=== PATIENT | male | born 1950 | race Two or more races ===

== ENCOUNTER 2024-08-09 18:24 | Inpatient (IN) | payer OTHER, MEDICAID ==
[~2024-08-09] VITALS: Ht 165.1 cm; Wt 72.6 kg
--- NOTE | 2024-08-09 18:31 | ED.PDOC ---
GI ASSESSMENT HPI Comments BALWINDER: HPI: Poor Historian. 73-year-old male brought in by ambulance from home after a witnessed near syncope and collapse from generalized weakness. Patient was on his way to the bathroom and he had an assisted himself to the floor but no loss of consciousness and no seizure-like activity. Patient had episodes of vomiting 3 times following this complaint yellow vomit nonbilious nonbloody. Patient also complained of some nonspecific generalized abdominal pain. At home his vital signs were blood pressure 102/58, heart rate 85, respiratory rate 18. Patient's pulse ox was 92% at 2 L nasal cannula his baseline. Past Medical History: COPD, O2 dependent 2 L nasal cannula, hypothyroidism, hyperlipidemia, hypertension, seizure, diabetes. Patient is on Lasix Plavix and Keppra. Past Surgical History: REVIEW OF SYSTEMS: CONSTITUTIONAL: Denies acute: fever, diaphoresis, chills, HEAD: Denies acute: headache, photophobia Eyes: Denies acute: Double vision, vision loss, eye pain, eye discharge. EARS: Denies acute: tinnitus, hearing loss, ear discharge, ear pain, THROAT: Denies acute: sore throat, swelling, difficulty swallowing , pain with swallowing, change in voice. NECK: Denies acute: neck pain, neck swelling, stiff neck. HEART: Denies acute : chest pain, palpitations, LUNGS: Denies acute: SOB, wheezing, cough, hemoptysis ABDOMEN: Denies acute: diarrhea, melena , hematemesis, hematochezia SKIN: Denies acute: rash, redness, lesions, itchiness. EXTREMITIES: Denies acute: calf pain, numbness, tingling, weakness, denies pain in extremity. Denies acute: Low back pain. Neuro: Denies acute: focal neurological deficit, motor or sensory focal neurological deficit, tremors, seizure like activity, confusion, , change in mental status, loss of bowel or bladder function, cauda equina like symptoms. : Denies acute: dysuria, hematuria, flank pain, increase in urinary frequency. PSYCH: Denies acute: hallucination, suicidal ideation, homicidal ideation. PHYSICAL EXAM: General: ---[id number]-----acute distress, awake and alert. Head: normocephalic, atraumatic. Neck: supple, trachea is midline, no swelling. Throat: Normal phonation. Eyes:, no erythema, no purulent discharge, no proptosis, no icterus. Heart: regular rate, regular rhythm, no significant murmur appreciated. Lungs: no apparent respiratory distress, No wheezing, no rhonchi, no crackles. No stridors Clear to auscultation bilaterally. Abdomen: Nonspecific generalized tender to palpation, non distended, soft, no guarding, no rebound, + bowel sounds. Neuro: Awake, Alert, oriented to name, self, Skin: no petechia, no purpura, no cyanosis, non-pale, not jaundice. Lower extremities: --no - Pitting edema no deformity, no focal swelling, no calf TTP. Makes eye contact. moves all four extremities. Face: no apparent facial droop. ED COURSE: Time Seen by MD: 18:27 Reviewed Notes: Nurses Notes, Allergies Allergies: Coded Allergies: NO KNOWN ALLERGIES (Unverified , 08/09/24) Information Source: Patient Was a procedure done? Was a procedure done?: No GI differential Dx Differential Diagnosis: Other (DDX include but not limited to diverticulitis, colitis, gastroenteritis, acute abdomen, SBO, enteritis, constipation, volvulus, appendicitis, Gallbladder disease, choledocolithiasis, ascending cholangitis, pancreatitis, intraAbdominal mass/neoplasm, hepatitis, UTI, pylonephritis, kidney stone, aneurysm, dissection, Inflammatory bowel disease, gastroparesis, ischemic bowel.) X-Ray, Labs, Meds, VS Vital Signs Date Time Temp Pulse Resp B/P (MAP) Pulse Ox O2 Delivery O2 Flow Rate FiO2 08/10/24 00:51 98.2 96 98 126/68 (87) 96 98.2 08/09/24 22:23 98.1 105 20 127/99 (108) 98 98.1 08/09/24 20:00 101 18 96 Non-Rebreather 15 N/A 08/09/24 19:00 97.1 102 32 114/66 (82) 92 97.1 08/09/24 19:00 103 32 92 Nasal Cannula* 4 36 08/09/24 18:32 98.2 85 18 102/58 (73) 92 98.2 Lab Test 08/09/24 23:20 08/09/24 21:35 08/09/24 19:37 08/09/24 18:43 Range/Units Troponin I High Sensitivity 44 28 19 18 </=54 ng/L Lactic Acid Level 4.9 *H 5.0 *H 0.4-2.0 mmol/L White Blood Count 13.9 H 4.4-10.8 10^3/uL Red Blood Count 4.67 4.5-5.90 10^6/uL Hemoglobin 12.6 L 13.5-17.5 g/dL Hematocrit 38.9 L 41.0-53.0 % Mean Corpuscular Volume 83.2 80.0-100.0 fL Mean Corpuscular Hemoglobin 26.9 L 28.0-32.0 pg Mean Corpuscular Hemoglobin Concent 32.3 32.0-36.0 g/dL Red Cell Distribution Width 19.3 H 11.8-14.3 % Platelet Count 315 140-450 10^3/uL Mean Platelet Volume 8.6 6.9-10.8 fL Neutrophils (%) (Auto) 69.1 37.0-80.0 % Lymphocytes (%) (Auto) 25.3 10.0-50.0 % Monocytes (%) (Auto) 3.6 0.0-12.0 % Eosinophils (%) (Auto) 1.5 0.0-7.0 % Basophils (%) (Auto) 0.5 0.0-2.0 % Neutrophils # (Auto) 9.6 H 1.6-8.6 10 ^3/uL Lymphocytes # (Auto) 3.5 0.4-5.4 10 ^3/uL Monocytes # (Auto) 0.5 0-1.3 10 ^3/uL Eosinophils # (Auto) 0.2 0-0.8 10 ^3/uL Basophils # (Auto) 0.1 0-0.2 10 ^3/uL Nucleated Red Blood Cells 0.1 % Platelet Estimate Adequate Anisocytosis (manual) Slight Sodium Level 141 136-145 mmol/L Potassium Level 3.3 L 3.5-5.1 mmol/L Chloride Level 99 98-107 mmol/L Carbon Dioxide Level 28 20-31 mmol/L Anion Gap 14 5-15 Blood Urea Nitrogen 20 9-23 mg/dL Creatinine 2.33 H 0.700-1.30 mg/dL Glomerular Filtration Rate Calc 28 >90 mL/min BUN/Creatinine Ratio 8.6 L 10.0-20.0 Serum Glucose 177 H 74-106 mg/dL Calcium Level 9.9 8.7-10.4 mg/dL Total Bilirubin 0.2 0.2-1.0 mg/dL Aspartate Amino Transferase (AST) 29 13-40 U/L Alanine Aminotransferase (ALT) 19 7-40 U/L Alkaline Phosphatase 85 46-116 U/L B-Type Natriuretic Peptide 55.27 0-100 pg/mL Total Protein 6.8 5.7-8.2 g/dL Albumin 4.3 3.2-4.8 g/dL Lipase 28 12-53 U/L Test 08/09/24 00:00 Range/Units Urine Color Yellow Yellow Urine Clarity Turbid H Clear Urine pH 5.0 5.0-9.0 Urine Specific [place] 1.019 1.001-1.035 Urine Protein Trace H Negative Urine Ketones Negative Negative Urine Blood Negative Negative /uL Urine Nitrite Negative Negative Urine Bilirubin Negative Negative Urine Urobilinogen Normal Negative mg/dL Urine Leukocyte Esterase Negative Negative /uL Urine RBC 1 0 - 3 /hpf Urine Microscopic WBC 2 0-3 /HPF Urine Squamous Epithelial Cells Few <5 /hpf Urine Bacteria Few H None Seen /hpf Urine Glucose 1+ H Normal mg/dL Current Medications Medications (Trade) Dose Ordered Sig/[place] Route Start Time Stop Time Status Last Admin Sodium Chloride 1,000 ml @ 1,000 mls/hr Q1H ONCE IV 08/09/24 19:30 08/09/24 20:29 DC 08/09/24 19:30 Ondansetron HCl (Zofran) 8 mg ONCE ONCE IV 08/09/24 19:30 08/09/24 19:33 DC 08/09/24 20:18 Piperacillin Sod/ Tazobactam Sod 100 ml @ 100 mls/hr ONCE ONCE IV 08/09/24 20:15 08/09/24 21:14 DC 08/09/24 20:18 Sodium Chloride 1,000 ml @ 1,000 mls/hr Q1H ONCE IV 08/09/24 23:15 08/10/24 00:14 DC 08/09/24 23:19 [place] [id number] Ph: [phone] DIAGNOSTIC IMAGING Diagnostic Imaging Report : [id number] Signed PATIENT: MARY JANE BRITT ACCT: [id number] UNIT: [id number] : 1950 LOC: ER ROOM / BED: / AGE / SEX: 73 / M ADM STATUS: REG ER SERVICE 30 ORDERING PHYSICIAN: WINSTON LOPEZ DO PROCEDURE(s): CXRP - CHEST PORTABLE REASON: weak, dizzy ORDER NUMBER(s): [id number], ACCESSION NUMBER(s): [id number] EXAM: XY CHEST PORTABLE TECHNIQUE: Single frontal chest radiograph CLINICAL HISTORY: weak, dizzy COMPARISON: None Findings/Impression: Frontal chest radiograph demonstrates no acute osseous or superficial soft tissue abnormalities. The trachea is midline. The cardiac silhouette and mediastinum are within normal limits. No pneumothorax, pleural effusions, or consolidations. ATED BY: EUGENIA MAN DO DICTATED DATE/TIME: 08/09/241919 SIGNED BY: EUGENIA MAN DO SIGNED DATE/TIME: 08/09/241919 CC: [place] [id number] Ph: [phone] DIAGNOSTIC IMAGING Diagnostic Imaging Report : [id number] Signed PATIENT: MARY JANE BRITT ACCT: [id number] UNIT: [id number] : 1950 LOC: ER ROOM / BED: / AGE / SEX: 73 / M ADM STATUS: REG ER SERVICE 30 ORDERING PHYSICIAN: WINSTON LOPEZ DO PROCEDURE(s): ABPL - CT AB PEL WO CON-NO ORAL OR IV REASON: abd pain n/v ORDER NUMBER(s): [id number], ACCESSION NUMBER(s): [id number] Exam: CT CT AB PEL WO CON-NO ORAL OR IV History: abd pain n/v Comparison Study: None TECHNIQUE: Multidetector CT of the abdomen and pelvis was performed from lung bases to pubic symphysis. Imaging was performed without IV contrast. Axial, coronal, and sagittal multiplanar reformats were obtained from the axial data set by the technologist. RADIATION DOSE: DLP 687.99 mGy.cm; CTDI vol 13.03 mGy. Findings: There is motion artifact. Lungs: Numerous scattered clustered nodular opacities. Heart: No cardiomegaly or pericardial effusion. Severe coronary atherosclerosis versus stents. Liver: Unremarkable. Gallbladder: Cholelithiasis without evidence of acute cholecystitis. Spleen: Unremarkable Pancreas: Atrophic pancreas. Adrenals: Unremarkable Kidneys: Unremarkable GI tract: Diverticulosis without evidence of acute diverticulitis. : Unremarkable. Vasculature: Moderate aortoiliac atherosclerosis. Lymphadenopathy: Absent Peritoneum: No ascites Musculoskeletal: Mild multilevel degenerative changes of the thoracolumbar spine. Soft tissues: Unremarkable Impression: 1. No acute abdominopelvic abnormalities. 2. Cholelithiasis without evidence of acute cholecystitis. 3. Diverticulosis without evidence acute diverticulitis. ATED BY: EUGENIA MAN DO DICTATED DATE/TIME: 08/09/241956 SIGNED BY: EUGENIA MAN DO SIGNED DATE/TIME: 08/09/241956 CC: Images Reviewed?: Images reviewed and evaluated by me Time of 1ST Reevaluation: 21:14 Reevaluation 1ST: Improved Time of 2ND Reevaluation: 22:40 ( is now at bedside.) Reevaluation 2ND: Improved Time of 3RD Reevaluation: 23:13 (Urinalysis still pending.The case was discussed with the [facility] admitting team (HPI, physical exam, labs and diagnostic tests that were available at the time of disposition, ED course, treatment plan) on the phone. They authorized us to keep the patient our facility Dr. berrios Authorization number is--[id number] doctor communicated to me that the patient's baseline creatinine is 1.7 so the patient is in acute kidney insufficiency. His ejection fraction in December of 2023 is 55-60% I will give more fluids.) Patient Education/Counseling: Other Family Education/Counseling: Diagnosis, Treatment Comments Sepsis protocol was initiated. Patient was given conservative fluid hydration given his history of CHF on Lasix with unknown ejection fraction. Patient presented with the above HPI.---cardiac and abdominal pain---workup was initiated. patient was found with the above mentioned diagnosis. the following medications were ordered: please refer to order lists of meds and tests obtained by myself Dr. Lopez. Patient ED course and VS have been stabilized. Patient has been reassessed in the ED and remained in a stable condition. Pertinent incidental findings were discussed with the patient and/or family. Patient/family voices understanding and is agreeable with plan. Patient has been observed in the ED adequate length of time to insure improvement/stability. Escalation of care considered: Consideration of escalation to observation or admission George was consulted. Patient was ADMITTED to the medicine team for further evaluation and treatment of their presentation. All the reports of any imaging studies that were ordered by myself were reviewed by myself. Departure 1 Departure Time of Disposition: 19:30 Impression: Primary Impression: Near syncope Additional Impressions: Nausea and vomiting Abdominal pain Sepsis Leukocytosis Elevated lactic acid level Acute renal insufficiency Disposition: ADMITTED INPATIENT Admit to: [facility] Condition: Guarded Discharged With: Self Critical Care Note Critical Care Time?: Yes (1 hr-critical care time only) Heart Score Heart Score: Heart Score Response (Comments) Value History Slightly Suspicious 0 EKG Normal 0 Age >65 2 Risk Factors >3 or Hx ASHD 2 Troponin Normal limit 0 Total 4 I personally scribed for WINSTON LOPEZ DO ([email or web address]) on 08/09/24 at 21:21. Electronically submitted by Wilberto Kebede ([email or web address]). WINSTON LOPEZ DO Aug 09, 2024 18:31
[2024-08-09 19:00] VITALS: PULSE 103; RESP 32; O2SAT 92
[2024-08-09 19:10] LABS: Basophils # (auto) 0.1 10 ^3/uL (0-0.2); Eosinophils # (auto) 0.2 10 ^3/uL (0-0.8); Hemoglobin 12.6 g/dL (13.5-17.5); Nucleated Red Blood Cells % 0.1 %
[2024-08-09 19:12] LABS: Basophils % (auto) 0.5 % (0.0-2.0); Eosinophils % (auto) 1.5 % (0.0-7.0); Hematocrit 38.9 % (41.0-53.0); Lymphocytes # (auto) 3.5 10 ^3/uL (0.4-5.4); Lymphocytes % (auto) 25.3 % (10.0-50.0); Mean Corpuscular Hemoglobin 26.9 pg (28.0-32.0); Mean Corpuscular Hgb Conc. 32.3 g/dL (32.0-36.0); Mean Corpuscular Volume 83.2 fL (80.0-100.0); Monocytes # (auto) 0.5 10 ^3/uL (0-1.3); Monocytes % (auto) 3.6 % (0.0-12.0); Neutrophils # (auto) 9.6 10 ^3/uL (1.6-8.6); Neutrophils % (auto) 69.1 % (37.0-80.0); Platelet Count (auto) 315 10^3/uL (140-450); Red Blood Cells 4.67 10^6/uL (4.5-5.90); Red Cell Distribution Width 19.3 % (11.8-14.3); White Blood Cell 13.9 10^3/uL (4.4-10.8)
--- NOTE | 2024-08-09 19:23 | DVH ---
EXAM: XY CHEST PORTABLE TECHNIQUE: Single frontal chest radiograph CLINICAL HISTORY: weak, dizzy COMPARISON: None Findings/Impression: Frontal chest radiograph demonstrates no acute osseous or superficial soft tissue abnormalities. The trachea is midline. The cardiac silhouette and mediastinum are within normal limits. No pneumothorax, pleural effusions, or consolidations.
[2024-08-09] MEDS: SODIUM CHLORIDE 0.9% 1,000 ML IV ONE ×2 (19:30→23:19)
[2024-08-09 19:45] LABS: Alanine Aminotransferase 19 U/L (7-40); Albumin 4.3 g/dL (3.2-4.8); Alkaline Phosphatase 85 U/L (46-116); Anion Gap 14 (5-15); Aspartate Aminotransferase 29 U/L (13-40); BUN/Creatinine Ratio 8.6 (10.0-20.0); Blood Urea Nitrogen 20 mg/dL (9-23); Calcium 9.9 mg/dL (8.7-10.4); Carbon Dioxide 28 mmol/L (20-31); Chloride 99 mmol/L (98-107); Lipase 28 U/L (12-53); Sodium 141 mmol/L (136-145); Total Protein 6.8 g/dL (5.7-8.2)
[2024-08-09 19:49] LABS: Bilirubin, Total 0.2 mg/dL (0.2-1.0); Glucose 177 mg/dL (74-106); Potassium 3.3 mmol/L (3.5-5.1)
[2024-08-09 20:00] VITALS: PULSE 101; RESP 18; O2SAT 96
--- NOTE | 2024-08-09 20:00 | DVH ---
Exam: CT CT AB PEL WO CON-NO ORAL OR IV History: abd pain n/v Comparison Study: None TECHNIQUE: Multidetector CT of the abdomen and pelvis was performed from lung bases to pubic symphysi s. Imaging was performed without IV contrast. Axial, coronal, and sagittal multiplanar reformats were obtained from the axial data set by the technologist. RADIATION DOSE: DLP 687.99 mGy.cm; CTDI vol 13.03 mGy. Findings: There is motion artifact. Lungs: Numerous scattered clustered nodular opacities. Heart: No cardiomegaly or pericardial effusion. Severe coronary atherosclerosis versus stents. Liver: Unremarkable. Gallbladder: Cholelithiasis without evidence of acute cholecystitis. Spleen: Unremarkable Pancreas: Atrophic pancreas. Adrenals: Unremarkable Kidneys: Unremarkable GI tract: Diverticulosis without evidence of acute diverticulitis. : Unremarkable. Vasculature: Moderate aortoiliac atherosclerosis. Lymphadenopathy: Absent Peritoneum: No ascites Musculoskeletal: Mild multilevel degenerative changes of the thoracolumbar spine. Soft tissues: Unremarkable Impression: 1. No acute abdominopelvic abnormalities. 2. Cholelithiasis without evidence of acute cholecystitis. 3. Diverticulosis without evidence acute diverticulitis.
[2024-08-09] MEDS: ONDANSETRON HCL 4 MG/2 ML VIAL IV ONE (20:18)
[2024-08-09] MEDS: PIPERACILLIN-TAZOB 3.375GM 100 ML IV ONE (20:18)
[2024-08-09 20:41] LABS: Anisocytosis Slight; Platelet Estimate Adequate
[2024-08-10] VITALS (23 sets, daily range): BP systolic 91–138; BP diastolic 43–68; PULSE 83–105; RESP 16–30; TEMP 98–98.6; O2SAT 88–100
[2024-08-10 00:06] LABS: Urine Bacteria FEW /hpf (None Seen); Urine Blood Negative /uL (Negative); Urine Clarity Turbid (Clear); Urine Color Yellow (Yellow); Urine Protein, UAD TRACE (Negative); Urine Specific Gravity 1.019 (1.001-1.035); Urine Squamous Epithelial Cell FEW /hpf (<5); Urine Urobilinogen Normal (Negative); Urine WBC 2 /HPF (0-3)
[2024-08-10] MEDS ORDERED: MORPHINE SULFATE INJ 2 MG/ml SYRG IV PRN (01:15)
[2024-08-10] MEDS ORDERED: NITROGLYCERIN 0.4 MG SL TAB SL PRN (01:15)
[2024-08-10 01:57] LABS: Basophils # (auto) 0 10 ^3/uL (0-0.2); Basophils % (auto) 0.2 % (0.0-2.0); Eosinophils # (auto) 0 10 ^3/uL (0-0.8); Hematocrit 34.1 % (41.0-53.0); Hemoglobin 11.1 g/dL (13.5-17.5); Lymphocytes # (auto) 0.1 10 ^3/uL (0.4-5.4); Lymphocytes % (auto) 3.5 % (10.0-50.0); Mean Corpuscular Hemoglobin 27.3 pg (28.0-32.0); Mean Corpuscular Hgb Conc. 32.6 g/dL (32.0-36.0); Mean Corpuscular Volume 83.9 fL (80.0-100.0); Monocytes # (auto) 0.4 10 ^3/uL (0-1.3); Monocytes % (auto) 10.4 % (0.0-12.0); Neutrophils # (auto) 3.6 10 ^3/uL (1.6-8.6); Neutrophils % (auto) 85.9 % (37.0-80.0); Nucleated Red Blood Cells % 0.1 %; Platelet Count (auto) 206 10^3/uL (140-450); Red Blood Cells 4.06 10^6/uL (4.5-5.90); Red Cell Distribution Width 19.5 % (11.8-14.3); White Blood Cell 4.2 10^3/uL (4.4-10.8)
[2024-08-10 02:01] LABS: Alanine Aminotransferase 18 U/L (7-40); Albumin 3.8 g/dL (3.2-4.8); Alkaline Phosphatase 65 U/L (46-116); Anion Gap 11 (5-15); Aspartate Aminotransferase 28 U/L (13-40); BUN/Creatinine Ratio 9.4 (10.0-20.0); Blood Urea Nitrogen 22 mg/dL (9-23); Carbon Dioxide 26 mmol/L (20-31); Chloride 101 mmol/L (98-107); Potassium 3.9 mmol/L (3.5-5.1); Sodium 138 mmol/L (136-145); Total Protein 5.9 g/dL (5.7-8.2)
[2024-08-10 02:02] LABS: Bilirubin, Total 0.3 mg/dL (0.2-1.0)
[2024-08-10 02:34] LABS: Calcium 8.5 mg/dL (8.7-10.4); Glucose 291 mg/dL (74-106); Lactic Acid w/Reflex 4.2 mmol/L (0.4-2.0)
[2024-08-10 02:41] LABS: COVID19 ANTIGEN SOFIA FIA NEGATIVE (NEGATIVE); Rapid Influenza A Negative (Negative); Rapid Influenza B Negative (Negative)
[2024-08-10] MEDS: levETIRAcetam 1000 mg/100ml 100 ML IV ONE (02:45)
[2024-08-10] MEDS ORDERED: DEXTROSE (50%) 50ML SYRG IV PRN ×2 (03:00→07:45)
[2024-08-10] MEDS: POTASSIUM CHL 20MEQ/100ML 100 ML IV SCH (03:05)
[2024-08-10] MEDS: SODIUM CHLORIDE 0.9% 1,000 ML IV ONE (03:13)
[2024-08-10] MEDS: INSULIN LANTUS (GLARGINE) 1 /0.01ml (100units/ml) SC ONE (03:22)
[2024-08-10] MEDS: methylPREDNISolone SOD SUCC 40 MG/ML VL IV ONE (04:07)
[2024-08-10] MEDS: ALBUTEROL SULF 2.5 MG/0.5ML(0.5%) NEB SOLN NEB ONE (04:14)
[2024-08-10] MEDS: IPRATROPIUM BROM 0.5 MG/2.5ML INH SOL NEB ONE (04:14)
[2024-08-10] MEDS: PIPERACILLIN-TAZOB 3.375GM 100 ML IV SCH (05:15)
--- NOTE | 2024-08-10 05:28 | DVHHPRES ---
History of Present Illness Resident Creating Document: REBECCA MARES RESIDENT History of Present Illness Patient is a 73-year-old male with a past medical history of type 2 diabetes mellitus, hypertension, COPD, coronary artery disease status post PCI in 2023 according to his son, hyperlipidemia, seizure disorder was brought to the ER from [place] where he was for physical therapy rehabilitation had apparently had an episode of a fall but denied loss of consciousness and no seizure-like activity was witnessed. Patient also had episode of vomiting 3 times which was nonbilious and nonbloody. On talking to the patient while in the ER a good history could not be obtained because patient was sleepy and even with the using the wire rope sling maker his voice was not clear and he was not able to speak in full sentences. Patient's son Rohit Euceda was called to confirmed that the patient was in [place] [facility] and he got a call that he was being transferred to [facility] apparently for abdominal pain and reports that patient was there for physical therapy rehab. He also foods patient having recurrent vomitings but does not know the reason. Past medical history: Insulin dependent type 2 diabetes mellitus, hypertension, COPD, coronary artery disease status post PCI in 2023 according to his son, hyperlipidemia, seizure disorder, Past surgical history could not be obtained Social history: Lives with his , as per the son patient does not smoke drink or do any drugs Home medications: Insulin Humulin, Keppra 1000 mg b.i.d., losartan 100 mg, atorvastatin 80 mg, clopidogrel, ?Amiodarone Review of Systems Review of Systems Patient seen and examined at the bedside On oxygen via nasal cannula at 4 L/min and is not able to talk in full sentences with the use of accessory muscles of breathing Denies chest pain Reports of abdominal pain with a generalized tenderness/discomfort to palpation Is able to follow commands and is alert and oriented x3 Allergies: Coded Allergies: NO KNOWN ALLERGIES (Unverified , 08/09/24) Medications Current Medications Medications Dose Ordered Sig/[place] Route Start Time Stop Time Status Last Admin Dose Admin Nitroglycerin 0.4 mg Q5MINP PRN SL 08/10/24 01:15 Morphine Sulfate 2 mg Q30M PRN IV 08/10/24 01:15 Piperacillin Sod/ Tazobactam Sod 100 ml @ 25 mls/hr Q8HR IV 08/10/24 06:00 Levetiracetam 100 ml @ 400 mls/hr BID IV 08/10/24 10:00 Diagnostic Test (Pha) 1 strip Q6HR 08/10/24 06:00 Insulin Human Regular Q6HR SC 08/10/24 06:00 Dextrose 50 ml UD PRN IV 08/10/24 03:00 Albuterol 2.5 mg Q6HR NEB 08/10/24 06:00 Ipratropium [place] 0.5 mg Q6HR NEB 08/10/24 06:00 Exam Vital Signs Vital Signs Date Time Temp Pulse Resp B/P (MAP) Pulse Ox O2 Delivery O2 Flow Rate FiO2 08/10/24 04:16 90 30 96 08/10/24 04:16 Nasal Cannula 5.0 08/10/24 04:16 40 08/10/24 00:51 98.2 126/68 (87) 98.2 Exam Gen - no pallor, no icterus, no cyanosis, no clubbing, no LAD, no edema . Skin - Patients skin is warm and dry. HEENT - normocephalic, atraumatic, dry mucous membranes. Neck - full ROM, no LAD, JV pulsation in the lower 3rd of the SCM Pulmonary - B/L diminished breath sounds with the associated scattered wheezes, minimal basilar crackles, no stridor. cardiovascular - regular S1,S2 heard, no added sounds, no murmurs heard. perip heral pulses normal radial 2+, pedal 2+. capillary refill normal about 3 secs. GI - soft abdomen with diffuse generalized mild tenderness to palpation. no hepatospleenomegaly. Bowel sounds normoactive Neurological - Patient is A/O X 3 . Bilateral upper extremity strength 4/5, bilateral lower extremity strength 3/5, no facial droop, speech normal, no tremor, no sensory deficiets. Labs/Xrays Labs Test 08/10/24 03:32 08/10/24 03:17 08/10/24 01:50 08/10/24 01:33 Range/Units Lactic Acid Level 4.0 *H 0.4-2.0 mmol/L POC Glucose 299 H 70-106 mg/dl Influenza Type A Antigen Negative Negative Influenza Type B Antigen Negative Negative SARS-CoV-2 Antigen (Rapid) Negative NEGATIVE White Blood Count 4.2 #L 4.4-10.8 10^3/uL Red Blood Count 4.06 L 4.5-5.90 10^6/uL Hemoglobin 11.1 L 13.5-17.5 g/dL Hematocrit 34.1 #L 41.0-53.0 % Mean Corpuscular Volume 83.9 80.0-100.0 fL Mean Corpuscular Hemoglobin 27.3 L 28.0-32.0 pg Mean Corpuscular Hemoglobin Concent 32.6 32.0-36.0 g/dL Red Cell Distribution Width 19.5 H 11.8-14.3 % Platelet Count 206 140-450 10^3/uL Mean Platelet Volume 8.7 6.9-10.8 fL Neutrophils (%) (Auto) 85.9 H 37.0-80.0 % Lymphocytes (%) (Auto) 3.5 L 10.0-50.0 % Monocytes (%) (Auto) 10.4 0.0-12.0 % Eosinophils (%) (Auto) 0.0 0.0-7.0 % Basophils (%) (Auto) 0.2 0.0-2.0 % Neutrophils # (Auto) 3.6 1.6-8.6 10 ^3/uL Lymphocytes # (Auto) 0.1 L 0.4-5.4 10 ^3/uL Monocytes # (Auto) 0.4 0-1.3 10 ^3/uL Eosinophils # (Auto) 0 0-0.8 10 ^3/uL Basophils # (Auto) 0 0-0.2 10 ^3/uL Nucleated Red Blood Cells 0.1 % Sodium Level 138 136-145 mmol/L Potassium Level 3.9 3.5-5.1 mmol/L Chloride Level 101 98-107 mmol/L Carbon Dioxide Level 26 20-31 mmol/L Anion Gap 11 5-15 Blood Urea Nitrogen 22 9-23 mg/dL Creatinine 2.33 H 0.700-1.30 mg/dL Glomerular Filtration Rate Calc 28 >90 mL/min BUN/Creatinine Ratio 9.4 L 10.0-20.0 Serum Glucose 291 #H 74-106 mg/dL Hemoglobin A1c 9.3 H <5.7 % A1C Calcium Level 8.5 L 8.7-10.4 mg/dL Total Bilirubin 0.3 0.2-1.0 mg/dL Aspartate Amino Transferase (AST) 28 13-40 U/L Alanine Aminotransferase (ALT) 18 7-40 U/L Alkaline Phosphatase 65 46-116 U/L Total Protein 5.9 5.7-8.2 g/dL Albumin 3.8 3.2-4.8 g/dL Test 08/10/24 01:32 08/09/24 23:20 08/09/24 18:43 08/09/24 00:00 Range/Units Blood Gas Specimen Type Arterial Blood Gas Sample Site Right brachial Blood Gas Patient Temperature 37.0 Arterial Blood Date Drawn [id number] Arterial Blood pH 7.288 L 7.350-7.450 Arterial Blood Partial Pressure CO2 51.0 H 35.0-48.0 mmHg Arterial Blood Partial Pressure O2 88.8 83.0-108.0 mmHg Arterial Blood HCO3 23.9 21.0-28.0 mmol/L Arterial Blood Oxygen Saturation 95.4 94.0-98.0 % Arterial Blood Base Excess -3.0 L -2.0-3.0 mmol/L Arterial Blood Oxyhemoglobin 94.8 94.0-98.0 % Arterial Blood Carboxyhemoglobin 0.5 0.5-1.5 % Arterial Blood Methemoglobin 0.1 0.0-1.5 % Charles Test N/a Blood Gas Total Hemoglobin 11.40 L 13.5-17.5 g/dL Blood Gas Liter Flow 15.00 Blood Gas Modality Mask - nrb FiO2 % 100.0 Troponin I High Sensitivity 44 </=54 ng/L Platelet Estimate Adequate Anisocytosis (manual) Slight B-Type Natriuretic Peptide 55.27 0-100 pg/mL Lipase 28 12-53 U/L Urine Color Yellow Yellow Urine Clarity Turbid H Clear Urine pH 5.0 5.0-9.0 Urine Specific [place] 1.019 1.001-1.035 Urine Protein Trace H Negative Urine Ketones Negative Negative Urine Blood Negative Negative /uL Urine Nitrite Negative Negative Urine Bilirubin Negative Negative Urine Urobilinogen Normal Negative mg/dL Urine Leukocyte Esterase Negative Negative /uL Urine RBC 1 0 - 3 /hpf Urine Microscopic WBC 2 0-3 /HPF Urine Squamous Epithelial Cells Few <5 /hpf Urine Bacteria Few H None Seen /hpf Urine Glucose 1+ H Normal mg/dL Assessment/Plan Assessment/Plan acute metabolic encephalopathy likely due to sepsis History of seizure disorder - on Keppra 1000 mg b.i.d. Acute on chronic hypoxic respiratory failure COPD exacerbation Possible aspiration pneumonia Possible underlying congestive heart failure - ABG showed respiratory acidosis - chest x-ray showed pulmonary venous congestion, interstitial opacities - lower lungs in the CT abdomen showed bilateral opacities more on the right - point of care ultrasound showed a right lung B lines - DuoNebs q.6 hours - methylprednisolone 40 mg q.8 hours - Zosyn q.8 hours - sputum culture pending - COVID and influenza negative ?congestive heart failure Coronary artery disease s/p PCI - echo pending - EKG pending - BNP normal - chest x-ray and CT abdomen shows lower lungs opacifications suspicion of fluid overload - Plavix and atorvastatin - Lasix currently held because the patient is septic Sepsis likely due to aspiration pneumonia Lactic acidosis - IV fluids total 3 L given - on Zosyn - sputum culture pending - blood culture pending Acute intractable abdominal pain Cholelithiasis - CT abdomen pelvis shows cholelithiasis without evidence of cholecystitis, diverticulosis - right upper quadrant ultrasound pending - on pureed diet GRETCHEN on CKD likely prerenal due to be VMN - urine studies pending - IV fluids given Uncontrolled insulin dependent type 2 diabetes mellitus with hyperglycemia - insulin Lantus 12 units - moderate insulin sliding scale - pureed diet PUD prophylaxis: Protonix DVT prophylaxis: Heparin( poor kidney function) Goals of care discussed with the patient's son Rohit for over 25 minutes. Full code Time spent: 47 minutes Plan discussed with Dr. Springer Plan discussed with: Patient, Son My Orders Orders - REBECCA MARES RESIDENT Procedure Category Date Status Time Admit ADMIT 08/10/24 Transmitted 01:02 Nitroglycerin PHA 08/10/24 In Process Sublingual (Ntrostat 01:15 Morphine Sulfate PHA 08/10/24 In Process Injection 01:15 Oxygen By Nasal RT 08/10/24 Transmitted Cannula 01:02 Stat Ekg For Chest JAMIL 08/10/24 In Process Pain 01:02 Notify Of Changes [facility] 08/10/24 In Process From Base 01:02 Nurse Receptionist For [facility] 08/10/24 In Process 24 Hours 01:02 Emergency Dysrhythmia [facility] 08/10/24 In Process Protocol 01:02 Rhythm Strips Once [facility] 08/10/24 In Process Every Shift 01:02 Abg W/ Co-Ox RT 08/10/24 Logged 01:02 Piperacillin-Tazob PHA 08/10/24 In Process 3.375gm (Zosyn 3.375g 06:00 Mrsa Screen SAMANTHA 08/10/24 Logged 01:02 Respiratory Culture SAMANTHA 08/10/24 Logged W/ Gs 01:02 Levetiracetam 1000 PHA 08/10/24 In Process Mg/100ml (Levetiracet 10:00 Glucose Blood PHA 08/10/24 In Process (Accu-Chek Comfort 06:00 Insulin R (Human) PHA 08/10/24 In Process (Insulin R) 06:00 Dextrose 50% Syringe PHA 08/10/24 In Process 03:00 Npo (Nothing By DIET 08/10/24 Transmitted Mouth) Diet Breakfast Echo 2d Mode Cardiac US 08/10/24 Logged DOP 02:53 Albuterol Medneb PHA 08/10/24 In Process (Ventolin Medneb) 06:00 Ipratropium Medneb PHA 08/10/24 In Process (Atrovent Medneb) 06:00 Insert Peres Catheter JAMIL 08/10/24 In Process 03:52 Strict I & O JAMIL 08/10/24 In Process 03:52 Date of Service: Aug 10, 2024 Billing Provider: JG SPRINGER MD Common Visit Codes: [id number] INP/OBS CARE (HIGH) Secondary Visit Codes: [id number] CARE PLAN 30 MINUTES REBECCA MARES RESIDENT Aug 10, 2024 05:28
[2024-08-10] MEDS ORDERED: InsuLIN REG 1unit/0.01ml Soln (100units/ml) SC SCH (06:00)
[2024-08-10] MEDS: ACCU-CHEK COMFORT CURVE STRIP VI SCH ×2 (06:09→11:30)
[2024-08-10] MEDS: PANTOPRAZOLE 40 MG/10 ML VIAL INJ IV SCH (06:09)
[2024-08-10] MEDS: InsuLIN REG 1unit/0.01ml Soln (100units/ml) SC SCH ×2 (06:14→12:16)
[2024-08-10] MEDS ORDERED: LOSA-535 PO (06:21)
[2024-08-10] MEDS ORDERED: ATOR-47 PO (06:21)
[2024-08-10] MEDS ORDERED: LEVE100012 PO (06:21)
[2024-08-10] MEDS: IPRATROPIUM BROM 0.5 MG/2.5ML INH SOL NEB SCH (06:26)
[2024-08-10] MEDS: ALBUTEROL SULF 2.5 MG/0.5ML(0.5%) NEB SOLN NEB SCH (06:26)
[2024-08-10 07:58] LABS: Protein, Urine 37.3 mg/dL (1-14)
[2024-08-10 07:59] LABS: Creatinine, Urine 87.22 mg/dL (30.0-125.0); Urine Protein/Creatinine Ratio 0.43
--- NOTE | 2024-08-10 08:41 | DVH ---
US BiLat Lower DVT HISTORY: Rule out DVT COMPARISON: None TECHNIQUE: Duplex doppler evaluation of the deep venous system of the lower extremity from the common femoral veins, superficial femoral vein, great saphenous vein, deep femoral vein, popliteal vein, an d calf veins, including color doppler and spectral/pulsed waveform analysis, was performed. FINDINGS: Right: - Common femoral vein: Compressible - Deep femoral vein: Compressible - Femoral vein: Compressible - Popliteal vein: Compressible - Posterior tibial vein: Waveforms present - Other: Nothing Left: - Common femoral vein: Compressible - Deep femoral vein: Compressible - Femoral vein: Compressible - Popliteal vein: Compressible - Posterior tibial vein: No flow. - Other: Nothing IMPRESSION: Small DVT in the left posterior tibial vein. Otherwise no right or left lower extremity deep venous t hrombosis.
[2024-08-10] MEDS: levETIRAcetam 1000 mg/100ml 100 ML IV SCH (08:54)
[2024-08-10] MEDS: CLOPIDOGREL BISULFATE 75 MG TAB PO SCH (08:57)
[2024-08-10] MEDS: HEPARIN SODIUM (PORCINE) 5000 UNITS/ML 1ML VIAL SC SCH (09:07)
[2024-08-10 09:18] LABS: Lactic Acid w/Reflex 7.2 mmol/L (0.4-2.0)
[2024-08-10 10:05] LABS: Anion Gap 13 (5-15); Carbon Dioxide 23 mmol/L (20-31); Chloride 103 mmol/L (98-107); Hematocrit 32.2 % (41.0-53.0); Hemoglobin 10.6 g/dL (13.5-17.5); Mean Corpuscular Hemoglobin 27.3 pg (28.0-32.0); Mean Corpuscular Hgb Conc. 32.9 g/dL (32.0-36.0); Mean Corpuscular Volume 83.1 fL (80.0-100.0); Platelet Count (auto) 189 10^3/uL (140-450); Potassium 3.9 mmol/L (3.5-5.1); Red Blood Cells 3.87 10^6/uL (4.5-5.90); Red Cell Distribution Width 19.1 % (11.8-14.3); Sodium 139 mmol/L (136-145); White Blood Cell 7.6 10^3/uL (4.4-10.8)
[2024-08-10 10:05] LABS: Base Excess -2.1 mmol/L (-2.0-3.0)
[2024-08-10 10:07] LABS: Basophils % (manual) 0 (0.0-2.0); Blast Cells 0; Eosinophils % (manual) 0 (0-7); Metamyelocytes % 0; Myelocytes % 0; Promyelocytes % 0; Reactive Lymphocytes 0
[2024-08-10 10:11] LABS: BUN/Creatinine Ratio 12.3 (10.0-20.0); Blood Urea Nitrogen 24 mg/dL (9-23); Glucose 372 mg/dL (74-106)
--- NOTE | 2024-08-10 10:15 | DVH ---
INDICATION: Right upper quadrant to rule out acute cholecystitis TECHNIQUE: Multiple real-time sonographic images of the abdomen were obtained. COMPARISON: None FINDINGS: The liver is homogenous in echogenicity. The liver measures 14cm. No intrahepatic biliary ductal dilatation is noted. The gallbladder wall measures 0.2 cm and is unremarkable. No gallstones or sludge is seen. No brian cholecystic fluid is noted. The right kidney measures 12cm. No hydronephrosis. The pancreas is not well visualized due to obscuration from bowel gas. The visualized portions of the IVC and aorta are grossly unremarkable. IMPRESSION: Normal exam of the abdomen.
[2024-08-10 10:54] LABS: Band Neutrophils % (manual) 22; Lymphocytes % (manual) 13 (10.0-50.0); Monocytes % (manual) 3 (0-12); Platelet Estimate Adequate
[2024-08-10] MEDS: INSULIN LISPRO (HUMAN) 100 UNITS/ML ML SC SCH (12:20)
[2024-08-10] MEDS: ENOXAPARIN SOD 80 MG/0.8ML SYRINGE SC SCH (12:20)
--- NOTE | 2024-08-10 13:31 | DVHPNRES ---
Progress Note Date Seen: Aug 10, 2024 Resident Creating Document: EMANUEL FIORE RESIDENT Has the PT tested + for MRSA If YES, has PT been informed?: No Medical Necessity Reason Pt with a Central, PICC or Fol: No Subjective Review of Systems Patient is a 73-year-old male with a past medical history of type 2 diabetes mellitus, hypertension, COPD, coronary artery disease status post PCI in 2023 according to his son, hyperlipidemia, seizure disorder was brought to the ER from [place] [facility] where he was for physical therapy rehabilitation had apparently had an episode of a fall but denied loss of consciousness and no seizure-like activity was witnessed. Patient also had episode of vomiting 3 times which was nonbilious and nonbloody. On talking to the patient while in the ER a good history could not be obtained because patient was sleepy and even with the using the court operations clerk his voice was not clear and he was not able to speak in full sentences. Patient's son Rohit Euceda was called to confirmed that the patient was in [place] [facility] and he got a call that he was being transferred to [facility] apparently for abdominal pain and reports that patient was there for physical therapy rehab. He also foods patient having recurrent vomitings but does not know the reason. Past medical history: Insulin dependent type 2 diabetes mellitus, hypertension, COPD, coronary artery disease status post PCI in 2023 according to his son, hyperlipidemia, seizure disorder, Past surgical history could not be obtained Social history: Lives with his , as per the son patient does not smoke drink or do any drugs Home medications: Insulin Humulin, Keppra 1000 mg b.i.d., losartan 100 mg, atorvastatin 80 mg, clopidogrel, ?Amiodarone 08/10/2024: talking to the at bedside, patient had an episode of near syncope, w/o fall or LOC, patient is being altered since 2 days ago, vomiting yellow content, patient smoked for many years and sometimes hide cigarettes from his , a month ago he was in [facility] due to high BP and uncontrolled diabetes and later transferred to [facility] for PT rehab Objective vital signs Vital Sign Date Time Temp Pulse Resp B/P (MAP) Pulse Ox O2 Delivery O2 Flow Rate FiO2 08/10/24 12:57 98.6 83 16 135/59 (84) 96 98.6 08/10/24 10:15 Nasal Cannula* 2 28 Total Intake and Output 6/5/25 6/5/25 6/6/25 15:00 23:00 07:00 Intake Total 2100 ml Balance 2100 ml medications Current Medications Medications Dose Ordered Sig/[place] Route Start Time Stop Time Status Last Admin Dose Admin Nitroglycerin 0.4 mg Q5MINP PRN SL 08/10/24 01:15 Morphine Sulfate 2 mg Q30M PRN IV 08/10/24 01:15 Piperacillin Sod/ Tazobactam Sod 100 ml @ 25 mls/hr Q8HR IV 08/10/24 06:00 08/10/24 05:15 25 MLS/HR Levetiracetam 100 ml @ 400 mls/hr BID IV 08/10/24 10:00 08/10/24 08:54 400 MLS/HR Albuterol 2.5 mg Q6HR NEB 08/10/24 06:00 08/10/24 12:20 2.5 MG Methylprednisolone Sodium Succinate 40 mg Q8HR IV 08/10/24 14:00 Clopidogrel Bisulfate 75 mg DAILY PO 08/10/24 10:00 08/10/24 08:57 75 MG Atorvastatin Calcium 80 mg HS PO 08/10/24 22:00 Pantoprazole Sodium 40 mg DAILY IV 08/10/24 06:00 08/10/24 08:57 40 MG Insulin Glargine 18 units HS ND 08/10/24 22:00 Insulin Human Lispro 6 units [facility] 08/10/24 11:30 08/10/24 12:20 6 UNITS Diagnostic Test (Pha) 1 strip ACHS 08/10/24 11:30 08/10/24 11:30 1 STRIP Insulin Human Regular use insulin lispro ... AC ND 08/10/24 11:30 08/10/24 12:16 4 UNITS Dextrose 50 ml UD PRN IV 08/10/24 07:45 Enoxaparin Sodium 70 mg Q12HR ND 08/10/24 11:30 08/10/24 12:20 70 MG Examination Gen - no pallor, no icterus, no cyanosis, no clubbing, no LAD, no edema . Skin - Patients skin is warm and dry. HEENT - normocephalic, atraumatic, dry mucous membranes. Neck - full ROM, no LAD, JV pulsation in the lower 3rd of the SCM Pulmonary - B/L diminished breath sounds with the associated scattered wheezes, minimal basilar crackles, no stridor. cardiovascular - regular S1,S2 heard, no added sounds, no murmurs heard. peripheral pulses normal radial 2+, pedal 2+. capillary refill normal about 3 secs. GI - soft abdomen with diffuse generalized mild tenderness to palpation. no hepatospleenomegaly. Bowel sounds normoactive Neurological - Patient is A/O X 3 . Bilateral upper extremity strength 4/5, bilateral lower extremity strength 3/5, no facial droop, speech normal, no tremor, no sensory deficiets laboratory and microbiology Laboratory Tests 08/10/24 09:33 Test 08/10/24 09:33 Range/Units Serum Glucose 372 H 74-106 mg/dL Problem List/Assessment/Plan Problem List/Assessment/Plan acute metabolic encephalopathy likely due to sepsis History of seizure disorder - on Keppra 1000 mg b.i.d. Acute on chronic hypoxic respiratory failure COPD exacerbation Sepsis Pneumonia gram+/gram- Possible aspiration pneumonia Possible underlying congestive heart failure - ABG showed respiratory acidosis: that later improved, now in O2 2 lt no need of bipap - chest x-ray showed pulmonary venous congestion, interstitial opacities - lower lungs in the CT abdomen showed bilateral opacities more on the right - point of care ultrasound showed a right lung B lines - DuoNebs q.6 hours - methylprednisolone 40 mg q.8 hours - Zosyn q.8 hours - sputum culture pending - COVID and influenza negative DVT in left posterior tibial vein. PE ruled out VQ scan negative Enoxaparin 70 mg SC BID GFR more than 30 ?congestive heart failure Coronary artery disease s/p PCI - echo pending - EKG pending - BNP normal - chest x-ray and CT abdomen shows lower lungs opacifications suspicion of fluid overload - Plavix and atorvastatin - Lasix currently held because the patient is septic Sepsis likely due to aspiration pneumonia Lactic acidosis - IV fluids total 3 L given - on Zosyn - sputum culture pending - blood culture pending Acute intractable abdominal pain Cholelithiasis - CT abdomen pelvis shows cholelithiasis without evidence of cholecystitis, diverticulosis - right upper quadrant ultrasound pending - on pureed diet GRETCHEN on CKD possible ATN improving - IV fluids given Uncontrolled insulin dependent type 2 diabetes mellitus with hyperglycemia - insulin Lantus 22 units -lispro 8ui TID - moderate insulin sliding scale - pureed diet Goals of care discussed with the patient's son Rohit for over 25 minutes. Full code Time spent: 47 minutes Plan discussed with Dr. Fuller Plan discussed with: Patient, Other (rn) My Orders My Orders Orders - EMANUEL FIORE RESIDENT Procedure Category Date Status Time * Breaker Operator CONS 08/10/24 Transmitted Consult Abg W/ Co-Ox RT 08/10/24 Logged 07:26 Nm Vq Scan NM 08/10/24 Logged 10:52 Enoxaparin Sodium PHA 08/10/24 In Process (Lovenox) 11:30 Creatinine LAB 08/11/24 Verified 05:00 Wound Culture W/ Gs SAMANTHA 08/10/24 Uncollected 12:24 Lactic Acid W/ Reflex LAB 08/10/24 In Process Order 12:25 Date of Service: Aug 10, 2024 Billing Provider: FERNANDO FULLER MD Common Visit Codes: [id number] INP/OBS CARE(HIGH) EMANUEL FIORE RESIDENT Aug 10, 2024 13:31 FERNANDO FULLER MD Aug 14, 2024 14:41
[2024-08-10 13:47] LABS: Lactic Acid w/Reflex 6.4 mmol/L (0.4-2.0)
[2024-08-10] MEDS: methylPREDNISolone SOD SUCC 40 MG/ML VL IV SCH (14:00)
--- NOTE | 2024-08-10 15:34 | DVH ---
EXAM: NM NM VQ SCAN HISTORY: PULMONARY EMBOLISM COMPARISON: None TECHNIQUE: 4.5 mCi of xenon 133 were utilized for the perfusion portion of the study. 5 mCi of Tc99m DTPA were utilized for the ventilation portion of the study. Comparison made to chest radiograph from 08/09/2024. FINDINGS: Ventilation and perfusion images show no large mismatched defects. IMPRESSION: 1. Low probability for pulmonary embolism.
[2024-08-10] MEDS: ACETAMINOPHEN 325 MG TAB PO PRN (18:13)
--- NOTE | 2024-08-10 21:00 | DVHSR ---
APPROVED REPORT EXAM: Two-dimensional and M-mode echocardiogram with Doppler and color Doppler. Blood Pressure: 104/43 mmHg INDICATION Dyspnea RISK FACTORS Height: 5'5", Weight: 158 DIMENSIONS LVDd4.6 (3.8-5.7cm)LA (2D)3.8 (1.9-4.0cm)Aortic Root2.9 (2.0-3.7cm) LVDs3.5 (2.5-4.0cm)LA (MM) (1.9-4.0cm)Aortic Cusp Exc1.7 (1.5-2.0cm) EF (%) 50.0 (55-70%)Rt. Atrium3.0 (1.9-4.0cm)Asc. Aorta cm IVSd1.3 (0.7-1.1cm)RV (D)3.3 (1.8-2.4cm) PWd1.0 (0.7-1.1cm) Mitral Valve MitralMitral Stenosis E/A ratio0.02D MVAcm2 Aortic Valve Aortic ValveAortic Stenosis V11.02m/Ilan Mean GR.4mmHg V21.29m/Ilan Peak GR.7mmHg LVOT Diameter2.0 (1.8-2.4cm)Doppler AVA2.48cm2 Pulmonic Valve V21.17m/s Tricuspid Valve TR Velocity2.75m/s [id number] Conclusion MILD LVH AND MILD LV DIASTOLIC DYSFUNCTION LV EF IS 65% NORMAL VALVES NO EFFUSION NORMAL RV FUNCTION
[2024-08-10] MEDS: INSULIN LANTUS (GLARGINE) 1 /0.01ml (100units/ml) SC SCH (22:00)
[2024-08-10] MEDS: ATORVASTATIN 20 MG TAB PO SCH (22:43)
[2024-08-11] VITALS (18 sets, daily range): BP systolic 109–153; BP diastolic 51–66; PULSE 82–102; RESP 17–20; TEMP 97.8–98.4; O2SAT 90–100
[2024-08-11] MEDS: PANTOPRAZOLE 40 MG/10 ML VIAL INJ IV ONE (03:01)
[2024-08-11] MEDS: INSULIN LISPRO (HUMAN) 100 UNITS/ML ML SC SCH ×2 (05:29→12:45)
[2024-08-11 05:53] LABS: Hemoglobin 10.2 g/dL (13.5-17.5)
[2024-08-11 05:56] LABS: Hematocrit 31.8 % (41.0-53.0); Mean Corpuscular Hemoglobin 26.7 pg (28.0-32.0); Mean Corpuscular Hgb Conc. 32.1 g/dL (32.0-36.0); Mean Corpuscular Volume 83.1 fL (80.0-100.0); Platelet Count (auto) 186 10^3/uL (140-450); Red Blood Cells 3.83 10^6/uL (4.5-5.90); Red Cell Distribution Width 20.1 % (11.8-14.3); White Blood Cell 12.2 10^3/uL (4.4-10.8)
[2024-08-11 06:03] LABS: Basophils % (manual) 0 (0.0-2.0); Blast Cells 0; Eosinophils % (manual) 0 (0-7); Metamyelocytes % 0; Myelocytes % 0; Promyelocytes % 0; Reactive Lymphocytes 0
[2024-08-11 06:10] LABS: Alanine Aminotransferase 17 U/L (7-40); Albumin 3.7 g/dL (3.2-4.8); Alkaline Phosphatase 60 U/L (46-116); Anion Gap 11 (5-15); Aspartate Aminotransferase 27 U/L (13-40); BUN/Creatinine Ratio 19.2 (10.0-20.0); Bilirubin, Total 0.5 mg/dL (0.2-1.0); Calcium 9.4 mg/dL (8.7-10.4); Carbon Dioxide 25 mmol/L (20-31); Chloride 101 mmol/L (98-107); Potassium 4.3 mmol/L (3.5-5.1); Sodium 137 mmol/L (136-145); Total Protein 5.8 g/dL (5.7-8.2)
[2024-08-11 06:14] LABS: Blood Urea Nitrogen 28 mg/dL (9-23)
[2024-08-11 06:17] LABS: Glucose 491 mg/dL (74-106); Lactic Acid w/Reflex 2.8 mmol/L (0.4-2.0)
[2024-08-11 06:24] LABS: Anisocytosis Slight; Band Neutrophils % (manual) 17; Lymphocytes % (manual) 12 (10.0-50.0); Monocytes % (manual) 4 (0-12); Platelet Estimate Adequate
[2024-08-11] MEDS ORDERED: INSULIN LISPRO (HUMAN) 100 UNITS/ML ML SC SCH (07:00)
[2024-08-11] MEDS: SODIUM CHLORIDE 0.9% 500 ML IV ONE (10:45)
[2024-08-11] MEDS: INSULIN LANTUS (GLARGINE) 1 /0.01ml (100units/ml) SC SCH (12:45)
--- NOTE | 2024-08-11 14:54 | DVHPNRES ---
Progress Note Date Seen: Aug 11, 2024 Resident Creating Document: FAMILIA MARSH TOÑA Has the PT tested + for MRSA If YES, has PT been informed?: No Medical Necessity Reason Pt with a Central, PICC or Fol: No Subjective Review of Systems Patient seen and examined at the bedside patient is still complained of generalized body pain and shortness of bed. Objective vital signs Vital Sign Date Time Temp Pulse Resp B/P (MAP) Pulse Ox O2 Delivery O2 Flow Rate FiO2 08/11/24 13:33 101 08/11/24 13:00 98.0 18 140/56 (84) 94 98.0 08/11/24 11:26 Nasal Cannula 1.0 08/11/24 11:26 24 Total Intake and Output 08/10/24 08/10/24 08/11/24 15:00 23:00 07:00 Intake Total 300 ml 1480 ml 2050 ml Output Total 875 ml 3025 ml Balance 300 ml 605 ml -975 ml medications Current Medications Medications Dose Ordered Sig/[place] Route Start Time Stop Time Status Last Admin Dose Admin Nitroglycerin 0.4 mg Q5MINP PRN SL 08/10/24 01:15 Morphine Sulfate 2 mg Q30M PRN IV 08/10/24 01:15 Piperacillin Sod/ Tazobactam Sod 100 ml @ 25 mls/hr Q8HR IV 08/10/24 06:00 08/11/24 05:35 25 MLS/HR Levetiracetam 100 ml @ 400 mls/hr BID IV 08/10/24 10:00 08/11/24 10:28 400 MLS/HR Albuterol 2.5 mg Q6HR NEB 08/10/24 06:00 08/11/24 11:26 2.5 MG Clopidogrel Bisulfate 75 mg DAILY PO 08/10/24 10:00 08/11/24 10:28 75 MG Atorvastatin Calcium 80 mg HS PO 08/10/24 22:00 08/10/24 22:43 80 MG Pantoprazole Sodium 40 mg DAILY IV 08/10/24 06:00 08/11/24 10:28 40 MG Diagnostic Test (Pha) 1 strip ACHS 08/10/24 11:30 08/11/24 11:30 1 STRIP Insulin Human Regular use insulin lispro ... AC SC 08/10/24 11:30 08/11/24 11:30 5 UNITS Dextrose 50 ml UD PRN IV 08/10/24 07:45 Enoxaparin Sodium 70 mg Q12HR SC 08/10/24 11:30 08/11/24 10:28 70 MG Acetaminophen 325 mg Q6HP PRN PO 08/10/24 17:30 08/11/24 05:50 325 MG Insulin Glargine 26 units HS SC 08/11/24 12:45 08/11/24 12:45 26 UNITS Insulin Human Lispro 12 units TID SC 08/11/24 12:45 08/11/24 12:45 12 UNITS Methylprednisolone Sodium Succinate 40 mg DAILY IV 08/12/24 10:00 Examination Gen - no pallor, no icterus, no cyanosis, no clubbing, no LAD, no edema . Skin - Patients skin is warm and dry. HEENT - normocephalic, atraumatic, dry mucous membranes. Neck - full ROM, no LAD, JV pulsation in the lower 3rd of the SCM Pulmonary - B/L diminished breath sounds with the associated scattered wheezes, minimal basilar crackles, no stridor. cardiovascular - regular S1,S2 heard, no added sounds, no murmurs heard. peripheral pulses normal radial 2+, pedal 2+. capillary refill normal about 3 secs. GI - soft abdomen with diffuse generalized mild tenderness to palpation. no hepatospleenomegaly. Bowel sounds normoactive Neurological - Patient is A/O X 3 . Bilateral upper extremity strength 4/5, bilateral lower extremity strength 3/5, no facial droop, speech normal, no tremor, no sensory deficiets laboratory and microbiology Laboratory Tests 08/11/24 05:13 Test 08/11/24 05:13 Range/Units Serum Glucose 491 #*H 74-106 mg/dL Microbiology Date/Time Source Procedure Growth Status 08/10/24 07:27 Nose MRSA Screen - Final Complete 08/09/24 20:38 Blood Blood Culture - Preliminary NO GROWTH AFTER 24 HOURS OF INCUBATION. Resulted Labs and/or images reviewed: Labs reviewed by me, Image(s) reviewed by me Problem List/Assessment/Plan Problem List/Assessment/Plan acute metabolic encephalopathy likely due to sepsis History of seizure disorder - on Keppra 1000 mg b.i.d. Acute on chronic hypoxic respiratory failure COPD exacerbation Sepsis Pneumonia gram+/gram- Possible aspiration pneumonia Possible underlying congestive heart failure - ABG showed respiratory acidosis: that later improved, now in O2 2 lt no need of bipap - chest x-ray showed pulmonary venous congestion, interstitial opacities - lower lungs in the CT abdomen showed bilateral opacities more on the right - point of care ultrasound showed a right lung B lines - DuoNebs q.6 hours - methylprednisolone 40 mg q.8 hours - Zosyn q.8 hours - sputum culture pending - COVID and influenza negative DVT in left posterior tibial vein. PE ruled out VQ scan negative Enoxaparin 70 mg SC BID GFR more than 30 ?congestive heart failure Coronary artery disease s/p PCI - echo pending - EKG pending - BNP normal - chest x-ray and CT abdomen shows lower lungs opacifications suspicion of fluid overload - Plavix and atorvastatin - Lasix currently held because the patient is septic Sepsis likely due to aspiration pneumonia Lactic acidosis - IV fluids total 3 L given - on Zosyn - sputum culture pending - blood culture pending Acute intractable abdominal pain Cholelithiasis - CT abdomen pelvis shows cholelithiasis without evidence of cholecystitis, diverticulosis - right upper quadrant ultrasound pending - on pureed diet GRETCHEN on CKD possible ATN improving - IV fluids given 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 Plan discussed with Dr. 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 Encourage optimal PO intake 2) Initiate vitamin C @ 500 mg bid and zinc sulfate @ 220 mg qd for 7-10 days 3) Refer to outpatient RD/CD[facility] for diabetes education 4) Follow-up with cardiology, pulmonology, and gastroenterology 5) Continue to monitor I&O, labs, and skin integrity Expected Outcomes/Goals: 1) appetite and labs to improve 2) wounds to improve 3) f/u in 3-5 days Date of Service: Aug 11, 2024 Billing Provider: ZOEY DURAND MD Common Visit Codes: [id number] INP/OBS CARE(HIGH) FAMILIA MARSH RESDIENT Aug 11, 2024 14:54 ZOEY DURAND MD Aug 13, 2024 21:44
[2024-08-11] MEDS ORDERED: INSULIN LANTUS (GLARGINE) 1 /0.01ml (100units/ml) SC SCH (22:00)
[2024-08-12] VITALS (18 sets, daily range): BP systolic 108–153; BP diastolic 52–86; PULSE 71–98; RESP 17–24; TEMP 97.3–98.2; O2SAT 91–100
[2024-08-12 06:10] LABS: Basophils # (auto) 0 10 ^3/uL (0-0.2); Basophils % (auto) 0.1 % (0.0-2.0); Eosinophils # (auto) 0 10 ^3/uL (0-0.8); Hemoglobin 9.9 g/dL (13.5-17.5); Lymphocytes # (auto) 0.9 10 ^3/uL (0.4-5.4); Lymphocytes % (auto) 7.4 % (10.0-50.0); Monocytes # (auto) 0.7 10 ^3/uL (0-1.3)
[2024-08-12 06:13] LABS: Alanine Aminotransferase 19 U/L (7-40); Albumin 3.4 g/dL (3.2-4.8); Alkaline Phosphatase 55 U/L (46-116); Anion Gap 8 (5-15); BUN/Creatinine Ratio 20.2 (10.0-20.0); Blood Urea Nitrogen 19 mg/dL (9-23); Calcium 8.8 mg/dL (8.7-10.4); Carbon Dioxide 30 mmol/L (20-31); Chloride 106 mmol/L (98-107); Hematocrit 29.6 % (41.0-53.0); Mean Corpuscular Hgb Conc. 33.2 g/dL (32.0-36.0); Mean Corpuscular Volume 81.2 fL (80.0-100.0); Monocytes % (auto) 5.7 % (0.0-12.0); Neutrophils # (auto) 10.5 10 ^3/uL (1.6-8.6); Neutrophils % (auto) 86.8 % (37.0-80.0); Platelet Count (auto) 194 10^3/uL (140-450); Red Blood Cells 3.65 10^6/uL (4.5-5.90); Red Cell Distribution Width 19.7 % (11.8-14.3); Sodium 144 mmol/L (136-145); White Blood Cell 12.1 10^3/uL (4.4-10.8)
[2024-08-12 06:14] LABS: Bilirubin, Total 0.3 mg/dL (0.2-1.0)
[2024-08-12 06:28] LABS: Potassium 3.1 mmol/L (3.5-5.1)
[2024-08-12 06:29] LABS: Glucose 125 mg/dL (74-106); Total Protein 5.5 g/dL (5.7-8.2)
[2024-08-12 06:44] LABS: Aspartate Aminotransferase 46 U/L (13-40)
[2024-08-12 07:30] LABS: Anisocytosis Moderate; Platelet Estimate Adequate
[2024-08-12] MEDS: levETIRAcetam 500 MG TAB PO SCH (09:00)
[2024-08-12] MEDS: methylPREDNISolone SOD SUCC 40 MG/ML VL IV SCH (09:00)
[2024-08-12] MEDS: POTASSIUM CHLORIDE 40 MEQ, LIDOCAINE 1% (LOCAL ANESTH.) 4 ML in SODIUM CHL 0.9% 250 ML IV ONE (09:03)
--- NOTE | 2024-08-12 11:52 | DVHDSRES ---
Discharge Summary Date of Admission Resident Creating Document: EMANUEL FIORE RESIDENT Aug 10, 2024 at 01:02 Date of Discharge: Aug 12, 2024 Admitting Diagnosis acute respiratory failure COPD exacerbation DVT Labs/Diagnostic Data: Laboratory Results Test 08/12/24 11:32 08/12/24 05:05 08/11/24 07:56 08/11/24 05:13 POC Glucose 255 mg/dl (70-106) White Blood Count 12.1 10^3/uL (4.4-10.8) Red Blood Count 3.65 10^6/uL (4.5-5.90) Hemoglobin 9.9 g/dL (13.5-17.5) Hematocrit 29.6 % (41.0-53.0) Mean Corpuscular Volume 81.2 fL (80.0-100.0) Mean Corpuscular Hemoglobin 27.0 pg (28.0-32.0) Mean Corpuscular Hemoglobin Concent 33.2 g/dL (32.0-36.0) Red Cell Distribution Width 19.7 % (11.8-14.3) Platelet Count 194 10^3/uL (140-450) Mean Platelet Volume 8.7 fL (6.9-10.8) Neutrophils (%) (Auto) 86.8 % (37.0-80.0) Lymphocytes (%) (Auto) 7.4 % (10.0-50.0) Monocytes (%) (Auto) 5.7 % (0.0-12.0) Eosinophils (%) (Auto) 0.0 % (0.0-7.0) Basophils (%) (Auto) 0.1 % (0.0-2.0) Neutrophils # (Auto) 10.5 10 ^3/uL (1.6-8.6) Lymphocytes # (Auto) 0.9 10 ^3/uL (0.4-5.4) Monocytes # (Auto) 0.7 10 ^3/uL (0-1.3) Eosinophils # (Auto) 0 10 ^3/uL (0-0.8) Basophils # (Auto) 0 10 ^3/uL (0-0.2) Nucleated Red Blood Cells 0.0 % Platelet Estimate Adequate Anisocytosis (manual) Moderate Sodium Level 144 mmol/L (136-145) Potassium Level 3.1 mmol/L (3.5-5.1) Chloride Level 106 mmol/L (98-107) Carbon Dioxide Level 30 mmol/L (20-31) Anion Gap 8 (5-15) Blood Urea Nitrogen 19 mg/dL (9-23) Creatinine 0.94 mg/dL (0.700-1.30) Glomerular Filtration Rate Calc 85 mL/min (>90) BUN/Creatinine Ratio 20.2 (10.0-20.0) Serum Glucose 125 mg/dL (74-106) Calcium Level 8.8 mg/dL (8.7-10.4) Total Bilirubin 0.3 mg/dL (0.2-1.0) Aspartate Amino Transferase (AST) 46 U/L (13-40) Alanine Aminotransferase (ALT) 19 U/L (7-40) Alkaline Phosphatase 55 U/L (46-116) Total Protein 5.5 g/dL (5.7-8.2) Albumin 3.4 g/dL (3.2-4.8) Lactic Acid Level 2.9 mmol/L (0.4-2.0) Differential Total Cells Counted 100.0 (100) Neutrophils % (Manual) 67 (37.0-80.0) Band Neutrophils % (Manual) 17 Lymphocytes % (Manual) 12 (10.0-50.0) Monocytes % (Manual) 4 (0-12) Eosinophils % (Manual) 0 (0-7) Basophils % (Manual) 0 (0.0-2.0) Metamyelocytes % (manual) 0 Myelocytes % (Manual) 0 Promyelocytes % (Manual) 0 Blast Cells % (Manual) 0 Reactive Lymphocytes 0 Test 08/10/24 09:36 08/10/24 09:33 08/10/24 06:52 08/10/24 01:50 Blood Gas Specimen Type Arterial Blood Gas Sample Site Right radial Blood Gas Patient Temperature 37.0 Arterial Blood Date Drawn [id number] Arterial Blood pH 7.377 (7.350-7.450) Arterial Blood Partial Pressure CO2 39.8 mmHg (35.0-48.0) Arterial Blood Partial Pressure O2 64.0 mmHg (83.0-108.0) Arterial Blood HCO3 22.9 mmol/L (21.0-28.0) Arterial Blood Oxygen Saturation 91.1 % (94.0-98.0) Arterial Blood Base Excess -2.1 mmol/L (-2.0-3.0) Arterial Blood Oxyhemoglobin 90.1 % (94.0-98.0) Arterial Blood Carboxyhemoglobin 0.9 % (0.5-1.5) Arterial Blood Methemoglobin 0.2 % (0.0-1.5) [place] Test Yes Blood Gas Total Hemoglobin 10.80 g/dL (13.5-17.5) Blood Gas Liter Flow 1.00 Blood Gas Modality Nasal cannula FiO2 % 24.0 D-Dimer, Quantitative 1.86 mg/L FEU (0.0-0.49) Urine Creatinine 87.22 mg/dL (30.0-125.0) Urine Protein/Creatinine Ratio 0.43 Urine Sodium < 10 mmol/L (40-220) Urine Total Protein 37.3 mg/dL (1-14) Influenza Type A Antigen Negative (Negative) Influenza Type B Antigen Negative (Negative) SARS-CoV-2 Antigen (Rapid) Negative (NEGATIVE) Test 08/10/24 01:33 08/09/24 23:20 08/09/24 18:43 08/09/24 00:00 Hemoglobin A1c 9.3 % A1C (<5.7) Troponin I High Sensitivity 44 ng/L (</=54) B-Type Natriuretic Peptide 55.27 pg/mL (0-100) Lipase 28 U/L (12-53) Urine Color Yellow (Yellow) Urine Clarity Turbid (Clear) Urine pH 5.0 (5.0-9.0) Urine Specific [place] 1.019 (1.001-1.035) Urine Protein Trace (Negative) Urine Ketones Negative (Negative) Urine Blood Negative /uL (Negative) Urine Nitrite Negative (Negative) Urine Bilirubin Negative (Negative) Urine Urobilinogen Normal mg/dL (Negative) Urine Leukocyte Esterase Negative /uL (Negative) Urine RBC 1 /hpf (0 - 3) Urine Microscopic WBC 2 /HPF (0-3) Urine Squamous Epithelial Cells Few /hpf (<5) Urine Bacteria Few /hpf (None Seen) Urine Glucose 1+ mg/dL (Normal) Other Laboratory Tests 08/12/24 05:05 Brief Hx & Hospital Course: A 73-year-old male with PMHx of insulin-dependent type 2 diabetes mellitus, hypertension, COPD, coronary artery disease s/p PCI in 2023, hyperlipidemia, seizure disorder, and prior episodes of syncope was transferred from [facility] for altered mental status and possible aspiration pneumonia. Patient was noted to be somnolent, disoriented, with vomiting, yellow content, and poor oral intake. On admission, patient was febrile with acute encephalopathy, tachypnea, and required supplemental oxygen. Workup revealed acute on chronic hypoxic respiratory failure due to COPD exacerbation, aspiration pneumonia, and possible underlying CHF (B-lines on POCUS, bilateral infiltrates on imaging). Patient also had signs of sepsis (elevated lactate), GRETCHEN on CKD, and acute metabolic encephalopathy likely secondary to sepsis. Treatment included IV fluids, antibiotics (Zosyn), steroids (Solu-Medrol), oxygen support, and insulin titration. No seizures were reported during hospitalization, and Keppra was continued. DVT was found in US Patient improved clinically, with resolution of acute hypoxia, down-titration of oxygen from 2L to 1L/min, improvement in mentation, and stabilization of renal function. Anticoagulation for DVT (left posterior tibial vein) was continued with enoxaparin. Medications on Discharge: Keppra 1000 mg BID, Lantus 26 units QHS, Lispro 12 units TID, sliding scale insulin, clopidogrel, atorvastatin, losartan, amiodarone, enoxaparin 70 mg BID SC, home medications resumed. Disposition: Stable for transfer to [facility]. Discharge Needs: Home oxygen at 1L/min via nasal cannula Continue anticoagulation with enoxaparin 70 mg SC BID Follow up with PCP and cardiology Continue aspiration precautions and diabetic diet Operations or Procedures EXAM: NM NM VQ SCAN HISTORY: PULMONARY EMBOLISM COMPARISON: None TECHNIQUE: 4.5 mCi of xenon 133 were utilized for the perfusion portion of the study. 5 mCi of Tc99m DTPA were utilized for the ventilation portion of the study. Comparison made to chest radiograph from 08/09/2024. FINDINGS: Ventilation and perfusion images show no large mismatched defects. IMPRESSION: 1. Low probability for pulmonary embolism. US BiLat Lower DVT HISTORY: Rule out DVT COMPARISON: None TECHNIQUE: Duplex doppler evaluation of the deep venous system of the lower extremity from the common femoral veins, superficial femoral vein, great saphenous vein, deep femoral vein, popliteal vein, and calf veins, including color doppler and spectral/pulsed waveform analysis, was performed. FINDINGS: Right: - Common femoral vein: Compressible - Deep femoral vein: Compressible - Femoral vein: Compressible - Popliteal vein: Compressible - Posterior tibial vein: Waveforms present - Other: Nothing Left: - Common femoral vein: Compressible - Deep femoral vein: Compressible - Femoral vein: Compressible - Popliteal vein: Compressible - Posterior tibial vein: No flow. - Other: Nothing IMPRESSION: Small DVT in the left posterior tibial vein. Otherwise no right or left lower extremity deep venous thrombosis. Exam: CT CT AB PEL WO CON-NO ORAL OR IV History: abd pain n/v Comparison Study: None TECHNIQUE: Multidetector CT of the abdomen and pelvis was performed from lung bases to pubic symphysis. Imaging was performed without IV contrast. Axial, coronal, and sagittal multiplanar reformats were obtained from the axial data set by the technologist. RADIATION DOSE: DLP 687.99 mGy.cm; CTDI vol 13.03 mGy. Findings: There is motion artifact. Lungs: Numerous scattered clustered nodular opacities. Heart: No cardiomegaly or pericardial effusion. Severe coronary atherosclerosis versus stents. Liver: Unremarkable. Gallbladder: Cholelithiasis without evidence of acute cholecystitis. Spleen: Unremarkable Pancreas: Atrophic pancreas. Adrenals: Unremarkable Kidneys: Unremarkable GI tract: Diverticulosis without evidence of acute diverticulitis. : Unremarkable. Vasculature: Moderate aortoiliac atherosclerosis. Lymphadenopathy: Absent Peritoneum: No ascites Musculoskeletal: Mild multilevel degenerative changes of the thoracolumbar spine. Soft tissues: Unremarkable Impression: 1. No acute abdominopelvic abnormalities. 2. Cholelithiasis without evidence of acute cholecystitis. 3. Diverticulosis without evidence acute diverticulitis. Condition at Discharge: Stable Final Diagnosis/Problems List acute metabolic encephalopathy likely due to sepsis History of seizure disorder Acute on chronic hypoxic respiratory failure COPD exacerbation Sepsis Pneumonia gram+/gram- Possible aspiration pneumonia Possible underlying congestive heart failure DVT in left posterior tibial vein. PE ruled out ?congestive heart failure Coronary artery disease s/p PCI Sepsis likely due to aspiration pneumonia Lactic acidosis Acute intractable abdominal pain Cholelithiasis GRETCHEN on CKD possible ATN improving Uncontrolled insulin dependent type 2 diabetes mellitus with hyperglycemia Discharge Disposition: Acute Care Facility Discharge Instruct/Medications Diet: Consistent carbohydrate, Cardiac 2g Na,low cholest Activity: Bed rest Follow Up/Referral: per addison Medications: per addison Discharge Statement: "Patient was advised to return to the ER or call 911 if any headaches, dizziness, shortness of breath, chest pain, abdominal pain, bleeding, fevers, or worsening of medical condition. Patient was counseled about treatment plan, medications, possible side effects, patientverbalized understanding. All questions were answered to the best of my ability. This discharge took greater then 30 minutes in planning, reviewing documentation, counseling the patient, and discussing with other team members." ASSESSMENT ASSESSMENT Assessment acute respiratory failure COPD exacerbation DVT Date of Service: Aug 12, 2024 Billing Provider: ZOEY OAKES MD Common Visit Codes: 81824-CCT/OBS DISCH DAY >30min EMANUEL FIORE RESIDENT Aug 12, 2024 11:52 ZOEY OAKES MD Aug 13, 2024 21:45
[2024-08-13] VITALS (17 sets, daily range): BP systolic 128–148; BP diastolic 60–72; PULSE 72–96; RESP 17–24; TEMP 97.2–98.3; O2SAT 90–100
[2024-08-13 05:54] LABS: Basophils # (auto) 0 10 ^3/uL (0-0.2); Basophils % (auto) 0.1 % (0.0-2.0); Eosinophils # (auto) 0 10 ^3/uL (0-0.8); Eosinophils % (auto) 0.1 % (0.0-7.0); Mean Corpuscular Hgb Conc. 32.8 g/dL (32.0-36.0); Monocytes # (auto) 0.7 10 ^3/uL (0-1.3); Neutrophils # (auto) 10.2 10 ^3/uL (1.6-8.6)
[2024-08-13 05:55] LABS: Hematocrit 28.6 % (41.0-53.0); Hemoglobin 9.4 g/dL (13.5-17.5); Lymphocytes % (auto) 8.6 % (10.0-50.0); Mean Corpuscular Hemoglobin 26.6 pg (28.0-32.0); Mean Corpuscular Volume 81.3 fL (80.0-100.0); Monocytes % (auto) 6.2 % (0.0-12.0); Platelet Count (auto) 175 10^3/uL (140-450); Red Blood Cells 3.52 10^6/uL (4.5-5.90); Red Cell Distribution Width 20.1 % (11.8-14.3)
[2024-08-13 06:06] LABS: Alanine Aminotransferase 29 U/L (7-40); Albumin 3.4 g/dL (3.2-4.8); Alkaline Phosphatase 57 U/L (46-116); Anion Gap 9 (5-15); Aspartate Aminotransferase 38 U/L (13-40); BUN/Creatinine Ratio 16.7 (10.0-20.0); Blood Urea Nitrogen 15 mg/dL (9-23); Calcium 9.2 mg/dL (8.7-10.4); Carbon Dioxide 29 mmol/L (20-31); Potassium 3.5 mmol/L (3.5-5.1)
[2024-08-13 06:13] LABS: Bilirubin, Total 0.3 mg/dL (0.2-1.0); Chloride 108 mmol/L (98-107); Glucose 157 mg/dL (74-106); Sodium 146 mmol/L (136-145); Total Protein 5.4 g/dL (5.7-8.2)
[2024-08-13 07:44] LABS: Base Excess 5.4 mmol/L (-2.0-3.0)
--- NOTE | 2024-08-13 10:24 | ECG ---
[facility] Test Date: 2024-08-10 Test Time: 11:03:33 Pat Name: MARY JANE BRITT Department: Room: 0286T A Gender: M Uniform Maker: ryan : 1950 Requested By: EMANUEL REAGAN Order Number: [id number] Reading MD: Josh Maldonado Measurements Intervals [place] Rate: 90 P: 0 ME: 0 QRS: 72 QRSD: 96 T: 59 QT: 369 QTc: 452 Interpretive Statements Normal sinus rhythm Minimal ST elevation, anterior leads Electronically Signed On 08-15-2024 20:13:13 PDT by Josh Maldonado Please click the below link to view image of tracing.
[2024-08-13] MEDS: ONDANSETRON HCL 4 MG/2 ML VIAL IV PRN (13:48)
--- NOTE | 2024-08-13 16:39 | DVHPNRES ---
Progress Note Date Seen: Aug 13, 2024 Resident Creating Document: EMANUEL FIORE RESIDENT Has the PT tested + for MRSA If YES, has PT been informed?: No Medical Necessity Reason Pt with a Central, PICC or Fol: No Subjective Review of Systems Patient is a 73-year-old male with a past medical history of type 2 diabetes mellitus, hypertension, COPD, coronary artery disease status post PCI in 2023 according to his son, hyperlipidemia, seizure disorder was brought to the ER from [place] [facility] where he was for physical therapy rehabilitation had apparently had an episode of a fall but denied loss of consciousness and no seizure-like activity was witnessed. Patient also had episode of vomiting 3 times which was nonbilious and nonbloody. 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 Patient's son Rohit Euceda was called to confirmed that the patient was in [place] [facility] and he got a call that he was being transferred to [facility] apparently for abdominal pain and reports that patient was there for physical therapy rehab. He also foods patient having recurrent vomitings but does not know the reason. Past medical history: Insulin dependent type 2 diabetes mellitus, hypertension, COPD, coronary artery disease status post PCI in 2023 according to his son, hyperlipidemia, seizure disorder, Past surgical history could not be obtained Social history: Lives with his , as per the son patient does not smoke drink or do any drugs Home medications: Insulin Humulin, Keppra 1000 mg b.i.d., losartan 100 mg, atorvastatin 80 mg, clopidogrel, ?Amiodarone 08/10/2024: talking to the at bedside, patient had an episode of near syncope, w/o fall or LOC, patient is being altered since 2 days ago, vomiting yellow content, patient smoked for many years and sometimes hide cigarettes from his , a month ago he was in [facility] due to high BP and uncontrolled diabetes and later transferred to [facility] for PT rehab. DVT was found in US and PE was ruled out in VQ scan 08/11/2024: insulin and medrol IV were adjusted 08/12/2024: patient was stable for transfer but not for DC, patient needs home O2 08/13/2024: patient will stay in [facility] until DC, ABG showed po2 52, home O2 ordered was sent for auth, apixaban was added, enoxaparin was DC, case explained to the family, patient will return home Objective vital signs Vital Sign Date Time Temp Pulse Resp B/P (MAP) Pulse Ox O2 Delivery O2 Flow Rate FiO2 08/13/24 13:14 97.3 74 19 148/71 (96) 95 97.3 08/13/24 11:23 Nasal Cannula 3.0 08/13/24 11:23 32 Total Intake and Output 08/12/24 08/12/24 08/13/24 15:00 23:00 07:00 Intake Total 145 ml 800 ml Output Total 700 ml 1000 ml Balance -555 ml -200 ml medications Current Medications Medications Dose Ordered Sig/[place] Route Start Time Stop Time Status Last Admin Dose Admin Nitroglycerin 0.4 mg Q5MINP PRN SL 08/10/24 01:15 Morphine Sulfate 2 mg Q30M PRN IV 08/10/24 01:15 Piperacillin Sod/ Tazobactam Sod 100 ml @ 25 mls/hr Q8HR IV 08/10/24 06:00 08/13/24 13:46 25 MLS/HR Albuterol 2.5 mg Q6HR NEB 08/10/24 06:00 08/13/24 11:23 2.5 MG Clopidogrel Bisulfate 75 mg DAILY PO 08/10/24 10:00 08/13/24 09:31 75 MG Atorvastatin Calcium 80 mg HS PO 08/10/24 22:00 08/12/24 21:26 80 MG Pantoprazole Sodium 40 mg DAILY IV 08/10/24 06:00 08/13/24 09:31 40 MG Diagnostic Test (Pha) 1 strip ACHS 08/10/24 11:30 08/13/24 11:30 1 STRIP Insulin Human Regular use insulin lispro ... AC SC 08/10/24 11:30 08/13/24 11:54 1 UNITS Dextrose 50 ml UD PRN IV 08/10/24 07:45 Acetaminophen 325 mg Q6HP PRN PO 08/10/24 17:30 08/13/24 09:30 325 MG Insulin Glargine 26 units HS SC 08/11/24 12:45 08/12/24 22:04 26 UNITS Insulin Human Lispro 12 units TID SC 08/11/24 12:45 08/13/24 13:45 12 UNITS Methylprednisolone Sodium Succinate 40 mg DAILY IV 08/12/24 10:00 08/13/24 09:30 40 MG Levetiracetam 1,500 mg BID PO 08/12/24 10:00 08/13/24 09:31 1,500 MG Ondansetron HCl 4 mg Q8HPRN PRN IV 08/12/24 23:15 08/13/24 13:48 4 MG Ibuprofen 400 mg Q8HP PRN PO 08/13/24 16:30 Apixaban 10 mg BID PO 08/13/24 22:00 08/20/24 21:59 Examination Gen - no pallor, no icterus, no cyanosis, no clubbing, no LAD, no edema . Skin - Patients skin is warm and dry. HEENT - normocephalic, atraumatic, dry mucous membranes. Neck - full ROM, no LAD, JV pulsation in the lower 3rd of the SCM Pulmonary - B/L diminished breath sounds with the associated scattered wheezes, minimal basilar crackles, no stridor. cardiovascular - regular S1,S2 heard, no added sounds, no murmurs heard. peripheral pulses normal radial 2+, pedal 2+. capillary refill normal about 3 secs. GI - soft abdomen with diffuse generalized mild tenderness to palpation. no hepatospleenomegaly. Bowel sounds normoactive Neurological - Patient is A/O X 3 . Bilateral upper extremity strength 4/5, bilateral lower extremity strength 3/5, no facial droop, speech normal, no tremor, no sensory deficiets laboratory and microbiology Laboratory Tests 08/13/24 05:20 Test 08/13/24 05:20 Range/Units Serum Glucose 157 H 74-106 mg/dL Microbiology Date/Time Source Procedure Growth Status 08/10/24 07:27 Nose MRSA Screen - Final Complete 08/09/24 20:38 Blood Blood Culture - Preliminary NO GROWTH AFTER 72 HOURS OF INCUBATION. Resulted Problem List/Assessment/Plan Problem List/Assessment/Plan acute metabolic encephalopathy likely due to sepsis History of seizure disorder - on Keppra 1000 mg b.i.d. Acute on chronic hypoxic respiratory failure COPD exacerbation Sepsis Pneumonia gram+/gram- Possible aspiration pneumonia Possible underlying congestive heart failure - ABG showed respiratory acidosis: that later improved, now in O2 2 lt no need of bipap - chest x-ray showed pulmonary venous congestion, interstitial opacities - lower lungs in the CT abdomen showed bilateral opacities more on the right - point of care ultrasound showed a right lung B lines - Breathing treatment q8h - prednisone PO - Zosyn q.8 hours - sputum culture pending - COVID and influenza negative DVT in left posterior tibial vein. PE ruled out VQ scan negative Apixaban 10 mg PO bid ?congestive heart failure Coronary artery disease s/p PCI - echo MILD LVH AND MILD LV DIASTOLIC DYSFUNCTION LV EF IS 65% - BNP normal - chest x-ray and CT abdomen shows lower lungs opacifications suspicion of fluid overload - Plavix and atorvastatin Sepsis likely due to aspiration pneumonia Lactic acidosis - IV fluids total 3 L given - on Zosyn - blood culture NEG Acute intractable abdominal pain Cholelithiasis - CT abdomen pelvis shows cholelithiasis without evidence of cholecystitis, diverticulosis - right upper quadrant ultrasound pending - on pureed diet GRETCHEN on CKD possible due to VMN improving - IV fluids given Uncontrolled insulin dependent type 2 diabetes mellitus with hyperglycemia - insulin Lantus 26 units -lispro 12ui TID - moderate insulin sliding scale - pureed diet Goals of care discussed with the patient's son Rohit for over 25 minutes. Full code Time spent: 47 minutes Plan discussed with Dr. Fuller Plan discussed with: Patient, Other My Orders My Orders Orders - EMANUEL FIORE RESIDENT Procedure Category Date Status Time Imaging Transfer ORDERS 08/12/24 Transmitted Request 18:11 Abg W/ Co-Ox RT 08/13/24 Logged 07:13 * Jai Alai Player CONS 08/13/24 Transmitted Consult Ibuprofen Tablet PHA 08/13/24 In Process (Motrin Tablet) 16:30 Apixaban (Eliquis) PHA 08/13/24 In Process 22:00 Dietary Evaluation Review Recommendations by RD: Dietary education by RD, Protein Supplementation Comments: 1) Add NCS restriction to diet 2) Initiate Glucerna bid. Encourage optimal PO intake 2) Initiate vitamin C @ 500 mg bid and zinc sulfate @ 220 mg qd for 7-10 days 3) Refer to outpatient RD/CDCES for diabetes education 4) Follow-up with cardiology, pulmonology, and gastroenterology 5) Continue to monitor I&O, labs, and skin integrity Expected Outcomes/Goals: 1) appetite and labs to improve 2) wounds to improve 3) f/u in 3-5 days Date of Service: Aug 13, 2024 Billing Provider: FERNANDO FULLER MD Common Visit Codes: [id number] INP/OBS CARE(HIGH) EMANUEL FIORE RESIDENT Aug 13, 2024 16:39 FERNANDO FULLER MD Aug 14, 2024 15:35
[2024-08-13] MEDS: IBUPROFEN 400 MG TAB PO PRN (16:41)
[2024-08-13] MEDS: IPRATROPIUM BROM 0.5 MG/2.5ML INH SOL NEB SCH (22:27)
[2024-08-13] MEDS: APIXABAN 5 MG TAB PO SCH (22:27)
[2024-08-13] MEDS: ALBUTEROL SULF 2.5 MG/0.5ML(0.5%) NEB SOLN NEB SCH (22:27)
[2024-08-14] VITALS (16 sets, daily range): BP systolic 119–174; BP diastolic 60–81; PULSE 64–87; RESP 16–22; TEMP 96.7–98.6; O2SAT 91–100
[2024-08-14 06:23] LABS: Basophils # (auto) 0 10 ^3/uL (0-0.2); Basophils % (auto) 0.1 % (0.0-2.0); Eosinophils # (auto) 0 10 ^3/uL (0-0.8); Eosinophils % (auto) 0.4 % (0.0-7.0); Hematocrit 29.7 % (41.0-53.0); Hemoglobin 9.8 g/dL (13.5-17.5); Lymphocytes # (auto) 1.2 10 ^3/uL (0.4-5.4); Lymphocytes % (auto) 15.4 % (10.0-50.0); Mean Corpuscular Hemoglobin 27.1 pg (28.0-32.0); Monocytes # (auto) 0.6 10 ^3/uL (0-1.3); Monocytes % (auto) 7.7 % (0.0-12.0); Neutrophils # (auto) 5.8 10 ^3/uL (1.6-8.6); Neutrophils % (auto) 76.4 % (37.0-80.0); Platelet Count (auto) 200 10^3/uL (140-450); Red Blood Cells 3.62 10^6/uL (4.5-5.90); White Blood Cell 7.5 10^3/uL (4.4-10.8)
[2024-08-14] MEDS ORDERED: ASPI-325 PO (08:35)
[2024-08-14] MEDS ORDERED: CLOP75TA70 PO (08:35)
[2024-08-14] MEDS ORDERED: ACET-1882 PO (08:35)
[2024-08-14] MEDS ORDERED: INSU100I4 SC (08:35)
[2024-08-14] MEDS ORDERED: APIX5TAB PO ×2 (08:35)
[2024-08-14] MEDS ORDERED: INSU1INJ19 SC (08:35)
[2024-08-14] MEDS ORDERED: ATOR40TA52 PO (08:35)
[2024-08-14] MEDS ORDERED: ALBUAER3 IN (08:35)
[2024-08-14] MEDS: predniSONE 20 MG TAB PO SCH (09:54)
--- NOTE | 2024-08-14 15:33 | DVHPNRES ---
Progress Note Date Seen: Aug 14, 2024 Resident Creating Document: EMANUEL FIORE RESIDENT Has the PT tested + for MRSA If YES, has PT been informed?: No Medical Necessity Reason Pt with a Central, PICC or Fol: No Subjective Review of Systems Patient is a 73-year-old male with a past medical history of type 2 diabetes mellitus, hypertension, COPD, coronary artery disease status post PCI in 2023 according to his son, hyperlipidemia, seizure disorder was brought to the ER from [place] [facility] where he was for physical therapy rehabilitation had apparently had an episode of a fall but denied loss of consciousness and no seizure-like activity was witnessed. Patient also had episode of vomiting 3 times which was nonbilious and nonbloody. 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 Patient's son Rohit Euceda was called to confirmed that the patient was in [place] [facility] and he got a call that he was being transferred to [facility] apparently for abdominal pain and reports that patient was there for physical therapy rehab. He also foods patient having recurrent vomitings but does not know the reason. Past medical history: Insulin dependent type 2 diabetes mellitus, hypertension, COPD, coronary artery disease status post PCI in 2023 according to his son, hyperlipidemia, seizure disorder, Past surgical history could not be obtained Social history: Lives with his , as per the son patient does not smoke drink or do any drugs Home medications: Insulin Humulin, Keppra 1000 mg b.i.d., losartan 100 mg, atorvastatin 80 mg, clopidogrel, ?Amiodarone 08/10/2024: talking to the at bedside, patient had an episode of near syncope, w/o fall or LOC, patient is being altered since 2 days ago, vomiting yellow content, patient smoked for many years and sometimes hide cigarettes from his , a month ago he was in [facility] due to high BP and uncontrolled diabetes and later transferred to [facility] for PT rehab. DVT was found in US and PE was ruled out in VQ scan 08/11/2024: insulin and medrol IV were adjusted 08/12/2024: patient was stable for transfer but not for DC, patient needs home O2 08/13/2024: patient will stay in [facility] until DC, ABG showed po2 52, home O2 ordered was sent for auth, apixaban was added, enoxaparin was DC, case explained to the family, patient will return home 08/14/2024: pending home o2 for DC Home Objective vital signs Vital Sign Date Time Temp Pulse Resp B/P (MAP) Pulse Ox O2 Delivery O2 Flow Rate FiO2 08/14/24 14:34 81 18 100 08/14/24 14:26 Nasal Cannula* 3 32 08/14/24 12:51 97.4 140/70 (93) 97.4 Total Intake and Output 08/13/24 08/13/24 08/14/24 15:00 23:00 07:00 Intake Total 25 ml 475 ml 0 ml Output Total 500 ml 400 ml Balance 25 ml -25 ml -400 ml medications Current Medications Medications Dose Ordered Sig/[place] Route Start Time Stop Time Status Last Admin Dose Admin Nitroglycerin 0.4 mg Q5MINP PRN SL 08/10/24 01:15 Morphine Sulfate 2 mg Q30M PRN IV 08/10/24 01:15 Piperacillin Sod/ Tazobactam Sod 100 ml @ 25 mls/hr Q8HR IV 08/10/24 06:00 08/14/24 14:03 25 MLS/HR Clopidogrel Bisulfate 75 mg DAILY PO 08/10/24 10:00 08/14/24 09:54 75 MG Atorvastatin Calcium 80 mg HS PO 08/10/24 22:00 08/13/24 22:27 80 MG Pantoprazole Sodium 40 mg DAILY IV 08/10/24 06:00 08/14/24 09:54 40 MG Diagnostic Test (Pha) 1 strip ACHS 08/10/24 11:30 08/14/24 11:30 1 STRIP Insulin Human Regular use insulin lispro ... AC SC 08/10/24 11:30 08/13/24 17:27 3 UNITS Dextrose 50 ml UD PRN IV 08/10/24 07:45 Acetaminophen 325 mg Q6HP PRN PO 08/10/24 17:30 08/13/24 09:30 325 MG Insulin Glargine 26 units HS SC 08/11/24 12:45 08/13/24 22:32 26 UNITS Insulin Human Lispro 12 units TID SC 08/11/24 12:45 08/14/24 14:34 12 UNITS Levetiracetam 1,500 mg BID PO 08/12/24 10:00 08/14/24 09:54 1,500 MG Ondansetron HCl 4 mg Q8HPRN PRN IV 08/12/24 23:15 08/13/24 17:24 4 MG Ibuprofen 400 mg Q8HP PRN PO 08/13/24 16:30 08/13/24 16:41 400 MG Apixaban 10 mg BID PO 08/13/24 22:00 08/20/24 21:59 08/14/24 09:54 10 MG Prednisone 40 mg DAILY PO 08/14/24 10:00 08/14/24 09:54 40 MG Albuterol 2.5 mg Q8HR NEB 08/13/24 22:00 08/14/24 14:26 2.5 MG Ipratropium [place] 0.5 mg Q8HR NEB 08/13/24 22:00 08/14/24 14:26 0.5 MG Examination Gen - no pallor, no icterus, no cyanosis, no clubbing, no LAD, no edema . Skin - Patients skin is warm and dry. HEENT - normocephalic, atraumatic, dry mucous membranes. Neck - full ROM, no LAD, JV pulsation in the lower 3rd of the SCM Pulmonary - B/L diminished breath sounds with the associated scattered wheezes, minimal basilar crackles, no stridor. cardiovascular - regular S1,S2 heard, no added sounds, no murmurs heard. peripheral pulses normal radial 2+, pedal 2+. capillary refill normal about 3 secs. GI - soft abdomen with diffuse generalized mild tenderness to palpation. no hepatospleenomegaly. Bowel sounds normoactive Neurological - Patient is A/O X 3 . Bilateral upper extremity strength 4/5, bilateral lower extremity strength 3/5, no facial droop, speech normal, no tremor, no sensory deficiets laboratory and microbiology Laboratory Tests 08/14/24 05:07 08/13/24 05:20 Test 08/13/24 05:20 Range/Units Serum Glucose 157 H 74-106 mg/dL Microbiology Date/Time Source Procedure Growth Status 08/10/24 07:27 Nose MRSA Screen - Final Complete 08/09/24 20:38 Blood Blood Culture - Preliminary NO GROWTH AFTER 72 HOURS OF INCUBATION. Resulted Problem List/Assessment/Plan Problem List/Assessment/Plan acute metabolic encephalopathy likely due to sepsis History of seizure disorder - on Keppra 1000 mg b.i.d. Acute on chronic hypoxic respiratory failure COPD exacerbation Sepsis Pneumonia gram+/gram- Possible aspiration pneumonia Possible underlying congestive heart failure - ABG showed respiratory acidosis: that later improved, now in O2 2 lt no need of bipap - chest x-ray showed pulmonary venous congestion, interstitial opacities - lower lungs in the CT abdomen showed bilateral opacities more on the right - point of care ultrasound showed a right lung B lines - Breathing treatment q8h - prednisone PO - Zosyn q.8 hours - COVID and influenza negative DVT in left posterior tibial vein. PE ruled out VQ scan negative Apixaban 10 mg PO bid ?congestive heart failure Coronary artery disease s/p PCI - echo MILD LVH AND MILD LV DIASTOLIC DYSFUNCTION LV EF IS 65% - BNP normal - chest x-ray and CT abdomen shows lower lungs opacifications suspicion of fluid overload - Plavix and atorvastatin Sepsis likely due to aspiration pneumonia Lactic acidosis - IV fluids total 3 L given - on Zosyn - blood culture NEG Acute intractable abdominal pain Cholelithiasis - CT abdomen pelvis shows cholelithiasis without evidence of cholecystitis, diverticulosis - right upper quadrant ultrasound pending - on pureed diet GRETCHEN on CKD possible due to VMN improving - IV fluids given Uncontrolled insulin dependent type 2 diabetes mellitus with hyperglycemia - insulin Lantus 26 units -lispro 12ui TID - moderate insulin sliding scale - pureed diet 08/14/2024: pending home o2 for DC Home Goals of care discussed with the patient's son Rohit for over 25 minutes. Full code Time spent: 47 minutes Plan discussed with Dr. Sylvester Plan discussed with: Patient, Other (rn) My Orders My Orders Orders - EMANUEL FIORE RESIDENT Procedure Category Date Status Time Ibuprofen Tablet PHA 08/13/24 In Process (Motrin Tablet) 16:30 Apixaban (Eliquis) PHA 08/13/24 In Process 22:00 Prednisone Tablet PHA 08/14/24 In Process 10:00 Albuterol Medneb PHA 08/13/24 In Process (Ventolin Medneb) 22:00 Ipratropium Medneb PHA 08/13/24 In Process (Atrovent Medneb) 22:00 Discontinue Peres JAMIL 08/13/24 In Process Catheter 16:50 Comprehensive LAB 08/15/24 Verified Metabolic Panel 04:00 Dietary Evaluation Review Recommendations by RD: Dietary education by RD, Protein Supplementation Comments: 1) Add NCS restriction to diet 2) Initiate Glucerna bid. Encourage optimal PO intake 2) Initiate vitamin C @ 500 mg bid and zinc sulfate @ 220 mg qd for 7-10 days 3) Refer to outpatient RD/CD[facility] for diabetes education 4) Follow-up with cardiology, pulmonology, and gastroenterology 5) Continue to monitor I&O, labs, and skin integrity Expected Outcomes/Goals: 1) appetite and labs to improve 2) wounds to improve 3) f/u in 3-5 days Date of Service: Aug 14, 2024 Billing Provider: FERNANDO SYLVESTER MD Common Visit Codes: [id number] INP/OBS CARE(HIGH) EMANUEL FIORE RESIDENT Aug 14, 2024 15:33 FERNANDO SYLVESTER MD Aug 16, 2024 11:50
[2024-08-15] VITALS (8 sets, daily range): BP systolic 125–158; BP diastolic 65–72; PULSE 58–69; RESP 16–18; TEMP 97.7–97.9; O2SAT 94–99
[2024-08-15] MEDS ORDERED: hydrALAZINE HCL 20 MG/ML VL IV PRN (06:45)
[2024-08-15 07:08] LABS: Alanine Aminotransferase 25 U/L (7-40); Albumin 3.2 g/dL (3.2-4.8); Alkaline Phosphatase 49 U/L (46-116); Anion Gap 7 (5-15); Aspartate Aminotransferase 20 U/L (13-40); BUN/Creatinine Ratio 12.2 (10.0-20.0); Blood Urea Nitrogen 9 mg/dL (9-23); Calcium 9.1 mg/dL (8.7-10.4); Carbon Dioxide 31 mmol/L (20-31); Chloride 108 mmol/L (98-107); Glucose 109 mg/dL (74-106); Potassium 3.2 mmol/L (3.5-5.1); Sodium 146 mmol/L (136-145); Total Protein 5.1 g/dL (5.7-8.2)
[2024-08-15 07:09] LABS: Bilirubin, Total 0.3 mg/dL (0.2-1.0)
[2024-08-15] MEDS: LOSARTAN POTASSIUM 25 MG TAB PO SCH (10:01)
[2024-08-15] MEDS ORDERED: BLOO1KIT60 XX (11:05)
[2024-08-15] MEDS ORDERED: IPRIH INH (11:05)
[2024-08-15] MEDS ORDERED: LANCKIT12 XX (11:05)
[2024-08-15] MEDS ORDERED: INSU1INJ19 SC (14:40)
[2024-08-15] MEDS ORDERED: INSU100I4 SC (14:40)
--- NOTE | 2024-08-15 15:54 | DVHDSRES ---
Discharge Summary Date of Admission Resident Creating Document: EMANUEL FIORE RESIDENT Aug 10, 2024 at 01:02 Date of Discharge: Aug 12, 2024 Admitting Diagnosis acute metabolic encephalopathy likely due to sepsis Labs/Diagnostic Data: Laboratory Results Test 08/15/24 06:09 08/15/24 05:28 08/14/24 05:07 08/13/24 07:38 Sodium Level 146 mmol/L (136-145) Potassium Level 3.2 mmol/L (3.5-5.1) Chloride Level 108 mmol/L (98-107) Carbon Dioxide Level 31 mmol/L (20-31) Anion Gap 7 (5-15) Blood Urea Nitrogen 9 mg/dL (9-23) Creatinine 0.74 mg/dL (0.700-1.30) Glomerular Filtration Rate Calc 94 mL/min (>90) BUN/Creatinine Ratio 12.2 (10.0-20.0) Serum Glucose 109 mg/dL (74-106) Calcium Level 9.1 mg/dL (8.7-10.4) Total Bilirubin 0.3 mg/dL (0.2-1.0) Aspartate Amino Transferase (AST) 20 U/L (13-40) Alanine Aminotransferase (ALT) 25 U/L (7-40) Alkaline Phosphatase 49 U/L (46-116) Total Protein 5.1 g/dL (5.7-8.2) Albumin 3.2 g/dL (3.2-4.8) POC Glucose 117 mg/dl (70-106) White Blood Count 7.5 10^3/uL (4.4-10.8) Red Blood Count 3.62 10^6/uL (4.5-5.90) Hemoglobin 9.8 g/dL (13.5-17.5) Hematocrit 29.7 % (41.0-53.0) Mean Corpuscular Volume 82.0 fL (80.0-100.0) Mean Corpuscular Hemoglobin 27.1 pg (28.0-32.0) Mean Corpuscular Hemoglobin Concent 33.0 g/dL (32.0-36.0) Red Cell Distribution Width 20.0 % (11.8-14.3) Platelet Count 200 10^3/uL (140-450) Mean Platelet Volume 8.7 fL (6.9-10.8) Neutrophils (%) (Auto) 76.4 % (37.0-80.0) Lymphocytes (%) (Auto) 15.4 % (10.0-50.0) Monocytes (%) (Auto) 7.7 % (0.0-12.0) Eosinophils (%) (Auto) 0.4 % (0.0-7.0) Basophils (%) (Auto) 0.1 % (0.0-2.0) Neutrophils # (Auto) 5.8 10 ^3/uL (1.6-8.6) Lymphocytes # (Auto) 1.2 10 ^3/uL (0.4-5.4) Monocytes # (Auto) 0.6 10 ^3/uL (0-1.3) Eosinophils # (Auto) 0 10 ^3/uL (0-0.8) Basophils # (Auto) 0 10 ^3/uL (0-0.2) Nucleated Red Blood Cells 0.0 % Blood Gas Specimen Type Arterial Blood Gas Sample Site Left radial Blood Gas Patient Temperature 37.0 Arterial Blood Date Drawn [id number] Arterial Blood pH 7.508 (7.350-7.450) Arterial Blood Partial Pressure CO2 37.0 mmHg (35.0-48.0) Arterial Blood Partial Pressure O2 52.3 mmHg (83.0-108.0) Arterial Blood HCO3 28.7 mmol/L (21.0-28.0) Arterial Blood Oxygen Saturation 86.5 % (94.0-98.0) Arterial Blood Base Excess 5.4 mmol/L (-2.0-3.0) Arterial Blood Oxyhemoglobin 85.7 % (94.0-98.0) Arterial Blood Carboxyhemoglobin 0.6 % (0.5-1.5) Arterial Blood Methemoglobin 0.3 % (0.0-1.5) Charles Test Yes Blood Gas Total Hemoglobin 9.90 g/dL (13.5-17.5) Blood Gas Modality Room air FiO2 % 21.0 Blood Gas Critical Value Read Back yes Blood Gas Notified Whom Blood Gas Notified Time [id number] Blood Gas Notified By theresa Teixeira 08/12/24 05:05 08/11/24 07:56 08/11/24 05:13 08/10/24 09:36 Platelet Estimate Adequate Anisocytosis (manual) Moderate Lactic Acid Level 2.9 mmol/L (0.4-2.0) Differential Total Cells Counted 100.0 (100) Neutrophils % (Manual) 67 (37.0-80.0) Band Neutrophils % (Manual) 17 Lymphocytes % (Manual) 12 (10.0-50.0) Monocytes % (Manual) 4 (0-12) Eosinophils % (Manual) 0 (0-7) Basophils % (Manual) 0 (0.0-2.0) Metamyelocytes % (manual) 0 Myelocytes % (Manual) 0 Promyelocytes % (Manual) 0 Blast Cells % (Manual) 0 Reactive Lymphocytes 0 Blood Gas Liter Flow 1.00 Test 08/10/24 09:33 08/10/24 06:52 08/10/24 01:50 08/10/24 01:33 D-Dimer, Quantitative 1.86 mg/L FEU (0.0-0.49) Urine Creatinine 87.22 mg/dL (30.0-125.0) Urine Protein/Creatinine Ratio 0.43 Urine Sodium < 10 mmol/L (40-220) Urine Total Protein 37.3 mg/dL (1-14) Influenza Type A Antigen Negative (Negative) Influenza Type B Antigen Negative (Negative) SARS-CoV-2 Antigen (Rapid) Negative (NEGATIVE) Hemoglobin A1c 9.3 % A1C (<5.7) Test 08/09/24 23:20 08/09/24 18:43 08/09/24 00:00 Troponin I High Sensitivity 44 ng/L (</=54) B-Type Natriuretic Peptide 55.27 pg/mL (0-100) Lipase 28 U/L (12-53) Urine Color Yellow (Yellow) Urine Clarity Turbid (Clear) Urine pH 5.0 (5.0-9.0) Urine Specific Graham 1.019 (1.001-1.035) Urine Protein Trace (Negative) Urine Ketones Negative (Negative) Urine Blood Negative /uL (Negative) Urine Nitrite Negative (Negative) Urine Bilirubin Negative (Negative) Urine Urobilinogen Normal mg/dL (Negative) Urine Leukocyte Esterase Negative /uL (Negative) Urine RBC 1 /hpf (0 - 3) Urine Microscopic WBC 2 /HPF (0-3) Urine Squamous Epithelial Cells Few /hpf (<5) Urine Bacteria Few /hpf (None Seen) Urine Glucose 1+ mg/dL (Normal) Other Laboratory Tests 08/15/24 06:09 08/14/24 05:07 Brief Hx & Hospital Course: A 73-year-old male with a PMHx of insulin-dependent type 2 diabetes mellitus, hypertension, hyperlipidemia, COPD, coronary artery disease s/p PCI (2023), and seizure disorder who was brought from a SNF due to new-onset altered mental status and fall. Upon arrival, he had episodes of vomiting and expressive aphasia, with ABG showing PaO2 of 62. CT head was negative. Chest X-ray showed bilateral opacities; he was hypoxic and placed on 2 L nasal cannula. VQ scan was negative for PE. He was found to have DVT in the left posterior tibial vein. He was started on apixaban PO BID. Blood cultures were negative, but the clinical picture and chest imaging were consistent with aspiration pneumonia. He also had lactic acidosis that resolved with fluids and antibiotics (Zosyn). He was continued on his home antiepileptics (Keppra). Hospital Course: Sepsis likely secondary to aspiration pneumonia, treated with IV Zosyn Acute encephalopathy, likely metabolic, resolved with treatment COPD exacerbation managed with steroids and oxygen support DVT treated with apixaban, enoxaparin was discontinued Uncontrolled diabetes managed with insulin TID and sliding scale Abdominal pain workup showed cholelithiasis, no cholecystitis on imaging No need for BiPAP; transitioned to nasal cannula as oxygenation improved No evidence of PE on VQ scan GRETCHEN/CKD improved with hydration Follow-Up: PCP Continue home oxygen Patient went home this time Case discussed with Dr Sylvester Operations or Procedures EXAM: NM NM VQ SCAN HISTORY: PULMONARY EMBOLISM COMPARISON: None TECHNIQUE: 4.5 mCi of xenon 133 were utilized for the perfusion portion of the study. 5 mCi of Tc99m DTPA were utilized for the ventilation portion of the study. Comparison made to chest radiograph from 08/09/2024. FINDINGS: Ventilation and perfusion images show no large mismatched defects. IMPRESSION: 1. Low probability for pulmonary embolism. US BiLat Lower DVT HISTORY: Rule out DVT COMPARISON: None TECHNIQUE: Duplex doppler evaluation of the deep venous system of the lower extremity from the common femoral veins, superficial femoral vein, great saphenous vein, deep femoral vein, popliteal vein, and calf veins, including color doppler and spectral/pulsed waveform analysis, was performed. FINDINGS: Right: - Common femoral vein: Compressible - Deep femoral vein: Compressible - Femoral vein: Compressible - Popliteal vein: Compressible - Posterior tibial vein: Waveforms present - Other: Nothing Left: - Common femoral vein: Compressible - Deep femoral vein: Compressible - Femoral vein: Compressible - Popliteal vein: Compressible - Posterior tibial vein: No flow. - Other: Nothing IMPRESSION: Small DVT in the left posterior tibial vein. Otherwise no right or left lower extremity deep venous thrombosis. Exam: CT CT AB PEL WO CON-NO ORAL OR IV History: abd pain n/v Comparison Study: None TECHNIQUE: Multidetector CT of the abdomen and pelvis was performed from lung bases to pubic symphysis. Imaging was performed without IV contrast. Axial, coronal, and sagittal multiplanar reformats were obtained from the axial data set by the technologist. RADIATION DOSE: DLP 687.99 mGy.cm; CTDI vol 13.03 mGy. Findings: There is motion artifact. Lungs: Numerous scattered clustered nodular opacities. Heart: No cardiomegaly or pericardial effusion. Severe coronary atherosclerosis versus stents. Liver: Unremarkable. Gallbladder: Cholelithiasis without evidence of acute cholecystitis. Spleen: Unremarkable Pancreas: Atrophic pancreas. Adrenals: Unremarkable Kidneys: Unremarkable GI tract: Diverticulosis without evidence of acute diverticulitis. : Unremarkable. Vasculature: Moderate aortoiliac atherosclerosis. Lymphadenopathy: Absent Peritoneum: No ascites Musculoskeletal: Mild multilevel degenerative changes of the thoracolumbar spine. Soft tissues: Unremarkable Impression: 1. No acute abdominopelvic abnormalities. 2. Cholelithiasis without evidence of acute cholecystitis. 3. Diverticulosis without evidence acute diverticulitis. Condition at Discharge: Stable Final Diagnosis/Problems List acute metabolic encephalopathy likely due to sepsisHistory of seizure disorderAcute on chronic hypoxic respiratory failureCOPD exacerbationSepsis Pneumonia gram+/gram-Possible aspiration pneumoniaPossible underlying congestive heart failureDVT in left posterior tibial vein.PE ruled out ?congestive heart failure, non exacerbated Coronary artery disease s/p PCISepsis likely due to aspiration pneumoniaLactic acidosisAcute intractable abdominal painCholelithiasisAKI on CKD possible ATN improving Uncontrolled insulin dependent type 2 diabetes mellitus with hyperglycemia Discharge Disposition: Home Discharge Instruct/Medications Diet: Consistent carbohydrate, Cardiac 2g Na,low cholest Activity: Bed rest Follow Up/Referral: pcp simeon Medications: see prescription Discharge Statement: "Patient was advised to return to the ER or call 911 if any headaches, dizziness, shortness of breath, chest pain, abdominal pain, bleeding, fevers, or worsening of medical condition. Patient was counseled about treatment plan, medications, possible side effects, patientverbalized understanding. All questions were answered to the best of my ability. This discharge took greater then 30 minutes in planning, reviewing documentation, counseling the patient, and discussing with other team members." ASSESSMENT ASSESSMENT Assessment acute metabolic encephalopathy likely due to sepsisHistory of seizure disorderAcute on chronic hypoxic respiratory failureCOPD exacerbationSepsis Pneumonia gram+/gram-Possible aspiration pneumoniaPossible underlying congestive heart failureDVT in left posterior tibial vein.PE ruled out ?congestive heart failureCoronary artery disease s/p PCISepsis likely due to aspiration pneumoniaLactic acidosisAcute intractable abdominal painCholelithiasisAKI on CKD possible ATN improving Uncontrolled insulin dependent type 2 diabetes mellitus with hyperglycemia Date of Service: Aug 12, 2024 Billing Provider: FERNANDO SYLVESTER MD Common Visit Codes: 02571-AQF/OBS DISCH DAY >30min EMANUEL FIORE RESIDENT Aug 15, 2024 15:54 FERNANDO SYLVESTER MD Aug 16, 2024 12:28
[2024-08-15] MEDS ORDERED: LOPERAMIDE HCL 2 MG CAP/TAB PO ONE (20:15)
== END 2024-08-15 14:05 | disposition home or self-care (01) | DRG 871 ==
LOC: EDBD 18:24 → ER 18:31 → OVERFLOW 08-10 01:02 → TELE-WESTW 08-10 04:38
PROVIDERS: ADMIT Student in an Organized Health Care Education/Training Program; ATTEND Emergency Medicine
DX: A41.50 Gram-negative sepsis, unspecified (principal); G93.41 Metabolic encephalopathy; J15.69 Pneumonia due to other Gram-negative bacteria; J69.0 Pneumonitis due to inhalation of food and vomit; N17.0 Acute kidney failure with tubular necrosis; J96.21 Acute and chronic respiratory failure with hypoxia; J15.9 Unspecified bacterial pneumonia; E87.20 Acidosis, unspecified; I82.442 Acute embolism and thrombosis of left tibial vein; J44.1 Chronic obstructive pulmonary disease with (acute) exacerbation; J44.0 Chronic obstructive pulmonary disease with (acute) lower respiratory infection; I13.0 Hypertensive heart and chronic kidney disease with heart failure and stage 1 through stage 4 chronic kidney disease, or unspecified chronic kidney disease; E55.9 Vitamin D deficiency, unspecified; E11.65 Type 2 diabetes mellitus with hyperglycemia; N18.9 Chronic kidney disease, unspecified; K80.20 Calculus of gallbladder without cholecystitis without obstruction; I50.9 Heart failure, unspecified; I25.10 Atherosclerotic heart disease of native coronary artery without angina pectoris; E03.9 Hypothyroidism, unspecified; G40.909 Epilepsy, unspecified, not intractable, without status epilepticus; Z20.822 Contact with and (suspected) exposure to COVID-19; E78.5 Hyperlipidemia, unspecified; K57.30 Diverticulosis of large intestine without perforation or abscess without bleeding; E11.22 Type 2 diabetes mellitus with diabetic chronic kidney disease; Z99.81 Dependence on supplemental oxygen; Z79.4 Long term (current) use of insulin
CPT/HCPCS: 36415; 36600; 71045; 74176; 76705; 78582; 80048; 80053; 81001; 82570; 82805; 82962; 83036; 83605; 83690; 83880; 84156; 84300; 84484; 85007; 85025; 85027; 85379; 87040; 87081; 87426; 87804; 93005; 93306; 93970; 94640; 96365; 96375; 97110; 97116; 97163; 97530; 99291; G0378; J1815; J2003; J2405; J2470; J2543; J3480

== ENCOUNTER 2024-11-26 18:32 | Emergency (ER) | payer OTHER, MEDICAID ==
[~2024-11-26] VITALS: Ht 165.1 cm; Wt 72.6 kg
[~2024-11-26 18:32] MED LIST: ACET-1882 PO; ALBUAER3 IN; APIX5TAB PO; ASPI-325 PO; ATOR-47 PO; ATOR40TA52 PO; BLOO1KIT60 XX; CLOP75TA70 PO; INSU100I4 SC; INSU1INJ19 SC; IPRIH INH; LANCKIT12 XX; LEVE100012 PO; LOSA-535 PO
[2024-11-26] MEDS: FUROSEMIDE 40 MG/4 ML VIAL IV ONE (18:53)
[2024-11-26 18:57] VITALS: PULSE 82; RESP 26; O2SAT 100
--- NOTE | 2024-11-26 19:03 | ED.PDOC ---
History of Present Illness HPI Comments 74 y/o M is BIBA from private residence for c/c of nonradiating, left sided chest pain. Significant history of CAD s/p PCI (2023), COPD, DVT, DM II, Eliquis use, HLD, HTN, Sepsis, and Seizures. Per EMS report, patient called for sudden, unprovoked, and atraumatic onset of pain 30x minutes prior to arrival to ED. En route, patient then was stated to have become, suddenly, short of breath, with cyanotic lips. He was given 1g Tylenol, 324mg ASA, and placed on CPAP, with improvement to symptoms. No reported modifiers. No endorsed known recent travel, sick contact, stressors, strenuous activities, or additional pertinent events or history. No reported nausea, vomiting, cough, congestion, or further acute symptoms. Chief Complaint: Chest Pain Time Seen by MD: 18:45 Primary Care Provider: unknown Reviewed Notes: Nurses Notes, Unit Coordinator Notes, Medications, Allergies Allergies: Coded Allergies: NO KNOWN ALLERGIES (Unverified , 08/09/24) Home Meds Active Scripts Ipratropium [place] Hfa (Atrovent Hfa) 17 Mcg Aer, 2 PUFF INH QID for 30 Days, #12.9 GRAMS 3 Refills Prov:EMANUEL FIORE 08/15/24 Insulin Lispro (Humalog Kwikpen) 100 Unit/Ml Inj, 10 UNIT SC TID for 30 Days, #5 INJ please apply 10 ui before each meal, if the patient will nor eat dont apply Prov:EMANUEL FIORE 08/15/24 Insulin Glargine (Basaglar Kwikpen) 100 Unit/Ml Inj, 26 UNIT SC DAILY for 30 Days, #3 INJ please apply 26 ui at night Prov:EMANUEL FIORE 08/15/24 Blood Glucose Monitoring Suppl (D-Care Glucometer Kit/Glu W/Device) 1 Kit Kit, KIT XX ACHS, #1 1 Refill please check sugars before meals and bedtime Prov:EMANUEL FIORE 08/15/24 Lancets Misc. (ACCU-CHEK FASTCLIX LANCET) Fastclix Kit, UNIT XX ACHS, #120 please check sugars before meals and bedtime Prov:EMANUEL FIORE 08/15/24 Ipratropium [place] Hfa (Atrovent Hfa) 17 Mcg Aer, 2 PUFF INH QID for 30 Days, #12.9 GRAMS 5 Refills Prov:EMANUEL FIORE 08/15/24 Albuterol Sulfate (VENTOLIN MDI) 90 Mcg Ih, 90 MCG IN Q8HR for 30 Days, #1 INH Prov:EMANUEL FIORE 08/14/24 Aspirin (Aspirin Low Dose) 81 Mg Tab, 81 MG PO DAILY for 90 Days, #90 TAB Prov:EMANUEL FIORE [facility] 08/14/24 Clopidogrel Bisulfate (CLOPIDOGREL) 75 Mg Tab, 75 MG PO DAILY for 90 Days, #90 TAB Prov:EMANUEL FIORE [facility] 08/14/24 Atorvastatin Calcium (ATORVASTATIN CALCIUM) 40 Mg Tab, 40 MG PO DAILY for 90 Days, #90 TAB Prov:EMANUEL FIORE [facility] 08/14/24 Apixaban Base (ELIQUIS) 5 Mg Tab, 5 MG PO BID for 90 Days, #180 TAB Prov:EMANUEL FIORE [facility] 08/14/24 Apixaban Base (ELIQUIS) 5 Mg Tab, 10 MG PO BID for 5 Days, #20 TAB Prov:EMANUEL FIORE [facility] 08/14/24 Acetaminophen (Acetaminophen) 325 Mg Tab, 325 MG PO Q6HP PRN for 10 Days, #40 TAB Prov:EMANUEL FIORE [facility] 08/14/24 Reported Medications Atorvastatin Calcium (ATORVASTATIN CALCIUM) 80 Mg Tab, 1 TAB PO DAILY, #30 TAB 5 Refills 08/10/24 Losartan Potassium (Losartan Potassium) 100 Mg Tab, 1 TAB PO DAILY, #30 TAB 5 Refills 08/10/24 Levetiracetam (Keppra) 1,000 Mg Tab, 1 TAB PO BID, #60 TAB 5 Refills 08/10/24 Mode of Arrival: EMS Past Medical History PAST MEDICAL HISTORY: CAD (s/p PCI (2023)), COPD, DM (type II), High Lipids, HTN, Seizures Past Medical History (Other): Eliquis use DVT Pneumonia Sepsis Surgical History (Other): CAD s/p PCI (2023) All Other Systems: Reviewed and Negative (Comprehensive review of systems are negative unless stated in HPI) Physical Exam General Appearance: No Apparent Distress, Normal HEENT: Normal ENT Inspection, Pharynx Normal, TMs Normal Neck: Full Range of Motion, Non-Tender, Normal, Normal Inspection Respiratory: Chest Non-Tender, Lungs Clear, No Accessory Muscle Use, No Respiratory Distress, Rales (bilateral lung sands), Rhonchi (bilateral lung sands) Cardiovascular: No Edema, No JVD, No Murmur, No Gallop, Normal Peripheral Pulses, Regular Rate/Rhythm Breast Exam: Deferred Gastrointestinal: No Organomegaly, Non Tender, No Pulsatile Mass, Normal Bowel Sounds, Soft Genitalia: Deferred Pelvic: Deferred Rectal: Deferred Extremities: No calf tenderness, Normal capillary refill, Normal inspection, Normal range of motion, Non-tender, No pedal edema Musculoskeletal : Apperance: Normal Neurologic: Alert, manager track II-XII nml as Tested, No Motor Deficits, Normal Affect, Normal Mood, No Sensory Deficits Cerebellar Function: Normal Reflexes: Normal Skin: Dry, Normal Color, Warm Lymphatic: No Adenopathy Was a procedure done? Was a procedure done?: No EKG EKG : Pulse Rate (adult): 106 [place]: Normal Cardiac Rhythm: ST Block: None Hypertrophy: None ST: Normal Differential Dx Considerations may include: MN, PE, ACS, URI, PNA, anxiety, angina, among others X-Ray, Labs, Meds, VS Vital Signs Date Time Temp Pulse Resp B/P (MAP) Pulse Ox O2 Delivery O2 Flow Rate FiO2 11/26/24 20:23 98.2 76 24 203/103 100 3.0 32 98.2 11/26/24 20:00 97.8 69 28 141/61 (87) 100 97.8 11/26/24 19:31 76 11/26/24 19:03 106 11/26/24 18:57 82 26 100 Bi-Pap+ 100 100 11/26/24 18:57 98.2 82 26 203/103 (136) 100 98.2 11/26/24 18:54 92 203/102 Facial BiPAP Mask 100 11/26/24 18:53 203/102 11/26/24 18:41 106 11/26/24 18:33 98.2 109 30 203/102 98 98.2 Lab Test 11/26/24 20:13 11/26/24 19:20 Range/Units Troponin I High Sensitivity Pending 227 *H </=54 ng/L White Blood Count 9.2 4.4-10.8 10^3/uL Red Blood Count 3.31 L 4.5-5.90 10^6/uL Hemoglobin 8.9 L 13.5-17.5 g/dL Hematocrit 27.5 L 41.0-53.0 % Mean Corpuscular Volume 82.9 80.0-100.0 fL Mean Corpuscular Hemoglobin 26.7 L 28.0-32.0 pg Mean Corpuscular Hemoglobin Concent 32.2 32.0-36.0 g/dL Red Cell Distribution Width 15.3 H 11.8-14.3 % Platelet Count 219 140-450 10^3/uL Mean Platelet Volume 8.1 6.9-10.8 fL Neutrophils (%) (Auto) 86.7 H 37.0-80.0 % Lymphocytes (%) (Auto) 9.5 L 10.0-50.0 % Monocytes (%) (Auto) 3.2 0.0-12.0 % Eosinophils (%) (Auto) 0.4 0.0-7.0 % Basophils (%) (Auto) 0.2 0.0-2.0 % Neutrophils # (Auto) 8.0 1.6-8.6 10 ^3/uL Lymphocytes # (Auto) 0.9 0.4-5.4 10 ^3/uL Monocytes # (Auto) 0.3 0-1.3 10 ^3/uL Eosinophils # (Auto) 0 0-0.8 10 ^3/uL Basophils # (Auto) 0 0-0.2 10 ^3/uL Nucleated Red Blood Cells 0.0 % Prothrombin Time 10.3 9.3-11.8 sec Prothrombin Time INR 0.97 0.9-1.15 Activated Partial Thromboplast Time 24.3 L 24.5-34.5 SEC Sodium Level 133 L 136-145 mmol/L Potassium Level 5.6 *H 3.5-5.1 mmol/L Chloride Level 99 98-107 mmol/L Carbon Dioxide Level 25 20-31 mmol/L Anion Gap 9 5-15 Blood Urea Nitrogen 22 9-23 mg/dL Creatinine 1.23 0.700-1.30 mg/dL Glomerular Filtration Rate Calc 61 >90 mL/min BUN/Creatinine Ratio 17.9 10.0-20.0 Serum Glucose 415 *H 74-106 mg/dL Lactic Acid Level 5.3 *H 0.4-2.0 mmol/L Calcium Level 8.7 8.7-10.4 mg/dL Magnesium Level 1.5 L 1.6-2.6 mg/dL Total Bilirubin 0.2 0.2-1.0 mg/dL Aspartate Amino Transferase (AST) 24 13-40 U/L Alanine Aminotransferase (ALT) 29 7-40 U/L Alkaline Phosphatase 57 46-116 U/L B-Type Natriuretic Peptide 867.37 0-100 pg/mL Total Protein 6.4 5.7-8.2 g/dL Albumin 4.1 3.2-4.8 g/dL Current Medications Medications (Trade) Dose Ordered Sig/[place] Route Start Time Stop Time Status Last Admin Furosemide (Lasix Injection) 40 mg ONCE ONCE IV 11/26/24 18:45 11/26/24 18:47 DC 11/26/24 18:53 Insulin Human Regular (InsuLIN R) 6 units ONCE ONCE SC 11/26/24 20:15 11/26/24 20:16 DC 11/26/24 20:45 Aspirin 81 mg ONCE ONCE PO 11/26/24 20:15 11/26/24 20:16 DC 11/26/24 20:26 Ceftriaxone Sodium 50 ml @ 100 mls/hr ONCE ONCE IV 11/26/24 20:15 11/26/24 20:44 DC 11/26/24 20:25 Azithromycin 250 ml @ 125 mls/hr ONCE ONCE IV 11/26/24 20:15 11/26/24 22:14 11/26/24 20:25 [place] [id number] Ph: [phone] DIAGNOSTIC IMAGING Diagnostic Imaging Report : [id number] Signed PATIENT: MARY JANE BRITT ACCT: [id number] UNIT: [id number] : 1950 LOC: ER ROOM / BED: / AGE / SEX: 74 / M ADM STATUS: REG ER SERVICE 43 ORDERING PHYSICIAN: SERGEY VO MD PROCEDURE(s): CXRP - CHEST PORTABLE REASON: SOB ORDER NUMBER(s): [id number], ACCESSION NUMBER(s): [id number] CHEST RADIOGRAPH Indication: SOB Technique: Single frontal view of the chest was obtained COMPARISON: XY CHEST PORTABLE on DOS: 08/09/24 FINDINGS: Cardiac silhouette is borderline size moderate prominence of the pulmonary vasculature and slight prominence of interstitium. Mild hazy ground glass opacity through both lungs. No dense focal airspace disease or significant pleural effusions. Bones and soft tissues demonstrate no significant abnormality. IMPRESSION: 1. Borderline cardiomegaly with mild pulmonary vascular congestion and mild interstitial edema. ATED BY: MANSOOR PATEL MD DICTATED DATE/TIME: 11/26/241917 SIGNED BY: MANSOOR PATEL MD SIGNED DATE/TIME: 11/26/241917 CC: Time of 1ST Reevaluation: 19:15 Reevaluation 1ST: Unchanged Patient Education/Counseling: Treatment, Other (need for admission ) Family Education/Counseling: No Family Present SEPSIS Sepsis Screen Date sepsis recognized/suspect: Nov 26, 2024 Time Sepsis recognized/suspect: 1832 Recent Procedure: No On Antibiotic Therapy: No Respiratory Rate >20: Yes Heart Rate >90: Yes Temp<36 C (96.8 F) or >38.3 C: No SBP <90 or MAP <65 mmHG: No New Acute Mental Status Change: No Is the patient on CPAP, BIPAP,: Yes Physician Orders Electrocardigram (11/26/24 19:44) Electrocardigram (11/26/24 21:44) Chest Portable (11/26/24 18:44) Troponin-I Hs (11/26/24 19:44) Troponin-I Hs (11/26/24 21:44) Blood Culture (11/26/24 18:44) BIPAP (11/26/24 18:50) Azithromycin 500mg/ 250ml (Zithromax 50 (11/26/24 20:15) Morphine Sulfate Injection (11/26/24 21:15) Ondansetron Hcl (Zofran) (11/26/24 21:15) Vital Signs Date Time Temp Pulse Resp B/P (MAP) Pulse Ox O2 Delivery O2 Flow Rate FiO2 11/26/24 20:23 98.2 76 24 203/103 100 3.0 32 98.2 11/26/24 20:00 97.8 69 28 141/61 (87) 100 97.8 11/26/24 19:31 76 11/26/24 19:03 106 11/26/24 18:57 82 26 100 Bi-Pap+ 100 100 11/26/24 18:57 98.2 82 26 203/103 (136) 100 98.2 11/26/24 18:54 92 203/102 Facial BiPAP Mask 100 11/26/24 18:53 203/102 11/26/24 18:41 106 11/26/24 18:33 98.2 109 30 203/102 98 98.2 Laboratory Tests Test 11/26/24 19:20 Lactic Acid Level 5.3 mmol/L (0.4-2.0) *H White Blood Count 9.2 10^3/uL (4.4-10.8) Medications Medications Dose Ordered Sig/[place] Route Start Time Stop Time Status Last Admin Dose Admin Aspirin 81 mg ONCE ONCE PO 11/26/24 20:15 11/26/24 20:16 DC 11/26/24 20:26 Azithromycin 250 ml @ 125 mls/hr ONCE ONCE IV 11/26/24 20:15 11/26/24 22:14 11/26/24 20:25 Ceftriaxone Sodium 50 ml @ 100 mls/hr ONCE ONCE IV 11/26/24 20:15 11/26/24 20:44 DC 11/26/24 20:25 Furosemide 40 mg ONCE ONCE IV 11/26/24 18:45 11/26/24 18:47 DC 11/26/24 18:53 Insulin Human Regular 6 units ONCE ONCE SC 11/26/24 20:15 11/26/24 20:16 DC 11/26/24 20:45 Departure 1 Departure Time of Disposition: 20:05 Impression: Primary Impression: Respiratory failure with hypoxia Additional Impressions: Congestive heart failure Type 2 diabetes mellitus with hyperglycemia Pneumonitis Disposition: 02 SHORT TERM HOSPITAL Admit to: Tele Condition: Guarded Comments 74-year-old male with severe shortness of breath brought in by ambulance on BiPAP. Patient was given some Lasix in his breathing improved. Patient was weaned off the BiPAP. Chest x-ray shows CHF. Lab results reviewed. Patient is anemic with a H&H of 8.9 and 22.5. Hyperkalemia at 5.6. Hyperglycemia 415. Lactic acid elevated 5.3. Troponin high at 227. BNP elevated at 867. Patient has some dyspnea on re-evaluation after the Lasix. Patient was given insulin for the hyperglycemia. Patient was given Rocephin and azithromycin for suspected pneumonia. Patient is still requiring oxygen. Patient will need to be admitted for supportive care and further workup. We called [facility] for disposition. I contacted [facility] and discussed the case with [facility] SHAQUILLE PHILLIP. They are arranging to have the patient transferred. Authorization number from [facility] was [id number] Critical Care Note Critical Care Time?: No Stability Stability form required: No Heart Score Heart Score: Heart Score Response (Comments) Value History Highly Suspicious 2 EKG Normal 0 Age >65 2 Risk Factors >3 or Hx ASHD 2 Troponin 1-2 x's Normal limit 1 Total 7 I personally scribed for SERGEY VO MD ([email or web address]) on 11/26/24 at 19:03. Electronically submitted by John Viera ([email or web address]). I personally scribed for SERGEY VO MD ([email or web address]) on 11/26/24 at 20:02. Electronically submitted by John Viera ([email or web address]). SERGEY VO MD Nov 26, 2024 19:03
--- NOTE | 2024-11-26 19:21 | DVH ---
CHEST RADIOGRAPH Indication: SOB Technique: Single frontal view of the chest was obtained COMPARISON: XY CHEST PORTABLE on DOS: 08/09/24 FINDINGS: Cardiac silhouette is borderline size moderate prominence of the pulmonary vasculature and slight pro minence of interstitium. Mild hazy ground glass opacity through both lungs. No dense focal airspace d isease or significant pleural effusions. Bones and soft tissues demonstrate no significant abnormalit y. IMPRESSION: 1. Borderline cardiomegaly with mild pulmonary vascular congestion and mild interstitial edema.
--- NOTE | 2024-11-26 19:34 | ECG ---
[facility] Test Date: 2024-11-26 Test Time: 19:31:03 Pat Name: MARY JANE BRITT Department: Room: Gender: M Director Health: : 1950 Requested By: SERGEY VO Order Number: [id number] Reading MD: Josh Maldonado Measurements Intervals [place] Rate: 76 P: 0 UT: 0 QRS: 11 QRSD: 123 T: -86 QT: 394 QTc: 444 Interpretive Statements Atrial flutter Ventricular premature complex Aberrant conduction of SV complex(es) Left bundle branch block Electronically Signed On 11-27-2024 15:43:23 PDT by Josh Maldonado Please click the below link to view image of tracing.
[2024-11-26 19:45] LABS: Hematocrit 27.5 % (41.0-53.0); Hemoglobin 8.9 g/dL (13.5-17.5); Mean Corpuscular Hemoglobin 26.7 pg (28.0-32.0); Mean Corpuscular Volume 82.9 fL (80.0-100.0); Nucleated Red Blood Cells % 0.0 %
[2024-11-26 19:55] VITALS: PULSE 76; RESP 25; O2SAT 100
[2024-11-26 19:57] LABS: Alanine Aminotransferase 29 U/L (7-40); Albumin 4.1 g/dL (3.2-4.8); Alkaline Phosphatase 57 U/L (46-116); Anion Gap 9 (5-15); BUN/Creatinine Ratio 17.9 (10.0-20.0); Blood Urea Nitrogen 22 mg/dL (9-23); Calcium 8.7 mg/dL (8.7-10.4); Carbon Dioxide 25 mmol/L (20-31); Chloride 99 mmol/L (98-107); Total Protein 6.4 g/dL (5.7-8.2)
[2024-11-26 19:59] LABS: Bilirubin, Total 0.2 mg/dL (0.2-1.0); Magnesium 1.5 mg/dL (1.6-2.6); Sodium 133 mmol/L (136-145)
[2024-11-26 20:00] LABS: INR 0.97 (0.9-1.15); Partial Thromboplastin Time 24.3 SEC (24.5-34.5); Prothrombin Time 10.3 sec (9.3-11.8)
[2024-11-26 20:02] LABS: Glucose 415 mg/dL (74-106); Potassium 5.6 mmol/L (3.5-5.1)
[2024-11-26 20:03] LABS: Lactic Acid w/Reflex 5.3 mmol/L (0.4-2.0)
[2024-11-26 20:23] VITALS: BP 203/103; PULSE 76; RESP 24; TEMP 98.2; O2SAT 100
[2024-11-26] MEDS: AZITHROMYCIN 500MG/ 250ML 250 ML IV ONE (20:25)
[2024-11-26] MEDS: InsuLIN REG 1unit/0.01ml Soln (100units/ml) SC ONE (20:45)
--- NOTE | 2024-11-26 21:35 | ECG ---
[facility] Test Date: 2024-11-26 Test Time: 21:29:29 Pat Name: MARY JANE BRITT Department: Room: Gender: Ethical Hacker: : 1950 Requested By: SERGEY VO Order Number: [id number] Reading MD: Josh Maldonado Measurements Intervals [place] Rate: 63 P: 140 OR: 245 QRS: 72 QRSD: 102 T: 48 QT: 420 QTc: 430 Interpretive Statements Sinus or ectopic atrial rhythm Prolonged OR interval Minimal ST depression, inferior leads Electronically Signed On 11-27-2024 15:44:02 PDT by Josh Maldonado Please click the below link to view image of tracing.
[2024-11-26 21:49] LABS: Urine Protein, UAD Negative (Negative)
[2024-11-26] MEDS: MORPHINE SULFATE 4 MG/ML SYR/VIAL IV ONE (21:49)
[2024-11-26] MEDS: ONDANSETRON HCL 4 MG/2 ML VIAL IV ONE (21:49)
[2024-11-26 22:55] VITALS: BP 125/57; PULSE 61; RESP 22; TEMP 97.9; O2SAT 100
--- NOTE | 2024-11-27 15:39 | ECG ---
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
== END 2024-11-26 22:54 | disposition short-term general hospital (02) ==
LOC: ER 18:32 → EDBD 18:32 → ER 22:54
DX: J96.91 Respiratory failure, unspecified with hypoxia (principal); I11.0 Hypertensive heart disease with heart failure; I50.9 Heart failure, unspecified; E11.65 Type 2 diabetes mellitus with hyperglycemia; J98.4 Other disorders of lung; Z79.899 Other long term (current) drug therapy; Z86.718 Personal history of other venous thrombosis and embolism
CPT/HCPCS: 36415; 71045; 80053; 81001; 83605; 83735; 83880; 84484; 85025; 85610; 85730; 87040; 93005; 96365; 96366; 96368; 96375; 99285; J0456; J0696; J1815; J1938; J2270; J2405

== ENCOUNTER 2024-12-25 15:44 | Emergency (ER) | payer OTHER, MEDICAID ==
[~2024-12-25] VITALS: Ht 152.4 cm; Wt 70.0 kg
--- NOTE | 2024-12-25 15:59 | ED.PDOC ---
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 Per EMS, patient was seen at [facility] today for seizure, was discharged home, got home and experienced a possible seizure episode while sitting on the couch. Patient states he was experiencing dizziness, sat on the couch, family was concerned. Patient was able to ambulate to restroom, had a bowel movement, experienced an episode of nausea/vomiting. Upon EMS arrival, patient was hypotensive with BP 86/41, was given 500 mL IVF in route to ED, slight improvement. Patient states he is currently experiencing dizziness. Denies fall, injury, trauma, head injury, chest pain, shortness of breath, blurred vision, headache. No other symptoms or modifying factors present at this time. Patient is not postictal. Initial Vitals BP: 98/49 HR: 57 RR: 18 O2: 98% Temp: 98.1 F Past Medical History: CAD, COPD, DM, HLD, HTN, Seizure Past Surgical History: Denies Social History: Denies ETOH, smoking, and drug use. Medications: Keppra Allergies: NKDA HPI: Poor Historian. No witnessed fall or trauma. Patient is just left a hospital earlier today and he said that he received his seizure medications and blood pressure medications at the hospital. Family witnessed a dizziness like episode. Patient was hypotensive at the scene and responded to fluid resuscitation in route by EMS and here in the ED. Upon arrival patient only complaint is slight dizziness with systolic blood pressure in the 90s. REVIEW OF SYSTEMS: CONSTITUTIONAL: Denies acute: fever, diaphoresis, chills, HEAD: Denies acute: headache, photophobia Eyes: Denies acute: Double vision, vision loss, eye pain, eye discharge. EARS: Denies acute: tinnitus, hearing loss, ear discharge, ear pain, THROAT: Denies acute: sore throat, swelling, difficulty swallowing , pain with swallowing, change in voice. NECK: Denies acute: neck pain, neck swelling, stiff neck. HEART: Denies acute : chest pain, palpitations, LUNGS: Denies acute: SOB, wheezing, cough, hemoptysis ABDOMEN: Denies acute: abdominal pain, Nausea, Vomiting, diarrhea, melena , hematemesis, hematochezia SKIN: Denies acute: rash, redness, lesions, itchiness. EXTREMITIES: Denies acute: calf pain, numbness, tingling, weakness, denies pain in extremity. Denies acute: Low back pain. Neuro: Denies acute: focal neurological deficit, motor or sensory focal neurological deficit, tremors, confusion, change in mental status, loss of bowel or bladder function, cauda equina like symptoms. : Denies acute: dysuria, hematuria, flank pain, increase in urinary frequency. PSYCH: Denies acute: hallucination, suicidal ideation, homicidal ideation. PHYSICAL EXAM: General: -----no---acute distress, awake and alert. Head: normocephalic, atraumatic. Neck: supple, trachea is midline, no swelling. Throat: Normal phonation. No evidence of oral trauma. Eyes:, no erythema, no purulent discharge, no proptosis, no icterus. Heart: regular rate, regular rhythm, no significant murmur appreciated. Lungs: no apparent respiratory distress, Able to speak in full sentences. No wheezing, no rhonchi, no crackles. No stridors Clear to auscultation bilaterally. Abdomen: non tender to palpation, non distended, soft, no guarding, no rebound, + bowel sounds. Patient is wearing a diaper Neuro: Awake, Alert, oriented to name, self, situation, follows commands GCS=15. Speech is normal. Skin: no petechia, no purpura, no cyanosis, non-pale, not jaundice. Lower extremities: --trace - Pitting edema no deformity, no focal swelling, no calf TTP. Makes eye contact. moves all four extremities. Face: no apparent facial droop. PERRLA, EOM-I ED COURSE: DISCLAIMER: This medical document was created using an electronic medical record system with voice recognition software and computerized dictation system. Although this document has been carefully reviewed, there might still be some phonetic and typographical errors. Occasional wrong-word or "sound-alike" substitutions may have occurred due to the inherent limitations of voice recognition software. These areas are purely typographical due to imperfections of the software programs and do not reflect any compromise in the patient's medical care. Please read the chart carefully and recognize, using context, where these substitutions have occurred. Time Seen by MD: 15:50 Primary Care Provider: unknown Reviewed Notes: Medications, Allergies Information Source: Patient Mode of Arrival: EMS Severity: Moderate Timing: Hours Duration: Since onset Prehospital treatment: IVF Past Medical History PAST MEDICAL HISTORY: CAD, COPD, DM, High Lipids, HTN, Seizures Surgical History: Denies all surgeries Family History Family History: Reviewed,noncontributory to illness, No family hx of Cancer, No family hx of DM, No family hx of Heart blanquita, No family hx of HTN, No family hx ofKidney blanquita, No family hx of Liver blanquita, No family hx of Lung blanquita, No family hx of Stroke Social History Smoker: Non-Smoker Alcohol: Denies ETOH Use Drugs: Denies Drug Use Lives In: Home Was a procedure done? Was a procedure done?: No Differential Diagnosis (SZ) General Weakness: Anemia, CVA, Dehydration, Dysrhythmia, Electrolyte imbalance, Encephalopathy, Guillain-[place], Hypoglycemia, Hypotension, Hypovolemia, Labyrinthitis, Meniere's disease, Myasthenia gravis, Myocardial infarction, Pulmonary embolus, Renal failure, Repiratory failure, TIA, VBI, Vertigo: central, Vertigo: peripheral, Vestibular neuronitis X-Ray, Labs, Meds, VS Vital Signs Date Time Temp Pulse Resp B/P (MAP) Pulse Ox O2 Delivery O2 Flow Rate FiO2 12/25/24 22:00 62 20 147/105 (119) 96 12/25/24 20:00 59 20 111/52 (71) 98 12/25/24 19:30 96 Room Air* 0 21 12/25/24 19:30 98.4 63 16 106/51 (69) 97 98.4 12/25/24 18:56 98.3 57 17 111/46 (67) 91 98.3 12/25/24 16:10 89 Room Air* 0 21 12/25/24 15:50 98.2 57 18 98/49 98 98.2 12/25/24 15:48 58 Lab Test 12/25/24 19:30 12/25/24 18:08 12/25/24 16:55 Range/Units Lactic Acid Level 1.2 2.9 *H 0.4-2.0 mmol/L Troponin I High Sensitivity 22 22 24 </=54 ng/L White Blood Count 6.9 4.4-10.8 10^3/uL Red Blood Count 3.89 L 4.5-5.90 10^6/uL Hemoglobin 10.0 L 13.5-17.5 g/dL Hematocrit 31.0 L 41.0-53.0 % Mean Corpuscular Volume 79.6 L 80.0-100.0 fL Mean Corpuscular Hemoglobin 25.7 L 28.0-32.0 pg Mean Corpuscular Hemoglobin Concent 32.3 32.0-36.0 g/dL Red Cell Distribution Width 16.6 H 11.8-14.3 % Platelet Count 284 140-450 10^3/uL Mean Platelet Volume 7.7 6.9-10.8 fL Neutrophils (%) (Auto) 78.1 37.0-80.0 % Lymphocytes (%) (Auto) 11.3 10.0-50.0 % Monocytes (%) (Auto) 8.4 0.0-12.0 % Eosinophils (%) (Auto) 1.7 0.0-7.0 % Basophils (%) (Auto) 0.5 0.0-2.0 % Neutrophils # (Auto) 5.4 1.6-8.6 10 ^3/uL Lymphocytes # (Auto) 0.8 0.4-5.4 10 ^3/uL Monocytes # (Auto) 0.6 0-1.3 10 ^3/uL Eosinophils # (Auto) 0.1 0-0.8 10 ^3/uL Basophils # (Auto) 0 0-0.2 10 ^3/uL Nucleated Red Blood Cells 0.0 % Sodium Level 144 136-145 mmol/L Potassium Level 4.0 3.5-5.1 mmol/L Chloride Level 108 H 98-107 mmol/L Carbon Dioxide Level 27 20-31 mmol/L Anion Gap 9 5-15 Blood Urea Nitrogen 16 9-23 mg/dL Creatinine 1.30 0.700-1.30 mg/dL Glomerular Filtration Rate Calc 57 >90 mL/min BUN/Creatinine Ratio 12.3 10.0-20.0 Serum Glucose 115 H 74-106 mg/dL Calcium Level 8.8 8.7-10.4 mg/dL Total Bilirubin 0.4 0.2-1.0 mg/dL Aspartate Amino Transferase (AST) 20 13-40 U/L Alanine Aminotransferase (ALT) 36 7-40 U/L Alkaline Phosphatase 56 46-116 U/L Total Protein 6.4 5.7-8.2 g/dL Albumin 4.0 3.2-4.8 g/dL [place] [address] Ph: [phone] DIAGNOSTIC IMAGING Diagnostic Imaging Report : [id number] Signed PATIENT: MARY JANE BRITT ACCT: [id number] UNIT: [id number] : 1950 LOC: ER ROOM / BED: / AGE / SEX: 74 / M ADM STATUS: REG ER SERVICE 1622 ORDERING PHYSICIAN: WINSTON LOPEZ DO PROCEDURE(s): HWOCT - HEAD WITHOUT CONTRAST REASON: dizzy, hypotension ORDER NUMBER(s): [id number], ACCESSION NUMBER(s): [id number] CLINICAL HISTORY: dizzy, hypotension TECHNIQUE: Helical scanning was performed of the head from the skull base to the vertex. Multiplanar reconstructions were performed. This exam was performed according to our departmental dose optimization program. Up-to-date CT equipment and radiation dose reduction techniques are utilized as appropriate. CTDI 54 DLP 869 COMPARISON: None FINDINGS: There is no evidence for acute intracranial hemorrhage, acute ischemic changes, mass, mass effect, or extra-axial fluid collection. There is no hydrocephalus or midline shift. There is no effacement of the cerebral sulci and basal subarachnoid cisterns. The alaniz-white matter differentiation is well maintained. There is mild brain volume loss and chronic small vessel ischemic change. There is a Small to moderate area of right lateral temporal lobe encephalomalacia. There is a small area of right anterior inferior frontal lobe encephalomalacia. Both findings are likely posttraumatic, given location. Scattered calcification within the brain are nonspecific finding, but can be seen the setting of prior neurocysticercosis infection. The imaged paranasal sinuses are clear. IMPRESSION: NO ACUTE INTRACRANIAL ABNORMALITY SEEN. ATED BY: DARREL GUAMAN MD DICTATED DATE/TIME: 12/25/241738 SIGNED BY: DARREL GUAMAN MD SIGNED DATE/TIME: 12/25/241738 CC: [place] [address] Ph: [phone] DIAGNOSTIC IMAGING Diagnostic Imaging Report : [id number] Signed PATIENT: MARY JANE BRITT ACCT: [id number] UNIT: [id number] : 1950 LOC: ER ROOM / BED: / AGE / SEX: 74 / M ADM STATUS: REG ER SERVICE 21 ORDERING PHYSICIAN: WINSTON LOPEZ DO PROCEDURE(s): CXRP - CHEST PORTABLE REASON: dizzy, hypotension ORDER NUMBER(s): [id number], ACCESSION NUMBER(s): [id number] CHEST RADIOGRAPH Indication: dizzy, hypotension Technique: Single frontal view of the chest was obtained Comparison: XY CHEST PORTABLE on DOS: 11/26/24, XY CHEST PORTABLE on DOS: 08/09/24 FINDINGS: Lines and Tubes: None Lungs: No focal consolidation. Pleura: No effusion. No pneumothorax. Cardiomediastinal contours: Unremarkable Bones: No acute osseous abnormality. IMPRESSION: 1. Much improved pulmonary vascular congestion. ATED BY: RODERICK BAKER Jr., DO DICTATED DATE/TIME: 12/25/241705 SIGNED BY: RODERICK BAKER Jr., DO SIGNED DATE/TIME: 12/25/241705 CC: Time of 1ST Reevaluation: 16:20 Reevaluation 1ST: Unchanged Patient Education/Counseling: Diagnosis, Treatment Family Education/Counseling: No Family Present Comments MDM: patient presented with the above HPI.---dizziness and hypotension launch possible recurrent seizure---workup was initiated. patient was found with the above mentioned diagnosis. the following medications were ordered: please refer to order lists of meds and tests obtained by myself Dr. Lopez. Patient ED course and VS have been stabilized. Patient has been reassessed in the ED and remained in a stable condition. Pertinent incidental findings were discussed with the patient and/or family. Patient/family voices understanding and is agreeable with plan. Patient has been observed in the ED adequate length of time to insure improvement/stability. Escalation of care considered: Consideration of escalation to observation or admission Patient was discharged home in a stable condition. No seizure activity here in the ED. No seizure medications given because he just had it earlier today. Patient is back to his baseline. All the reports of any imaging studies that were ordered by myself were reviewed by myself. Departure 1 Departure Time of Disposition: 22:18 Impression: Primary Impression: Hypotensive episode Disposition: 01 HOME / SELF CARE / HOMELESS Condition: Stable Additional Instructions: Additional instructions: Please read all instructions provided in this packet carefully. You MUST follow-up with your primary care/family doctor in 1 to 2 days. If you are unable to see your primary care/family doctor, please return to our emergency room for re-assessment and re-evaluation in 1 to 2 days. Return to the emergency room here in our facility or to the nearest ER [facility] if your symptoms change or worsen. CONSULTATIONS: you MUST Follow-up for consultation as soon as possible with: -neurology and cardiology in 1-2 days. Please call for appointment. You MUST call the consultants office yourself to make an appointment. You may need to arrange that through your insurance and/or your primary/family doctor. If you are unable to see the contaminated land consultant in 1 to 2 days, you must return to our emergency room (or any other ER of your choice) for re-assessment and re- evaluation. Adequate fluid hydration. Although you have been discharged from the Emergency Department, this does not mean that you have a "clean bill of health". No definitive diagnosis for your symptoms has been made today. It is possible that you are in the process of developing a serious illness. This is why you must return to the ED without fail if any new or worsening symptoms develop. Monitoring blood pressure at home at least 3 times a day. Fall precautions. Below is a copy of your radiological report for follow up: [address] [address] Ph: [phone] DIAGNOSTIC IMAGING Diagnostic Imaging Report : [id number] Signed PATIENT: MARY JANE BRITT ACCT: [id number] UNIT: [id number] : 1950 LOC: ER ROOM / BED: / AGE / SEX: 74 / M ADM STATUS: REG ER SERVICE 1622 ORDERING PHYSICIAN: WINSTON LOPEZ DO PROCEDURE(s): HWOCT - HEAD WITHOUT CONTRAST REASON: dizzy, hypotension ORDER NUMBER(s): [id number], ACCESSION NUMBER(s): [id number] CLINICAL HISTORY: dizzy, hypotension TECHNIQUE: Helical scanning was performed of the head from the skull base to the vertex. Multiplanar reconstructions were performed. This exam was performed according to our departmental dose optimization program. Up-to-date CT equipment and radiation dose reduction techniques are utilized as appropriate. CTDI 54 DLP 869 COMPARISON: None FINDINGS: There is no evidence for acute intracranial hemorrhage, acute ischemic changes, mass, mass effect, or extra-axial fluid collection. There is no hydrocephalus or midline shift. There is no effacement of the cerebral sulci and basal subarachnoid cisterns. The alaniz-white matter differentiation is well maintained. There is mild brain volume loss and chronic small vessel ischemic change. There is a Small to moderate area of right lateral temporal lobe encephalomalacia. There is a small area of right anterior inferior frontal lobe encephalomalacia. Both findings are likely posttraumatic, given location. Scattered calcification within the brain are nonspecific finding, but can be seen the setting of prior neurocysticercosis infection. The imaged paranasal sinuses are clear. IMPRESSION: NO ACUTE INTRACRANIAL ABNORMALITY SEEN. ATED BY: DARREL GUAMAN MD DICTATED DATE/TIME: 12/25/241738 SIGNED BY: DARREL GUAMAN MD SIGNED DATE/TIME: 12/25/241738 CC: [address] [address] Ph: [phone] DIAGNOSTIC IMAGING Diagnostic Imaging Report : [id number] Signed PATIENT: MARY JANE BRITT ACCT: [id number] UNIT: [id number] : 1950 LOC: ER ROOM / BED: / AGE / SEX: 74 / M ADM STATUS: REG ER SERVICE 162 ORDERING PHYSICIAN: WINSTON LOPEZ DO PROCEDURE(s): CXRP - CHEST PORTABLE REASON: dizzy, hypotension ORDER NUMBER(s): [id number], ACCESSION NUMBER(s): [id number] CHEST RADIOGRAPH Indication: dizzy, hypotension Technique: Single frontal view of the chest was obtained Comparison: XY CHEST PORTABLE on DOS: 11/26/24, XY CHEST PORTABLE on DOS: 08/09/24 FINDINGS: Lines and Tubes: None Lungs: No focal consolidation. Pleura: No effusion. No pneumothorax. Cardiomediastinal contours: Unremarkable Bones: No acute osseous abnormality. IMPRESSION: 1. Much improved pulmonary vascular congestion. ATED BY: RODERICK BAKER Jr., DO DICTATED DATE/TIME: 12/25/241705 SIGNED BY: RODERICK BAKER Jr., SIGNED DATE/TIME: 12/25/241705 CC: Discharged With: Self Critical Care Note Critical Care Time?: No Heart Score Heart Score: Heart Score Response (Comments) Value History Slightly Suspicious 0 EKG Normal 0 Age >65 2 Risk Factors 1 or 2 risk factors 1 Troponin Normal limit 0 Total 3 I personally scribed for WINSTON LOPEZ DO ([email or web address]) on 12/25/24 at 15:59. Electronically submitted by Oanh Tsai ([email or web address]). I personally scribed for WINSTON LOPEZ DO ([email or web address]) on 12/25/24 at 18:10. Electronically submitted by Oanh Tsai ([email or web address]). WINSTON LOPEZ DO Dec 25, 2024 15:59
[2024-12-25 16:10] VITALS: O2SAT 89
--- NOTE | 2024-12-25 17:08 | DVH ---
CHEST RADIOGRAPH Indication: dizzy, hypotension Technique: Single frontal view of the chest was obtained Comparison: XY CHEST PORTABLE on DOS: 11/26/24, XY CHEST PORTABLE on DOS: 08/09/24 FINDINGS: Lines and Tubes: None Lungs: No focal consolidation. Pleura: No effusion. No pneumothorax. Cardiomediastinal contours: Unremarkable Bones: No acute osseous abnormality. IMPRESSION: 1. Much improved pulmonary vascular congestion.
[2024-12-25 17:42] LABS: Hematocrit 31.0 % (41.0-53.0); Hemoglobin 10.0 g/dL (13.5-17.5); Mean Corpuscular Hemoglobin 25.7 pg (28.0-32.0); Mean Corpuscular Volume 79.6 fL (80.0-100.0); Nucleated Red Blood Cells % 0.0 %
--- NOTE | 2024-12-25 17:42 | DVH ---
CLINICAL HISTORY: dizzy, hypotension TECHNIQUE: Helical scanning was performed of the head from the skull base to the vertex. Multiplanar reconstructions were performed. This exam was performed according to our departmental dose optimizat ion program. Up-to-date CT equipment and radiation dose reduction techniques are utilized as appropri ate. CTDI 54 DLP 869 COMPARISON: None FINDINGS: There is no evidence for acute intracranial hemorrhage, acute ischemic changes, mass, mass effect, or extra-axial fluid collection. There is no hydrocephalus or midline shift. There is no effacement of the cerebral sulci and basal subarachnoid cisterns. The alaniz-white matter differentiation is well ridge ntained. There is mild brain volume loss and chronic small vessel ischemic change. There is a Small to moderat e area of right lateral temporal lobe encephalomalacia. There is a small area of right anterior infe rior frontal lobe encephalomalacia. Both findings are likely posttraumatic, given location. Scattered calcification within the brain are nonspecific finding, but can be seen the setting of prior neurocy sticercosis infection. The imaged paranasal sinuses are clear. IMPRESSION: NO ACUTE INTRACRANIAL ABNORMALITY SEEN.
[2024-12-25 17:55] LABS: Alanine Aminotransferase 36 U/L (7-40); Albumin 4.0 g/dL (3.2-4.8); Alkaline Phosphatase 56 U/L (46-116); Anion Gap 9 (5-15); BUN/Creatinine Ratio 12.3 (10.0-20.0); Bilirubin, Total 0.4 mg/dL (0.2-1.0); Blood Urea Nitrogen 16 mg/dL (9-23); Calcium 8.8 mg/dL (8.7-10.4); Carbon Dioxide 27 mmol/L (20-31); Potassium 4.0 mmol/L (3.5-5.1); Sodium 144 mmol/L (136-145); Total Protein 6.4 g/dL (5.7-8.2)
[2024-12-25 17:57] LABS: Chloride 108 mmol/L (98-107); Glucose 115 mg/dL (74-106)
[2024-12-25 18:00] LABS: Lactic Acid w/Reflex 2.9 mmol/L (0.4-2.0)
--- NOTE | 2024-12-25 18:28 | ECG ---
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
[2024-12-25] MEDS: SODIUM CHLORIDE 0.9% 1,000 ML IV ONE (18:30)
[2024-12-25 19:30] VITALS: TEMP 98.4; O2SAT 96
[2024-12-25 22:00] VITALS: BP 147/105; PULSE 62; RESP 20; O2SAT 96
== END 2024-12-25 22:48 | disposition home or self-care (01) ==
LOC: EDBD 15:44 → ER 15:55
DX: R56.9 Unspecified convulsions (principal); E11.65 Type 2 diabetes mellitus with hyperglycemia; E11.649 Type 2 diabetes mellitus with hypoglycemia without coma; E11.22 Type 2 diabetes mellitus with diabetic chronic kidney disease; E78.5 Hyperlipidemia, unspecified; E86.0 Dehydration; E86.1 Hypovolemia; G61.0 Guillain-Barre syndrome; G45.0 Vertebro-basilar artery syndrome; G70.00 Myasthenia gravis without (acute) exacerbation; G93.41 Metabolic encephalopathy; H81.09 Meniere's disease, unspecified ear; I13.0 Hypertensive heart and chronic kidney disease with heart failure and stage 1 through stage 4 chronic kidney disease, or unspecified chronic kidney disease; I21.9 Acute myocardial infarction, unspecified; I25.10 Atherosclerotic heart disease of native coronary artery without angina pectoris; I26.99 Other pulmonary embolism without acute cor pulmonale; I49.9 Cardiac arrhythmia, unspecified; I50.9 Heart failure, unspecified; I63.9 Cerebral infarction, unspecified; I77.9 Disorder of arteries and arterioles, unspecified; J18.9 Pneumonia, unspecified organism; J44.0 Chronic obstructive pulmonary disease with (acute) lower respiratory infection; N17.0 Acute kidney failure with tubular necrosis; R09.02 Hypoxemia; I95.9 Hypotension, unspecified
CPT/HCPCS: 36415; 70450; 71045; 80053; 83605; 84484; 85025; 93005; 96360; 99285; J7030

== ENCOUNTER 2025-01-21 10:06 | Emergency (ER) | payer OTHER, MEDICAID ==
[~2025-01-21] VITALS: Ht 172.7 cm; Wt 82.0 kg
--- NOTE | 2025-01-21 10:52 | ECG ---
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
--- NOTE | 2025-01-21 11:15 | ED.PDOC ---
History of Present Illness HPI Comments 74 year old male with PMHx CAD, COPD, DM, HLD, HTN, seizures presents to the ED via EMS with a chief complaint of generalized weakness onset last night. Per EMS, patient's son stated patient was experiencing chest pain, currently patient denies chest pain. Patient states he was discharged from [facility] 2 days ago, was admitted due to chest pain, had IV placed on RT arm, shortly after began experienced erythema and swelling, was removed. Patient states since being home, he noticed RT arm swelling has worsened, painful to touch. He is also experiencing diarrhea. He took 324 mg Aspirin at home prior to EMS arrival. Denies chest pain, dizziness, fever, chills, nausea, vomiting, diarrhea, hea dache, shortness of breath, cough, cold, congestion. No other symptoms or modifying factors present at this time. Chief Complaint: General Weakness Time Seen by MD: 10:45 Primary Care Provider: unknown Reviewed Notes: Medications, Allergies Allergies: Coded Allergies: NO KNOWN ALLERGIES (Unverified , 08/09/24) Home Meds Active Scripts Ipratropium [place] Hfa (Atrovent Hfa) 17 Mcg Aer, 2 PUFF INH QID for 30 Days, #12.9 GRAMS 3 Refills Prov:EMANUEL FIORE 08/15/24 Insulin Lispro (Humalog Kwikpen) 100 Unit/Ml Inj, 10 UNIT SC TID for 30 Days, #5 INJ please apply 10 ui before each meal, if the patient will nor eat dont apply Prov:EMANUEL FIORE 08/15/24 Insulin Glargine (Basaglar Kwikpen) 100 Unit/Ml Inj, 26 UNIT SC DAILY for 30 Days, #3 INJ please apply 26 ui at night Prov:EMANUEL FIORE 08/15/24 Blood Glucose Monitoring Suppl (D-Care Glucometer Kit/Glu W/Device) 1 Kit Kit, KIT XX ACHS, #1 1 Refill please check sugars before meals and bedtime Prov:EMANUEL FIORE 08/15/24 Lancets Misc. (ACCU-CHEK FASTCLIX LANCET) Fastclix Kit, UNIT XX ACHS, #120 please check sugars before meals and bedtime Prov:EMANUEL FIORE 08/15/24 Ipratropium [place] Hfa (Atrovent Hfa) 17 Mcg Aer, 2 PUFF INH QID for 30 Days, #12.9 GRAMS 5 Refills Prov:EMANUEL FIORE 08/15/24 Albuterol Sulfate (VENTOLIN MDI) 90 Mcg Ih, 90 MCG IN Q8HR for 30 Days, #1 INH Prov:EMANUEL FIORE 08/14/24 Aspirin (Aspirin Low Dose) 81 Mg Tab, 81 MG PO DAILY for 90 Days, #90 TAB Prov:EMANUEL FIORE [facility] 08/14/24 Clopidogrel Bisulfate (CLOPIDOGREL) 75 Mg Tab, 75 MG PO DAILY for 90 Days, #90 TAB Prov:EMANUEL FIORE [facility] 08/14/24 Atorvastatin Calcium (ATORVASTATIN CALCIUM) 40 Mg Tab, 40 MG PO DAILY for 90 Days, #90 TAB Prov:EMANUEL FIORE [facility] 08/14/24 Apixaban Base (ELIQUIS) 5 Mg Tab, 5 MG PO BID for 90 Days, #180 TAB Prov:EMANUEL FIORE [facility] 08/14/24 Apixaban Base (ELIQUIS) 5 Mg Tab, 10 MG PO BID for 5 Days, #20 TAB Prov:EMANUEL FIORE [facility] 08/14/24 Acetaminophen (Acetaminophen) 325 Mg Tab, 325 MG PO Q6HP PRN for 10 Days, #40 TAB Prov:EMANUEL FIORE [facility] 08/14/24 Reported Medications Atorvastatin Calcium (ATORVASTATIN CALCIUM) 80 Mg Tab, 1 TAB PO DAILY, #30 TAB 5 Refills 08/10/24 Losartan Potassium (Losartan Potassium) 100 Mg Tab, 1 TAB PO DAILY, #30 TAB 5 Refills 08/10/24 Levetiracetam (Keppra) 1,000 Mg Tab, 1 TAB PO BID, #60 TAB 5 Refills 08/10/24 Information Source: Patient, Emergency Med Personnel Mode of Arrival: EMS Severity: Moderate Timing: Days Duration: Since onset Prehospital treatment: None Past Medical History PAST MEDICAL HISTORY: CAD, COPD, DM, High Lipids, HTN, Seizures Surgical History: Denies all surgeries Family History Family History: Reviewed,noncontributory to illness, No family hx of Cancer, No family hx of DM, No family hx of Heart blanquita, No family hx of HTN, No family hx ofKidney blanquita, No family hx of Liver blanquita, No family hx of Lung blanquita, No family hx of Stroke Social History Smoker: Non-Smoker Alcohol: Denies ETOH Use Drugs: Denies Drug Use Lives In: Home Constitutional: reports: weakness; denies: chills, diaphoresis, fatigue, fever, malaise, sweats, others EENTM: denies: blurred vision, double vision, ear bleeding, ear discharge, ear drainage, ear pain, ear ringing, eye pain, eye redness, hearing loss, mouth pain, mouth swelling, nasal discharge, nose bleeding, nose congestion, nose pain, photophobia, tearing, throat pain, throat swelling, voice changes, others Respiratory: denies: cough, hemoptysis, orthopnea, SOB at rest, shortness of breath, SOB with excertion, stridor, wheezing, others Cardiovascular: denies: chest pain, dizzy spells, diaphoresis, Dyspnea on exertion, edema, irregular heart beat, left arm pain, lightheadedness, palpitations, PND, syncope, others Gastrointestinal: reports: diarrhea; denies: abdomen distended, abdominal pain, blood streaked bowels, constipated, dysphagia, difficulty swallowing, hematemesis, melena, nausea, poor appetite, poor fluid intake, rectal bleeding, rectal pain, vomiting, others Genitourinary: denies: burning, dysuria, flank pain, frequency, hematuria, incontinence, penile discharge, penile sore, pain, testicle pain, testicle swelling, urgency, others Neurological: reports: weakness; denies: dizziness, fainting, headache, left sided numbness, left sided weakness, numbness, paresthesia, pre-existing deficit, right sided numbness, right sided weakness, seizure, speech problems, tingling, tremors, others Musculoskeletal: reports: others (RT arm swelling); denies: back pain, gout, joint pain, joint swelling, muscle pain, muscle stiffness, neck pain Integumetry: denies: bruises, change in color, change in hair/nails, dryness, laceration, lesions, lumps, rash, wounds, others Allergic/Immunocompromised: denies: Difficulty Healing, Frequent Infections, Hives, Itching, others Hematologic/Lymphatic: denies: anemia, blood clots, easy bleeding, easy bruising, swollen glands, others Endocrine: denies: excessive hunger, excessive sweating, excessive thirst, excessive urination, flushing, intolerance to cold, intolerance to heat, unexplained weight gain, unexplained weight loss, others Psychiatric: denies: anxiety, bipolar disorder, depression, hopeless, panic disorder, schizophrenia, sleepless, suicidal, others All Other Systems: Reviewed and Negative Physical Exam General Appearance: Normal HEENT: Normal ENT Inspection, Pharynx Normal, TMs Normal Neck: Full Range of Motion, Non-Tender, Normal, Normal Inspection Respiratory: Chest Non-Tender, Lungs Clear, No Accessory Muscle Use, No Respiratory Distress, Normal Breath Sounds Cardiovascular: No Edema, No JVD, No Murmur, No Gallop, Normal Peripheral Pulses, Regular Rate/Rhythm Breast Exam: Deferred Gastrointestinal: No Organomegaly, Non Tender, No Pulsatile Mass, Normal Bowel Sounds, Soft Genitalia: Deferred Pelvic: Deferred Rectal: Deferred Extremities: No calf tenderness, Normal capillary refill, Normal inspection, Normal range of motion, Non-tender, No pedal edema Musculoskeletal : Apperance: Normal Neurologic: Alert, bulldozer engineer II-XII nml as Tested, No Motor Deficits, Normal Affect, Normal Mood, No Sensory Deficits Cerebellar Function: Normal Reflexes: Normal Skin: Dry, Normal Color, Warm Lymphatic: No Adenopathy Was a procedure done? Was a procedure done?: No Differential Dx Considerations may include: ACS given CVA, viral syndrome COVID electrolyte abnormality, hematoma X-Ray, Labs, Meds, VS Vital Signs Date Time Temp Pulse Resp B/P (MAP) Pulse Ox O2 Delivery O2 Flow Rate FiO2 01/21/25 10:08 60 01/21/25 10:06 98.2 62 18 137/48 98 98.2 Lab Test 01/21/25 13:18 01/21/25 13:03 01/21/25 11:57 01/21/25 10:52 Range/Units White Blood Count 10.3 4.4-10.8 10^3/uL Red Blood Count 3.36 L 4.5-5.90 10^6/uL Hemoglobin 9.0 L 13.5-17.5 g/dL Hematocrit 27.6 L 41.0-53.0 % Mean Corpuscular Volume 82.1 80.0-100.0 fL Mean Corpuscular Hemoglobin 26.7 L 28.0-32.0 pg Mean Corpuscular Hemoglobin Concent 32.5 32.0-36.0 g/dL Red Cell Distribution Width 17.5 H 11.8-14.3 % Platelet Count 265 140-450 10^3/uL Mean Platelet Volume 8.0 6.9-10.8 fL Neutrophils (%) (Auto) 89.3 H 37.0-80.0 % Lymphocytes (%) (Auto) 6.0 L 10.0-50.0 % Monocytes (%) (Auto) 4.4 0.0-12.0 % Eosinophils (%) (Auto) 0.1 0.0-7.0 % Basophils (%) (Auto) 0.2 0.0-2.0 % Neutrophils # (Auto) 9.2 H 1.6-8.6 10 ^3/uL Lymphocytes # (Auto) 0.6 0.4-5.4 10 ^3/uL Monocytes # (Auto) 0.5 0-1.3 10 ^3/uL Eosinophils # (Auto) 0 0-0.8 10 ^3/uL Basophils # (Auto) 0 0-0.2 10 ^3/uL Nucleated Red Blood Cells 0.0 % Troponin I High Sensitivity 13 14 14 </=54 ng/L POC Glucose 231 H 70-106 mg/dl Sodium Level 138 136-145 mmol/L Potassium Level 4.1 3.5-5.1 mmol/L Chloride Level 99 98-107 mmol/L Carbon Dioxide Level 28 20-31 mmol/L Anion Gap 11 5-15 Blood Urea Nitrogen 23 9-23 mg/dL Creatinine 1.56 H 0.700-1.30 mg/dL Glomerular Filtration Rate Calc 46 >90 mL/min BUN/Creatinine Ratio 14.7 10.0-20.0 Serum Glucose 184 H 74-106 mg/dL Calcium Level 9.5 8.7-10.4 mg/dL [place] [id number] Ph: [phone] DIAGNOSTIC IMAGING Diagnostic Imaging Report : [id number] Signed PATIENT: MARY JANE BRITT ACCT: [id number] UNIT: [id number] : 1950 LOC: ER ROOM / BED: / AGE / SEX: 74 / M ADM STATUS: REG ER SERVICE [id number] ORDERING PHYSICIAN: DANIELLE BHANDARI MD PROCEDURE(s): CXRP - CHEST PORTABLE REASON: weakness ORDER NUMBER(s): [id number], ACCESSION NUMBER(s): [id number] INDICATION: weakness TECHNIQUE: Frontal view of the chest. COMPARISON: XY CHEST PORTABLE on DOS: 12/25/24, XY CHEST PORTABLE on DOS: , XY CHEST PORTABLE on DOS: 08/09/24 FINDINGS: . The heart and mediastinal contours are grossly unremarkable. There is no evidence of pleural disease. The lungs are clear. The bony structures of the chest are intact without fracture. IMPRESSION: 1. No evidence of acute disease. ATED BY: MANSOOR PATEL MD DICTATED DATE/TIME: 01/21/251150 SIGNED BY: MANSOOR PATEL MD SIGNED DATE/TIME: 01/21/251150 CC: Time of 1ST Reevaluation: 11:15 Reevaluation 1ST: Unchanged Patient Education/Counseling: Diagnosis, Treatment, Prognosis Family Education/Counseling: No Family Present SEPSIS Sepsis Screen Date sepsis recognized/suspect: Jan 21, 2025 Time Sepsis recognized/suspect: 1026 Recent Procedure: No On Antibiotic Therapy: No Respiratory Rate >20: No Heart Rate >90: No Temp<36 C (96.8 F) or >38.3 C: No SBP <90 or MAP <65 mmHG: No New Acute Mental Status Change: No Is the patient on CPAP, BIPAP,: No Physician Orders Electrocardigram (01/21/25 11:16) Chest Portable (01/21/25 11:16) Urinalysis (01/21/25 11:16) Electrocardigram (01/21/25 12:16) Electrocardigram (01/21/25 14:16) Vital Signs Date Time Temp Pulse Resp B/P (MAP) Pulse Ox O2 Delivery O2 Flow Rate FiO2 01/21/25 10:08 60 01/21/25 10:06 98.2 62 18 137/48 98 98.2 Laboratory Tests Test 01/21/25 13:18 White Blood Count 10.3 10^3/uL (4.4-10.8) Departure 1 Departure Time of Disposition: 15:37 (Patient likely with a hematoma of the arm.) Impression: Primary Impression: Hematoma Disposition: 01 HOME / SELF CARE / HOMELESS Condition: Stable Additional Instructions: Your workup today was benign. It is important to follow up with the regular doc tors. If your symptoms worsen or if any other concerns please return to the emergency room Discharged With: Self Critical Care Note Critical Care Time?: No Stability Stability form required: No Heart Score Heart Score: Heart Score Response (Comments) Value History N/A 0 EKG N/A 0 Age N/A 0 Risk Factors N/A 0 Troponin N/A 0 Total 0 I personally scribed for DANIELLE BHANDARI MD ([email or web address]) on 01/21/25 at 11:15. Electronically submitted by Oanh Tsai ([email or web address]). I personally scribed for DANIELLE BHANDARI MD ([email or web address]) on 01/21/25 at 11:59. Electronically submitted by Oanh Tsai ([email or web address]). DANIELLE BHANDARI MD Jan 21, 2025 11:15
--- NOTE | 2025-01-21 11:53 | DVH ---
INDICATION: weakness TECHNIQUE: Frontal view of the chest. COMPARISON: XY CHEST PORTABLE on DOS: 12/25/24, XY CHEST PORTABLE on DOS: 11/26/24, XY CHEST PORTABLE on DOS: 08/09/24 FINDINGS: . The heart and mediastinal contours are grossly unremarkable. There is no evidence of pleural disease. The lungs are clear. The bony structures of the chest are intact without fracture. IMPRESSION: 1. No evidence of acute disease.
[2025-01-21 12:19] LABS: Anion Gap 11 (5-15); Carbon Dioxide 28 mmol/L (20-31); Chloride 99 mmol/L (98-107); Potassium 4.1 mmol/L (3.5-5.1); Sodium 138 mmol/L (136-145)
[2025-01-21 12:21] LABS: Calcium 9.5 mg/dL (8.7-10.4)
[2025-01-21 12:27] LABS: Glucose 184 mg/dL (74-106)
[2025-01-21 12:28] LABS: BUN/Creatinine Ratio 14.7 (10.0-20.0); Blood Urea Nitrogen 23 mg/dL (9-23)
[2025-01-21 13:53] LABS: Hemoglobin 9.0 g/dL (13.5-17.5); Nucleated Red Blood Cells % 0.0 %
[2025-01-21 13:56] LABS: Hematocrit 27.6 % (41.0-53.0); Mean Corpuscular Hemoglobin 26.7 pg (28.0-32.0); Mean Corpuscular Volume 82.1 fL (80.0-100.0)
[2025-01-21 17:04] VITALS: BP 126/53; PULSE 53; RESP 16; TEMP 97.4; O2SAT 95
== END 2025-01-21 17:10 | disposition home or self-care (01) ==
LOC: ER 10:06 → EDBD 10:06 → ER 17:10
DX: S40.021A Contusion of right upper arm, initial encounter (principal); E78.5 Hyperlipidemia, unspecified; E11.9 Type 2 diabetes mellitus without complications; I10 Essential (primary) hypertension; I25.10 Atherosclerotic heart disease of native coronary artery without angina pectoris; J44.9 Chronic obstructive pulmonary disease, unspecified; Z79.899 Other long term (current) drug therapy; Z79.82 Long term (current) use of aspirin; Z79.4 Long term (current) use of insulin; Z79.02 Long term (current) use of antithrombotics/antiplatelets; Z79.01 Long term (current) use of anticoagulants; X08.8XXA Exposure to other specified smoke, fire and flames, initial encounter; Y93.89 Activity, other specified; Y92.89 Other specified places as the place of occurrence of the external cause; Y99.8 Other external cause status
CPT/HCPCS: 36415; 71045; 80048; 82947; 82962; 84484; 85025; 93005

== ENCOUNTER 2025-02-05 16:16 | Emergency (ER) | payer OTHER, MEDICAID ==
[~2025-02-05] VITALS: Ht 165.1 cm; Wt 70.4 kg
--- NOTE | 2025-02-05 16:43 | ED.PDOC ---
GI ASSESSMENT HPI Comments 74-year-old male with a past medical history of CAD, COPD, DM, HLD, HTN, seizure sinus in the ED via EMS with a chief complaint of abdominal pain onset 1 day. Per EMS, Patient has been experiencing abdominal pain near umbilical region for the past day as well as abdominal distension, nausea. Patient states he experienced lightheadedness when standing. Upon EMS arrival pain was 10/10, in route pain improved to a 6/10. Denies fever, chills, headache, dizziness, dysuria, hematuria, blurred vision, hematemesis, melena, blood in stool, headache. No other symptoms or modifying factors present at this time. Chief Complaint: Abdominal Pain Time Seen by MD: 16:30 Primary Care Provider: unknown Reviewed Notes: Medications, Allergies Allergies: Coded Allergies: NO KNOWN ALLERGIES (Unverified , 08/09/24) Home Meds Active Scripts Ipratropium [place] Hfa (Atrovent Hfa) 17 Mcg Aer, 2 PUFF INH QID for 30 Days, #12.9 GRAMS 3 Refills Prov:EMANUEL FIORE 08/15/24 Insulin Lispro (Humalog Kwikpen) 100 Unit/Ml Inj, 10 UNIT SC TID for 30 Days, #5 INJ please apply 10 ui before each meal, if the patient will nor eat dont apply Prov:EMANUEL FIORE 08/15/24 Insulin Glargine (Basaglar Kwikpen) 100 Unit/Ml Inj, 26 UNIT SC DAILY for 30 Days, #3 INJ please apply 26 ui at night Prov:EMANUEL FIORE 08/15/24 Blood Glucose Monitoring Suppl (D-Care Glucometer Kit/Glu W/Device) 1 Kit Kit, KIT XX ACHS, #1 1 Refill please check sugars before meals and bedtime Prov:EMANUEL FIORE 08/15/24 Lancets Misc. (ACCU-CHEK FASTCLIX LANCET) Fastclix Kit, UNIT XX ACHS, #120 please check sugars before meals and bedtime Prov:EMANUEL FIORE 08/15/24 Ipratropium [place] Hfa (Atrovent Hfa) 17 Mcg Aer, 2 PUFF INH QID for 30 Days, #12.9 GRAMS 5 Refills Prov:EMANUEL FIORE 08/15/24 Albuterol Sulfate (VENTOLIN MDI) 90 Mcg Ih, 90 MCG IN Q8HR for 30 Days, #1 INH Prov:EMANUEL FIORE 08/14/24 Aspirin (Aspirin Low Dose) 81 Mg Tab, 81 MG PO DAILY for 90 Days, #90 TAB Prov:EMANUEL FIORE [facility] 08/14/24 Clopidogrel Bisulfate (CLOPIDOGREL) 75 Mg Tab, 75 MG PO DAILY for 90 Days, #90 TAB Prov:EMANUEL FIORE 08/14/24 Atorvastatin Calcium (ATORVASTATIN CALCIUM) 40 Mg Tab, 40 MG PO DAILY for 90 Days, #90 TAB Prov:EMANUEL FIORE [facility] 08/14/24 Apixaban Base (ELIQUIS) 5 Mg Tab, 5 MG PO BID for 90 Days, #180 TAB Prov:EMANUEL FIORE 08/14/24 Apixaban Base (ELIQUIS) 5 Mg Tab, 10 MG PO BID for 5 Days, #20 TAB Prov:EMANUEL FIORE [facility] 08/14/24 Acetaminophen (Acetaminophen) 325 Mg Tab, 325 MG PO Q6HP PRN for 10 Days, #40 TAB Prov:EMANUEL FIORE [facility] 08/14/24 Reported Medications Atorvastatin Calcium (ATORVASTATIN CALCIUM) 80 Mg Tab, 1 TAB PO DAILY, #30 TAB 5 Refills 08/10/24 Losartan Potassium (Losartan Potassium) 100 Mg Tab, 1 TAB PO DAILY, #30 TAB 5 Refills 08/10/24 Levetiracetam (Keppra) 1,000 Mg Tab, 1 TAB PO BID, #60 TAB 5 Refills 08/10/24 Information Source: Patient, Emergency Med Personnel Mode of Arrival: EMS Timing: Days Duration: Since onset Prehospital treatment: None Quality: Sharp Vomitus: None Severity: Moderate Recent: None Recent Hx of: None Pain Location: Periumbilical Modifying Factors: Nothing Associated sign and symptoms: Nausea, Abdominal Pain Past Medical History PAST MEDICAL HISTORY: CAD, COPD, DM, High Lipids, HTN, Seizures Surgical History: Appendectomy Family History Family History: Reviewed,noncontributory to illness, No family hx of Cancer, No family hx of DM, No family hx of Heart blanquita, No family hx of HTN, No family hx ofKidney blanquita, No family hx of Liver blanquita, No family hx of Lung blanquita, No family hx of Stroke Social History Smoker: Non-Smoker Alcohol: Denies ETOH Use Drugs: Denies Drug Use Lives In: Home Constitutional: denies: chills, diaphoresis, fatigue, fever, malaise, sweats, weakness, others EENTM: denies: blurred vision, double vision, ear bleeding, ear discharge, ear drainage, ear pain, ear ringing, eye pain, eye redness, hearing loss, mouth pain, mouth swelling, nasal discharge, nose bleeding, nose congestion, nose pain, photophobia, tearing, throat pain, throat swelling, voice changes, others Respiratory: denies: cough, hemoptysis, orthopnea, SOB at rest, shortness of breath, SOB with excertion, stridor, wheezing, others Cardiovascular: denies: chest pain, dizzy spells, diaphoresis, Dyspnea on exertion, edema, irregular heart beat, left arm pain, lightheadedness, palpitations, PND, syncope, others Gastrointestinal: reports: abdomen distended, abdominal pain, nausea; denies: blood streaked bowels, constipated, diarrhea, dysphagia, difficulty swallowing, hematemesis, melena, poor appetite, poor fluid intake, rectal bleeding, rectal pain, vomiting, others Genitourinary: denies: burning, dysuria, flank pain, frequency, hematuria, incontinence, penile discharge, penile sore, pain, testicle pain, testicle swelling, urgency, others Neurological: reports: others (lightheadedness); denies: dizziness, fainting, headache, left sided numbness, left sided weakness, numbness, paresthesia, pre- existing deficit, right sided numbness, right sided weakness, seizure, speech problems, tingling, tremors, weakness Musculoskeletal: denies: back pain, gout, joint pain, joint swelling, muscle pain, muscle stiffness, neck pain, others Integumetry: denies: bruises, change in color, change in hair/nails, dryness, laceration, lesions, lumps, rash, wounds, others Allergic/Immunocompromised: denies: Difficulty Healing, Frequent Infections, Hives, Itching, others Hematologic/Lymphatic: denies: anemia, blood clots, easy bleeding, easy bruising, swollen glands, others Endocrine: denies: excessive hunger, excessive sweating, excessive thirst, excessive urination, flushing, intolerance to cold, intolerance to heat, unexplained weight gain, unexplained weight loss, others Psychiatric: denies: anxiety, bipolar disorder, depression, hopeless, panic disorder, schizophrenia, sleepless, suicidal, others All Other Systems: Reviewed and Negative Physical Exam General Appearance: Normal HEENT: Normal ENT Inspection, Pharynx Normal, TMs Normal Neck: Full Range of Motion, Non-Tender, Normal, Normal Inspection Respiratory: Chest Non-Tender, Lungs Clear, No Accessory Muscle Use, No Respiratory Distress, Normal Breath Sounds Cardiovascular: No Edema, No JVD, No Murmur, No Gallop, Normal Peripheral Pulses, Regular Rate/Rhythm Breast Exam: Deferred Gastrointestinal: Diffuse (low abdomen tenderness), No Organomegaly, Tenderness (low abdomen), Other (scare below umbilical region, secondary to appendectomy as a child) Genitalia: Deferred Pelvic: Deferred Rectal: Deferred Extremities: No calf tenderness, Normal capillary refill, Normal inspection, Normal range of motion, Non-tender, No pedal edema Musculoskeletal : Apperance: Normal Neurologic: Alert, shopfitter II-XII nml as Tested, No Motor Deficits, Normal Affect, Normal Mood, No Sensory Deficits Cerebellar Function: Normal Reflexes: Normal Skin: Dry, Normal Color, Warm Lymphatic: No Adenopathy Was a procedure done? Was a procedure done?: No X-Ray, Labs, Meds, VS Vital Signs Date Time Temp Pulse Resp B/P (MAP) Pulse Ox O2 Delivery O2 Flow Rate FiO2 02/05/25 16:20 98.1 61 17 161/61 95 98.1 Lab Test 02/05/25 16:48 Range/Units White Blood Count Pending Red Blood Count Pending Hemoglobin Pending Hematocrit Pending Mean Corpuscular Volume Pending Mean Corpuscular Hemoglobin Pending Mean Corpuscular Hemoglobin Concent Pending Red Cell Distribution Width Pending Platelet Count Pending Mean Platelet Volume Pending Neutrophils (%) (Auto) Pending Lymphocytes (%) (Auto) Pending Monocytes (%) (Auto) Pending Basophils (%) (Auto) Pending Neutrophils # (Auto) Pending Lymphocytes # (Auto) Pending Monocytes # (Auto) Pending Sodium Level Pending Potassium Level Pending Chloride Level Pending Carbon Dioxide Level Pending Anion Gap Pending Blood Urea Nitrogen Pending Creatinine Pending Glomerular Filtration Rate Calc Pending BUN/Creatinine Ratio Pending Serum Glucose Pending Calcium Level Pending Total Bilirubin Pending Aspartate Amino Transferase (AST) Pending Alanine Aminotransferase (ALT) Pending Alkaline Phosphatase Pending Total Protein Pending Albumin Pending Lipase Pending Time of 1ST Reevaluation: 17:00 Reevaluation 1ST: Unchanged Patient Education/Counseling: Diagnosis, Treatment, Prognosis Family Education/Counseling: No Family Present SEPSIS Sepsis Screen Physician Orders Complete Blood Count (02/05/25 16:34) Comprehensive Metabolic Panel (02/05/25 16:34) Lipase (02/05/25 16:34) Urinalysis (02/05/25 16:34) Ct Ab Pel Wo Con-No Oral Or Iv (02/05/25 16:34) Vital Signs Date Time Temp Pulse Resp B/P (MAP) Pulse Ox O2 Delivery O2 Flow Rate FiO2 02/05/25 16:20 98.1 61 17 161/61 95 98.1 Laboratory Tests Test 02/05/25 16:48 White Blood Count Pending Critical Care Note Critical Care Time?: No Stability Stability form required: No Heart Score Heart Score: Heart Score Response (Comments) Value History N/A 0 EKG N/A 0 Age N/A 0 Risk Factors N/A 0 Troponin N/A 0 Total 0 I personally scribed for GERI KIRAN MD ([email or web address]) on 02/05/25 at 16:43. Electronically submitted by Oanh Tsai ([email or web address]). I personally scribed for GERI KIRAN MD ([email or web address]) on 02/05/25 at 16:59. Electronically submitted by Oanh Tsai ([email or web address]). GERI KIRAN MD Feb 05, 2025 16:43
--- NOTE | 2025-02-05 17:01 | ED.PDOC ---
GI ASSESSMENT HPI Comments 74-year-old male with a past medical history of CAD, COPD, DM, HLD, HTN, seizure sinus in the ED via EMS with a chief complaint of abdominal pain onset 1 day. Per EMS, Patient has been experiencing abdominal pain near umbilical region for the past day as well as abdominal distension, nausea. Patient states he experienced lightheadedness when standing. Upon EMS arrival pain was 10/10, in route pain improved to a 6/10. Denies fever, chills, headache, dizziness, dysuria, hematuria, blurred vision, hematemesis, melena, blood in stool, headache. No other symptoms or modifying factors present at this time. Chief Complaint: Abdominal Pain Time Seen by MD: 16:30 Primary Care Provider: unknown Reviewed Notes: Medications, Allergies Allergies: Coded Allergies: NO KNOWN ALLERGIES (Unverified , 08/09/24) Home Meds Active Scripts Ipratropium [place] Hfa (Atrovent Hfa) 17 Mcg Aer, 2 PUFF INH QID for 30 Days, #12.9 GRAMS 3 Refills Prov:EMANUEL FIORE 08/15/24 Insulin Lispro (Humalog Kwikpen) 100 Unit/Ml Inj, 10 UNIT SC TID for 30 Days, #5 INJ please apply 10 ui before each meal, if the patient will nor eat dont apply Prov:EMANUEL FIORE 08/15/24 Insulin Glargine (Basaglar Kwikpen) 100 Unit/Ml Inj, 26 UNIT SC DAILY for 30 Days, #3 INJ please apply 26 ui at night Prov:EMANUEL FIORE 08/15/24 Blood Glucose Monitoring Suppl (D-Care Glucometer Kit/Glu W/Device) 1 Kit Kit, KIT XX ACHS, #1 1 Refill please check sugars before meals and bedtime Prov:EMANUEL FIORE 08/15/24 Lancets Misc. (ACCU-CHEK FASTCLIX LANCET) Fastclix Kit, UNIT XX ACHS, #120 please check sugars before meals and bedtime Prov:EMANUEL FIORE 08/15/24 Ipratropium Ball [place] Hfa (Atrovent Hfa) 17 Mcg Aer, 2 PUFF INH QID for 30 Days, #12.9 GRAMS 5 Refills Prov:EMANUEL FIORE 08/15/24 Albuterol Sulfate (VENTOLIN MDI) 90 Mcg Ih, 90 MCG IN Q8HR for 30 Days, #1 INH Prov:EMANUEL FIORE 08/14/24 Aspirin (Aspirin Low Dose) 81 Mg Tab, 81 MG PO DAILY for 90 Days, #90 TAB Prov:EMANUEL FIORE [facility] 08/14/24 Clopidogrel Bisulfate (CLOPIDOGREL) 75 Mg Tab, 75 MG PO DAILY for 90 Days, #90 TAB Prov:EMANUEL FIORE 08/14/24 Atorvastatin Calcium (ATORVASTATIN CALCIUM) 40 Mg Tab, 40 MG PO DAILY for 90 Days, #90 TAB Prov:EMANUEL FIORE [facility] 08/14/24 Apixaban Base (ELIQUIS) 5 Mg Tab, 5 MG PO BID for 90 Days, #180 TAB Prov:EMANUEL FIORE [facility] 08/14/24 Apixaban Base (ELIQUIS) 5 Mg Tab, 10 MG PO BID for 5 Days, #20 TAB Prov:EMANUEL FIORE [facility] 08/14/24 Acetaminophen (Acetaminophen) 325 Mg Tab, 325 MG PO Q6HP PRN for 10 Days, #40 TAB Prov:EMANUEL FIORE [facility] 08/14/24 Reported Medications Atorvastatin Calcium (ATORVASTATIN CALCIUM) 80 Mg Tab, 1 TAB PO DAILY, #30 TAB 5 Refills 08/10/24 Losartan Potassium (Losartan Potassium) 100 Mg Tab, 1 TAB PO DAILY, #30 TAB 5 Refills 08/10/24 Levetiracetam (Keppra) 1,000 Mg Tab, 1 TAB PO BID, #60 TAB 5 Refills 08/10/24 Information Source: Patient, Emergency Med Personnel Mode of Arrival: EMS Timing: Days Duration: Since onset Prehospital treatment: None Quality: Sharp Vomitus: None Severity: Moderate Recent: None Recent Hx of: None Pain Location: Diffuse Modifying Factors: Nothing Associated sign and symptoms: Nausea, Abdominal Pain Past Medical History PAST MEDICAL HISTORY: CAD, COPD, DM, High Lipids, HTN, Seizures Surgical History: Appendectomy Family History Family History: Reviewed,noncontributory to illness, No family hx of Cancer, No family hx of DM, No family hx of Heart blanquita, No family hx of HTN, No family hx ofKidney blanquita, No family hx of Liver blanquita, No family hx of Lung blanquita, No family hx of Stroke Social History Smoker: Non-Smoker Alcohol: Denies ETOH Use Drugs: Denies Drug Use Lives In: Home Constitutional: denies: chills, diaphoresis, fatigue, fever, malaise, sweats, weakness, others EENTM: denies: blurred vision, double vision, ear bleeding, ear discharge, ear drainage, ear pain, ear ringing, eye pain, eye redness, hearing loss, mouth pain, mouth swelling, nasal discharge, nose bleeding, nose congestion, nose pain, photophobia, tearing, throat pain, throat swelling, voice changes, others Respiratory: denies: cough, hemoptysis, orthopnea, SOB at rest, shortness of breath, SOB with excertion, stridor, wheezing, others Cardiovascular: denies: chest pain, dizzy spells, diaphoresis, Dyspnea on exertion, edema, irregular heart beat, left arm pain, lightheadedness, palpitations, PND, syncope, others Gastrointestinal: reports: abdomen distended, abdominal pain, nausea; denies: blood streaked bowels, constipated, diarrhea, dysphagia, difficulty swallowing, hematemesis, melena, poor appetite, poor fluid intake, rectal bleeding, rectal pain, vomiting, others Genitourinary: denies: burning, dysuria, flank pain, frequency, hematuria, incontinence, penile discharge, penile sore, pain, testicle pain, testicle swelling, urgency, others Neurological: denies: dizziness, fainting, headache, left sided numbness, left sided weakness, numbness, paresthesia, pre-existing deficit, right sided numbness, right sided weakness, seizure, speech problems, tingling, tremors, weakness, others Musculoskeletal: denies: back pain, gout, joint pain, joint swelling, muscle pain, muscle stiffness, neck pain, others Integumetry: denies: bruises, change in color, change in hair/nails, dryness, laceration, lesions, lumps, rash, wounds, others Allergic/Immunocompromised: denies: Difficulty Healing, Frequent Infections, Hives, Itching, others Hematologic/Lymphatic: denies: anemia, blood clots, easy bleeding, easy bruising, swollen glands, others Endocrine: denies: excessive hunger, excessive sweating, excessive thirst, excessive urination, flushing, intolerance to cold, intolerance to heat, unexplained weight gain, unexplained weight loss, others Psychiatric: denies: anxiety, bipolar disorder, depression, hopeless, panic disorder, schizophrenia, sleepless, suicidal, others All Other Systems: Reviewed and Negative Physical Exam General Appearance: Normal HEENT: Normal ENT Inspection, Pharynx Normal, TMs Normal Neck: Full Range of Motion, Non-Tender, Normal, Normal Inspection Respiratory: Chest Non-Tender, Lungs Clear, No Accessory Muscle Use, No Respiratory Distress, Normal Breath Sounds Cardiovascular: No Edema, No JVD, No Murmur, No Gallop, Normal Peripheral Pulses, Regular Rate/Rhythm Breast Exam: Deferred Gastrointestinal: Diffuse (lower abdominal pain), No Organomegaly, Normal Bowel Sounds, Tenderness (lower abdomen), Other (scare below umbilical region, secondary to appendectomy as a child) Genitalia: Deferred Pelvic: Deferred Rectal: Deferred Extremities: No calf tenderness, Normal capillary refill, Normal inspection, Normal range of motion, Non-tender, No pedal edema Musculoskeletal : Apperance: Normal Neurologic: Alert, 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 Was a procedure done?: No GI differential Dx Differential Diagnosis: Bowel Obstruction, Cholecystitis, Gastritis/PUD, Gastroenteritis X-Ray, Labs, Meds, VS Vital Signs Date Time Temp Pulse Resp B/P (MAP) Pulse Ox O2 Delivery O2 Flow Rate FiO2 02/05/25 18:12 98.0 53 18 124/62 (82) 100 98.0 02/05/25 16:26 52 02/05/25 16:20 98.1 61 17 161/61 95 98.1 Lab Test 02/05/25 16:48 Range/Units White Blood Count 11.6 H 4.4-10.8 10^3/uL Red Blood Count 3.40 L 4.5-5.90 10^6/uL Hemoglobin 8.8 L 13.5-17.5 g/dL Hematocrit 27.7 L 41.0-53.0 % Mean Corpuscular Volume 81.4 80.0-100.0 fL Mean Corpuscular Hemoglobin 26.0 L 28.0-32.0 pg Mean Corpuscular Hemoglobin Concent 32.0 32.0-36.0 g/dL Red Cell Distribution Width 17.2 H 11.8-14.3 % Platelet Count 345 140-450 10^3/uL Mean Platelet Volume 7.2 6.9-10.8 fL Neutrophils (%) (Auto) 75.0 37.0-80.0 % Lymphocytes (%) (Auto) 16.3 10.0-50.0 % Monocytes (%) (Auto) 7.6 0.0-12.0 % Eosinophils (%) (Auto) 0.9 0.0-7.0 % Basophils (%) (Auto) 0.2 0.0-2.0 % Neutrophils # (Auto) 8.7 H 1.6-8.6 10 ^3/uL Lymphocytes # (Auto) 1.9 0.4-5.4 10 ^3/uL Monocytes # (Auto) 0.9 0-1.3 10 ^3/uL Eosinophils # (Auto) 0.1 0-0.8 10 ^3/uL Basophils # (Auto) 0 0-0.2 10 ^3/uL Nucleated Red Blood Cells 0.1 % Sodium Level 144 136-145 mmol/L Potassium Level 4.4 3.5-5.1 mmol/L Chloride Level 104 98-107 mmol/L Carbon Dioxide Level 31 20-31 mmol/L Anion Gap 9 5-15 Blood Urea Nitrogen 23 9-23 mg/dL Creatinine 0.95 0.700-1.30 mg/dL Glomerular Filtration Rate Calc 83 >90 mL/min BUN/Creatinine Ratio 24.2 H 10.0-20.0 Serum Glucose 127 H 74-106 mg/dL Calcium Level 9.8 8.7-10.4 mg/dL Total Bilirubin < 0.2 L 0.2-1.0 mg/dL Aspartate Amino Transferase (AST) 25 13-40 U/L Alanine Aminotransferase (ALT) 39 7-40 U/L Alkaline Phosphatase 55 46-116 U/L Total Protein 6.1 5.7-8.2 g/dL Albumin 4.0 3.2-4.8 g/dL Lipase 27 12-53 U/L X-Ray, Labs, Meds, VS Comment Spoke with Dr. Frank at [facility], he states that patient does have a history of gastroparesis. He states that if patient did have bowel movement and there was no concerns of obstruction the patient may be discharged home they will follow up outside hospital. Patient was assessed and upon assessment patient states he had three bowel movements in the bathroom he does feel improvement in his stomach. Patient is a can not tolerate p.o. fluids. Patient be discharged home and will follow up with [facility] Authorization number [id number] Time of 1ST Reevaluation: 17:00 Reevaluation 1ST: Unchanged Patient Education/Counseling: Diagnosis, Treatment, Prognosis, Need For Follow Up (Follow up with PCP tomorrow. Return to the emergency department if symptoms worsen.) Family Education/Counseling: No Family Present SEPSIS Sepsis Screen Date sepsis recognized/suspect: Feb 05, 2025 Time Sepsis recognized/suspect: 1616 Recent Procedure: No On Antibiotic Therapy: No Respiratory Rate >20: No Heart Rate >90: No Temp<36 C (96.8 F) or >38.3 C: No SBP <90 or MAP <65 mmHG: No New Acute Mental Status Change: No Is the patient on CPAP, BIPAP,: No Physician Orders Urinalysis (02/05/25 16:34) Ct Ab Pel Wo Con-No Oral Or Iv (02/05/25 16:34) Electrocardigram (02/05/25 17:07) Vital Signs Date Time Temp Pulse Resp B/P (MAP) Pulse Ox O2 Delivery O2 Flow Rate FiO2 02/05/25 18:12 98.0 53 18 124/62 (82) 100 98.0 02/05/25 16:26 52 02/05/25 16:20 98.1 61 17 161/61 95 98.1 Laboratory Tests Test 02/05/25 16:48 White Blood Count 11.6 10^3/uL (4.4-10.8) H Departure 1 Departure Time of Disposition: 17:00 Impression: Primary Impression: Gastritis Qualified Codes: K29.30 - Chronic superficial gastritis without bleeding Additional Impression: Non-specific colitis Disposition: 01 HOME / SELF CARE / HOMELESS Condition: Stable Discharged With: Self Critical Care Note Critical Care Time?: No Stability Stability form required: No Heart Score Heart Score: Heart Score Response (Comments) Value History N/A 0 EKG N/A 0 Age N/A 0 Risk Factors N/A 0 Troponin N/A 0 Total 0 I personally scribed for ERICA HORVATH ([email or web address]) on 02/05/25 at 17:01. Electronically submitted by Oanh Tsai ([email or web address]). ERICA HORVATH [facility] Feb 05, 2025 17:01
[2025-02-05 17:03] LABS: Hematocrit 27.7 % (41.0-53.0); Hemoglobin 8.8 g/dL (13.5-17.5); Mean Corpuscular Hemoglobin 26.0 pg (28.0-32.0); Mean Corpuscular Volume 81.4 fL (80.0-100.0); Nucleated Red Blood Cells % 0.1 %
[2025-02-05 17:18] LABS: Alanine Aminotransferase 39 U/L (7-40); Albumin 4.0 g/dL (3.2-4.8); Alkaline Phosphatase 55 U/L (46-116); Anion Gap 9 (5-15); BUN/Creatinine Ratio 24.2 (10.0-20.0); Calcium 9.8 mg/dL (8.7-10.4); Carbon Dioxide 31 mmol/L (20-31); Chloride 104 mmol/L (98-107); Lipase 27 U/L (12-53); Potassium 4.4 mmol/L (3.5-5.1); Sodium 144 mmol/L (136-145); Total Protein 6.1 g/dL (5.7-8.2)
[2025-02-05 17:20] LABS: Bilirubin, Total < 0.2 mg/dL (0.2-1.0); Blood Urea Nitrogen 23 mg/dL (9-23); Glucose 127 mg/dL (74-106)
--- NOTE | 2025-02-05 17:24 | DVH ---
Indication: abd pain Technique: CT axial images of the abdomen and pelvis are obtained without contrast. Coronal and sagittal reformats were obtained. Radiation Dose Information: CTDI volume is 17 mGy. Dose-length product is 1008 mGy*cm Comparison: CT CT AB PEL WO CON-NO ORAL OR IV on DOS: 08/09/24 FINDINGS: There is limited interpretation of the abdomen and pelvis without administration of intravenous contrast. Lung bases demonstrate atelectatic changes. No pleural effusion. Coronary artery calcification disease. Adrenal glands, spleen, pancreas and liver unremarkable in shape. Cholelithiasis. The bilateral kidneys demonstrate no hydronephrosis / nephrolithiasis. Stomach partially distended. Small bowel loops are moderately distended. Fecal like contents small bowel. Large volume stool within the colon. No secondary signs for appendicitis. Colonic diverticula. Abdominal aortic atherosclerotic disease. Bladder partially distended. No free pelvic fluid. No inguinal lymphadenopathy. [id number] bilateral sacroiliac degenerative joint disease. Moderate thoracolumbar degenerative disc disease most pronounced at L5-S1. IMPRESSION: Limited evaluation without contrast. Large volume stool within the colon Fecal like contents within the small bowel which can be seen with ileus, hypomotility, bowel obstruction. Atherosclerotic calcification disease. Cholelithiasis. Colonic diverticular disease Other findings as described
[2025-02-05 20:37] VITALS: BP 108/45; PULSE 77; RESP 18; TEMP 98.5; O2SAT 95
--- NOTE | 2025-02-07 14:03 | ECG ---
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
[2025-02-10] MEDS ORDERED: CLOP75TA70 PO (12:04)
== END 2025-02-05 20:40 | disposition home or self-care (01) ==
LOC: EDBD 16:16 → ER 16:16 → EDSEX 16:16 → ER 20:40
DX: K29.70 Gastritis, unspecified, without bleeding (principal); K52.9 Noninfective gastroenteritis and colitis, unspecified; J44.9 Chronic obstructive pulmonary disease, unspecified; E11.9 Type 2 diabetes mellitus without complications; E78.5 Hyperlipidemia, unspecified; I10 Essential (primary) hypertension; I25.10 Atherosclerotic heart disease of native coronary artery without angina pectoris; Z79.899 Other long term (current) drug therapy; Z90.49 Acquired absence of other specified parts of digestive tract; Z79.82 Long term (current) use of aspirin; Z79.02 Long term (current) use of antithrombotics/antiplatelets; Z79.4 Long term (current) use of insulin; Z79.01 Long term (current) use of anticoagulants
CPT/HCPCS: 36415; 74176; 80053; 82947; 83690; 85025; 93005

== ENCOUNTER 2025-02-06 21:06 | Inpatient (IN) | payer OTHER, MEDICAID ==
[~2025-02-06] VITALS: Ht 165.1 cm; Wt 70.5 kg
--- NOTE | 2025-02-06 21:24 | ECG ---
[facility] Test Date: 2025-02-06 Test Time: 21:17:17 Pat Name: MARY JANE BRITT Department: ED Room: [address] [place] [address] Gender: M Goods Layer: : 1950 Requested By: ERICA FERGUSON* Order Number: [id number] Reading MD: Josh Maldonado Measurements Intervals [place] Rate: 61 P: 9 WY: 187 QRS: 16 QRSD: 99 T: 30 QT: 433 QTc: 437 Interpretive Statements Sinus rhythm Inferolateral infarct, old Electronically Signed On 02-07-2025 17:06:45 PST by Josh Maldonado Please click the below link to view image of tracing.
[2025-02-06 21:44] LABS: Hemoglobin 7.6 g/dL (13.5-17.5)
[2025-02-06 21:45] LABS: Hematocrit 23.3 % (41.0-53.0); Mean Corpuscular Hemoglobin 26.7 pg (28.0-32.0); Mean Corpuscular Volume 81.5 fL (80.0-100.0); Nucleated Red Blood Cells % 0.1 %
[2025-02-06 22:00] LABS: Alanine Aminotransferase 36 U/L (7-40); Albumin 3.5 g/dL (3.2-4.8); Alkaline Phosphatase 53 U/L (46-116); Anion Gap 9 (5-15); BUN/Creatinine Ratio 20.8 (10.0-20.0); Blood Urea Nitrogen 21 mg/dL (9-23); Calcium 8.9 mg/dL (8.7-10.4); Carbon Dioxide 31 mmol/L (20-31); Chloride 101 mmol/L (98-107); Sodium 141 mmol/L (136-145)
--- NOTE | 2025-02-06 22:46 | DVH ---
CLINICAL HISTORY: CHEST PAIN TECHNIQUE: Single view of the chest was obtained. COMPARISON: XY CHEST PORTABLE on DOS: 01/21/25, XY CHEST PORTABLE on DOS: 12/25/24, XY CHEST PORTABLE on DOS: 11/26/24, XY CHEST PORTABLE on DOS: 08/09/24 FINDINGS: The heart size and pulmonary vasculature are normal. The lungs are clear. IMPRESSION: NO ACUTE CARDIOPULMONARY PROCESS.
[2025-02-06 22:53] LABS: Bilirubin, Total 0.2 mg/dL (0.2-1.0); Glucose 307 mg/dL (74-106); Potassium 5.3 mmol/L (3.5-5.1); Total Protein 5.4 g/dL (5.7-8.2)
[2025-02-06] MEDS: FUROSEMIDE 20 MG/2 ML VIAL IV ONE (23:30)
[2025-02-06] MEDS: InsuLIN REG 1unit/0.01ml Soln (100units/ml) IV ONE (23:30)
[2025-02-06] MEDS: SODIUM BICARB 8.4% 50Meq/50ml SYR INJ IV ONE (23:30)
[2025-02-06] MEDS: ALBUTEROL SULF 2.5 MG/0.5ML(0.5%) NEB SOLN NEB ONE (23:48)
[2025-02-07] VITALS (66 sets, daily range): BP systolic 73–162; BP diastolic 40–73; PULSE 61–93; RESP 10–25; TEMP 98.1–99.4; O2SAT 91–100
[2025-02-07] MEDS: MORPHINE SULFATE 4 MG/ML SYR/VIAL IV ONE (00:24)
[2025-02-07] MEDS: ONDANSETRON HCL 4 MG/2 ML VIAL IV ONE (00:30)
[2025-02-07] MEDS: NITROGLYCERIN 0.4 MG SL TAB SL ONE (00:38)
[2025-02-07] MEDS: HEPARIN SODIUM (PORCINE) 5000 UNITS/ML 1ML VIAL IV ONE (00:45)
[2025-02-07 01:21] LABS: Alanine Aminotransferase 37 U/L (7-40); Albumin 3.5 g/dL (3.2-4.8); Alkaline Phosphatase 52 U/L (46-116); Anion Gap 10 (5-15); BUN/Creatinine Ratio 22.7 (10.0-20.0); Calcium 8.9 mg/dL (8.7-10.4); Carbon Dioxide 28 mmol/L (20-31); Chloride 101 mmol/L (98-107); Potassium 4.8 mmol/L (3.5-5.1); Sodium 139 mmol/L (136-145)
[2025-02-07 01:34] LABS: Bilirubin, Total 0.2 mg/dL (0.2-1.0); Blood Urea Nitrogen 25 mg/dL (9-23); Glucose 367 mg/dL (74-106); Total Protein 5.4 g/dL (5.7-8.2)
[2025-02-07] MEDS: VERAPAMIL 2.5MG/ML INJ 2ML VIAL IV ONE (01:35)
[2025-02-07] MEDS: ANGIOMAX 250 MG VIAL IV ONE (01:35)
[2025-02-07] MEDS: fentaNYL CITRATE 100 MCG/2 ML VL ONE ×2 (01:36→02:46)
[2025-02-07] MEDS: LIDOCAINE 2%HCL (LOCAL ANESTH.) INJ 20ML MDV ONE (01:36)
[2025-02-07] MEDS: SODIUM CHL 0.9% 50 ML ONE (01:36)
[2025-02-07] MEDS: MIDAZOLAM HCL 2MG/2ML 2ml VIAL (1mg/ml) ONE ×2 (01:36→02:27)
[2025-02-07] MEDS: HEPARIN IN NS 1000Units/500mL 1,500 ML ONE (01:37)
[2025-02-07] MEDS: IODIXANOL 320MG/ML 100ML BTL IV ONE ×2 (01:37→02:42)
--- NOTE | 2025-02-07 01:45 | ED.PDOC ---
HPI Comments 74-year-old male brought in by EMS. Per EMS patient was at home complaining of chest pain. States he woke up in the morning with chest pain. States it started to radiate and become 10/10. Patient reports pain on the left side. EMS arrived and fire was on scene, they gave one nitro. Patient states he also took three aspirin prior to EMS arrival. Patient does report some mild relief from the 1st nitro. Upon transport into the emergency department patient was given a 2nd nitro which did help alleviate pain a bit more, patient reports 5/10 pain upon arrival to the emergency department, patient denies any shortness the breath no fever no chills no coughing. Patient was seen yesterday for abdominal pain. States abdominal pain had subsided. Chief Complaint: Chest Pain Time Seen by MD: 21:12 Primary Care Provider: unknown Reviewed Notes: Nurses Notes Allergies: Coded Allergies: NO KNOWN ALLERGIES (Unverified , 08/09/24) Home Meds Active Scripts Ipratropium [place] Hfa (Atrovent Hfa) 17 Mcg Aer, 2 PUFF INH QID for 30 Days, #12.9 GRAMS 3 Refills Prov:EMANUEL FIORE 08/15/24 Insulin Lispro (Humalog Kwikpen) 100 Unit/Ml Inj, 10 UNIT SC TID for 30 Days, #5 INJ please apply 10 ui before each meal, if the patient will nor eat dont apply Prov:CECILE VermaEMAUNEL HDZ 08/15/24 Insulin Glargine (Basaglar Kwikpen) 100 Unit/Ml Inj, 26 UNIT SC DAILY for 30 Days, #3 INJ please apply 26 ui at night Prov:EMANUEL FIORE 08/15/24 Blood Glucose Monitoring Suppl (D-Care Glucometer Kit/Glu W/Device) 1 Kit Kit, KIT XX ACHS, #1 1 Refill please check sugars before meals and bedtime Prov:EMANUEL FIORE 08/15/24 Lancets Misc. (ACCU-CHEK FASTCLIX LANCET) Fastclix Kit, UNIT XX ACHS, #120 please check sugars before meals and bedtime Prov:EMANUEL FIORE 08/15/24 Ipratropium [place] Hfa (Atrovent Hfa) 17 Mcg Aer, 2 PUFF INH QID for 30 Days, #12.9 GRAMS 5 Refills Prov:EMANUEL FIORE [facility] 08/15/24 Albuterol Sulfate (VENTOLIN MDI) 90 Mcg Ih, 90 MCG IN Q8HR for 30 Days, #1 INH Prov:EMANUEL FIORE [facility] 08/14/24 Aspirin (Aspirin Low Dose) 81 Mg Tab, 81 MG PO DAILY for 90 Days, #90 TAB Prov:EMANUEL FIORE [facility] 08/14/24 Clopidogrel Bisulfate (CLOPIDOGREL) 75 Mg Tab, 75 MG PO DAILY for 90 Days, #90 TAB Prov:EMANUEL FIORE [facility] 08/14/24 Atorvastatin Calcium (ATORVASTATIN CALCIUM) 40 Mg Tab, 40 MG PO DAILY for 90 Days, #90 [facility]24 Apixaban Base (ELIQUIS) 5 Mg Tab, 5 MG PO BID for 90 Days, #180 TAB [facility] 08/14/24 Apixaban Base (ELIQUIS) 5 Mg Tab, 10 MG PO BID for 5 Days, #20 TAB [facility] 08/14/24 Acetaminophen (Acetaminophen) 325 Mg Tab, 325 MG PO Q6HP PRN for 10 Days, #40 TAB Prov:EMANUEL FIORE [facility] 08/14/24 Reported Medications Atorvastatin Calcium (ATORVASTATIN CALCIUM) 80 Mg Tab, 1 TAB PO DAILY, #30 TAB 5 Refills 08/10/24 Losartan Potassium (Losartan Potassium) 100 Mg Tab, 1 TAB PO DAILY, #30 TAB 5 Refills 08/10/24 Levetiracetam (Keppra) 1,000 Mg Tab, 1 TAB PO BID, #60 TAB 5 Refills 08/10/24 Information Source: Patient Mode of Arrival: EMS Past Medical History PAST MEDICAL HISTORY: CAD, COPD, DM, High Lipids, HTN, Seizures Surgical History: Appendectomy Family History Family History: Reviewed,noncontributory to illness, No family hx of Cancer, No family hx of DM, No family hx of Heart blanquita, No family hx of HTN, No family hx ofKidney blanquita, No family hx of Liver blanquita, No family hx of Lung blanquita, No family hx of Stroke Social History Smoker: Non-Smoker Alcohol: Denies ETOH Use Drugs: Denies Drug Use Lives In: Home Constitutional: denies: chills, diaphoresis, fatigue, fever, malaise, sweats, weakness, others EENTM: denies: blurred vision, double vision, ear bleeding, ear discharge, ear drainage, ear pain, ear ringing, eye pain, eye redness, hearing loss, mouth pain, mouth swelling, nasal discharge, nose bleeding, nose congestion, nose pain, photophobia, tearing, throat pain, throat swelling, voice changes, others Respiratory: denies: cough, hemoptysis, orthopnea, SOB at rest, shortness of breath, SOB with excertion, stridor, wheezing, others Cardiovascular: reports: chest pain; denies: dizzy spells, diaphoresis, Dyspnea on exertion, edema, irregular heart beat, left arm pain, lightheadedness, palpi tations, PND, syncope, others Gastrointestinal: denies: abdomen distended, abdominal pain, blood streaked bowels, constipated, diarrhea, dysphagia, difficulty swallowing, hematemesis, melena, nausea, poor appetite, poor fluid intake, rectal bleeding, rectal pain, vomiting, others Genitourinary: denies: burning, dysuria, flank pain, frequency, hematuria, incontinence, penile discharge, penile sore, pain, testicle pain, testicle swelling, urgency, others Neurological: denies: dizziness, fainting, headache, left sided numbness, left sided weakness, numbness, paresthesia, pre-existing deficit, right sided numbness, right sided weakness, seizure, speech problems, tingling, tremors, weakness, others Physical Exam General Appearance: Moderate Distress, Normal HEENT: Normal ENT Inspection, Pharynx Normal, TMs Normal Neck: Full Range of Motion, Non-Tender, Normal, Normal Inspection Respiratory: Chest Non-Tender, Lungs Clear, No Accessory Muscle Use, No Respiratory Distress, Normal Breath Sounds Cardiovascular: No Edema, No JVD, No Murmur, No Gallop, Normal Peripheral Pulses, Regular Rate/Rhythm Breast Exam: Deferred Gastrointestinal: No Organomegaly, Non Tender, No Pulsatile Mass, Normal Bowel Sounds, Soft Genitalia: Deferred Pelvic: Deferred Rectal: Deferred Extremities: No calf tenderness, Normal capillary refill, Normal inspection, Normal range of motion, Non-tender, No pedal edema Musculoskeletal : Apperance: Normal Neurologic: Alert, water inspector II-XII nml as Tested, No Motor Deficits, Normal Affect, Normal Mood, No Sensory Deficits Cerebellar Function: Normal Reflexes: Normal Skin: Dry, Normal Color, Warm Lymphatic: No Adenopathy EKG EKG : Pulse Rate (adult): 61 [place]: Normal ST: Old, Inf Was a procedure done? Was a procedure done?: No CP Differential Dx Differential Diagnosis: Angina, Anxiety / Panic Attack, Atrial Dysrhythmia, OK X-Ray, Labs, Meds, VS Vital Signs Date Time Temp Pulse Resp B/P (MAP) Pulse Ox O2 Delivery O2 Flow Rate FiO2 02/07/25 00:48 80 02/07/25 00:29 98.1 93 20 149/61 (90) 97 98.1 02/07/25 00:28 96 02/07/25 00:24 108 16 149/61 02/06/25 23:48 18 98 Room Air* 0 21 02/06/25 21:17 61 02/06/25 21:10 98.4 73 16 153/60 98 98.4 02/06/25 21:10 98 Room Air* 0 21 Lab Test 02/07/25 01:04 02/07/25 00:18 02/06/25 22:17 02/06/25 21:27 Range/Units POC Glucose 373 H 70-106 mg/dl Sodium Level Pending 141 136-145 mmol/L Potassium Level Pending 5.3 H 3.5-5.1 mmol/L Chloride Level Pending 101 98-107 mmol/L Carbon Dioxide Level Pending 31 20-31 mmol/L Anion Gap Pending 9 5-15 Blood Urea Nitrogen Pending 21 9-23 mg/dL Creatinine Pending 1.01 0.700-1.30 mg/dL Glomerular Filtration Rate Calc Pending 77 >90 mL/min BUN/Creatinine Ratio Pending 20.8 H 10.0-20.0 Serum Glucose Pending 307 #H 74-106 mg/dL Calcium Level Pending 8.9 8.7-10.4 mg/dL Total Bilirubin Pending 0.2 0.2-1.0 mg/dL Aspartate Amino Transferase (AST) Pending 39 13-40 U/L Alanine Aminotransferase (ALT) Pending 36 7-40 U/L Alkaline Phosphatase Pending 53 46-116 U/L Troponin I High Sensitivity 102 *H 73 *H 73 *H </=54 ng/L Total Protein Pending 5.4 L 5.7-8.2 g/dL Albumin Pending 3.5 3.2-4.8 g/dL White Blood Count 10.1 4.4-10.8 10^3/uL Red Blood Count 2.86 L 4.5-5.90 10^6/uL Hemoglobin 7.6 L 13.5-17.5 g/dL Hematocrit 23.3 #L 41.0-53.0 % Mean Corpuscular Volume 81.5 80.0-100.0 fL Mean Corpuscular Hemoglobin 26.7 L 28.0-32.0 pg Mean Corpuscular Hemoglobin Concent 32.8 32.0-36.0 g/dL Red Cell Distribution Width 17.6 H 11.8-14.3 % Platelet Count 264 140-450 10^3/uL Mean Platelet Volume 7.3 6.9-10.8 fL Neutrophils (%) (Auto) 87.5 H 37.0-80.0 % Lymphocytes (%) (Auto) 6.5 L 10.0-50.0 % Monocytes (%) (Auto) 5.8 0.0-12.0 % Eosinophils (%) (Auto) 0.1 0.0-7.0 % Basophils (%) (Auto) 0.1 0.0-2.0 % Neutrophils # (Auto) 8.9 H 1.6-8.6 10 ^3/uL Lymphocytes # (Auto) 0.7 0.4-5.4 10 ^3/uL Monocytes # (Auto) 0.6 0-1.3 10 ^3/uL Eosinophils # (Auto) 0 0-0.8 10 ^3/uL Basophils # (Auto) 0 0-0.2 10 ^3/uL Nucleated Red Blood Cells 0.1 % Current Medications Medications (Trade) Dose Ordered Sig/[place] Route Start Time Stop Time Status Last Admin Albuterol (Ventolin Medneb) 20 mg ONCE ONCE NEB 02/06/25 23:30 02/06/25 23:31 DC 02/06/25 23:48 Morphine Sulfate 4 mg ONCE ONCE IV 02/07/25 00:30 02/07/25 00:31 DC 02/07/25 00:24 Ondansetron HCl (Zofran) 4 mg ONCE ONCE IV 02/07/25 00:30 02/07/25 00:31 DC 02/07/25 00:30 X-Ray, Labs, Meds, VS Comment Lab results showed elevated troponins with the 1st one being 72nd one being seen for three 3rd troponin being 102 Patient had follow up EKG done as he has chest pain started to increase, 2nd EKG showed [address] elevations for acute OK Patient reporting increasing chest pain, given 4 mg IV morphine and 4 mg Zofran, given one nitro, states he had mild improvement of the chest pain. Had dropped blood pressure and was given [address] Maldonado a cardiology on-call was contacted and EKG was sent, he recommended the patient be given 5000 units heparin, weight 5 minutes and repeat EKG. Repeat EKG was sent to Dr. Maldonado, he states that due to patient's continued chest pain they will call for code STEMI At 1:35 a.m., electroplating laborer team arrived, continued having patient, patient natarajan sferred to electroplating laborer at 1:43 a.m. Spoke with , [facility], case update given, he states that patient had previous catheterization done December of 2023, was seen at [facility] November of 2024 and had catheterization done again but no stents placed and they opted for medical management Authorization # [id number] Time of 1ST Reevaluation: 01:45 Reevaluation 1ST: Unchanged Patient Education/Counseling: Diagnosis, Treatment Family Education/Counseling: Diagnosis, Treatment SEPSIS Sepsis Screen Date sepsis recognized/suspect: Feb 07, 2025 Time Sepsis recognized/suspect: 005 Recent Procedure: No On Antibiotic Therapy: No Respiratory Rate >20: No Heart Rate >90: No Temp<36 C (96.8 F) or >38.3 C: No SBP <90 or MAP <65 mmHG: No New Acute Mental Status Change: No Is the patient on CPAP, BIPAP,: No Physician Orders Chest Portable (02/06/25 21:22) Urinalysis (02/06/25 21:22) Electrocardigram (02/06/25 22:22) Electrocardigram (02/07/25 00:22) Comprehensive Metabolic Panel (02/07/25 00:25) Cl Left Heart Cath (02/07/25 01:29) Vital Signs Date Time Temp Pulse Resp B/P (MAP) Pulse Ox O2 Delivery O2 Flow Rate FiO2 02/07/25 00:48 80 02/07/25 00:29 98.1 93 20 149/61 (90) 97 98.1 02/07/25 00:28 96 02/07/25 00:24 108 16 149/61 02/06/25 23:48 18 98 Room Air* 0 21 02/06/25 21:17 61 02/06/25 21:10 98.4 73 16 153/60 98 98.4 02/06/25 21:10 98 Room Air* 0 21 Laboratory Tests Test 02/06/25 21:27 White Blood Count 10.1 10^3/uL (4.4-10.8) Medications Medications Dose Ordered Sig/[place] Route Start Time Stop Time Status Last Admin Dose Admin Albuterol 20 mg ONCE ONCE NEB 02/06/25 23:30 02/06/25 23:31 DC 02/06/25 23:48 Morphine Sulfate 4 mg ONCE ONCE IV 02/07/25 00:30 02/07/25 00:31 DC 02/07/25 00:24 Ondansetron HCl 4 mg ONCE ONCE IV 02/07/25 00:30 02/07/25 00:31 DC 02/07/25 00:30 Departure 1 Departure Time of Disposition: 01:34 Impression: Primary Impression: Acute myocardial infarction Qualified Codes: I21.3 - ST elevation (STEMI) myocardial infarction of unspecified site Disposition: ADMITTED INPATIENT Condition: Critical Critical Care Note Critical Care Time?: Yes (30 min-critical care time only) Critical care comment: I have personally spent 35 minutes of critical care time, exclusive of the time spent on any procedures, in evaluation and management of this critically ill patient's conditions. I provided the following cleared of care treatment: Patient was given 5000 units heparin, discussed case with Dr. Morrison [place] Code STEMI alerted Patient taken to electroplating laborer Stability Stability form required: No Heart Score Heart Score: Heart Score Response (Comments) Value History Highly Suspicious [address]-Deviation 2 Age >65 2 Risk Factors >3 or Hx ASHD 2 Troponin 1-2 x's Normal limit 1 Total 9 ERICA HORVATH Feb 07, 2025 01:45
--- NOTE | 2025-02-07 01:53 | DVHINCON2 ---
Date Seen: Feb 07, 2025 Referring Physician Emergency room physician Reason for Consultation Acute ST-elevation myocardial infarction History of Present Illness 74-year-old gentleman with a previously known history of coronary artery disease with two previous angioplasties a proximally a year ago and again four months ago. He has had according to his records and in speaking with [place] a stent to the LAD and last November he was again taken to [facility] we will cardiac catheterization revealed coronary artery disease however he was told he needed medical management. Most recently he has been having recurrent episodes of chest pain. This has been waxing and waning. Upon his initial evaluation about an hour and a half ago in the emergency room he had what appears to be a normal EKG. Recurrence of chest pain revealed significant ST segment depressions in the posterior leads consistent with an acute posterior wall myocardial infarction in evolution for which a code STEMI was called and cardiac evaluation requested. He continues to have a chest pain about 8/10 at this time he has been given nitroglycerin sublingually and has been given heparin. No history of bleeding disorders Past Medical History He does have a history of insulin-dependent diabetes mellitus. Seizure di sorders. Hyperlipidemia. Hypertension. He has been a diabetic for over 40 years. Previously no coronary artery disease in his mentioned above stenting to the left anterior descending coronary artery within the past 48 months. Lad stenting most recently. He did have an echocardiogram in August and it showed normal left ventricular function. No significant bleeding or trauma recently. Past Surgical History Previous stenting Family History: Patient reports no known family medical history. Allergies: Coded Allergies: NO KNOWN ALLERGIES (Unverified , 08/09/24) Home Meds Active Scripts Ipratropium [place] Hfa (Atrovent Hfa) 17 Mcg Aer, 2 PUFF INH QID for 30 Days, # 12.9 GRAMS 3 Refills Prov:EMANUEL FIORE 08/15/24 Insulin Lispro (Humalog Kwikpen) 100 Unit/Ml Inj, 10 UNIT SC TID for 30 Days, #5 INJ please apply 10 ui before each meal, if the patient will nor eat dont apply Prov:EMANUEL FIORE 08/15/24 Insulin Glargine (Basaglar Kwikpen) 100 Unit/Ml Inj, 26 UNIT SC DAILY for 30 D ays, #3 INJ please apply 26 ui at night Prov:EMANUEL FIORE 08/15/24 Blood Glucose Monitoring Suppl (D-Care Glucometer Kit/Glu W/Device) 1 Kit Kit, KIT XX ACHS, #1 1 Refill please check sugars before meals and bedtime Prov:EMANUEL FIORE 08/15/24 Lancets Misc. (ACCU-CHEK FASTCLIX LANCET) Fastclix Kit, UNIT XX ACHS, #120 please check sugars before meals and bedtime Prov:EMANUEL FIORE 08/15/24 Ipratropium [place] Hfa (Atrovent Hfa) 17 Mcg Aer, 2 PUFF INH QID for 30 Days, #12.9 GRAMS 5 Refills Prov:EMANUEL FIORE 08/15/24 Albuterol Sulfate (VENTOLIN MDI) 90 Mcg Ih, 90 MCG IN Q8HR for 30 Days, #1 INH Prov:EMANUEL FIORE 08/14/24 Aspirin (Aspirin Low Dose) 81 Mg Tab, 81 MG PO DAILY for 90 Days, #90 TAB Prov:EMANUEL FIORE 08/14/24 Clopidogrel Bisulfate (CLOPIDOGREL) 75 Mg Tab, 75 MG PO DAILY for 90 Days, #90 TAB Prov:EMANUEL FIORE 08/14/24 Atorvastatin Calcium (ATORVASTATIN CALCIUM) 40 Mg Tab, 40 MG PO DAILY for 90 Days, #90 TAB Prov:EMANUEL FIORE 08/14/24 Apixaban Base (ELIQUIS) 5 Mg Tab, 5 MG PO BID for 90 Days, #180 TAB Prov:EMANUEL FIORE 08/14/24 Apixaban Base (ELIQUIS) 5 Mg Tab, 10 MG PO BID for 5 Days, #20 TAB Prov:EMANUEL FIORE [facility] 08/14/24 Acetaminophen (Acetaminophen) 325 Mg Tab, 325 MG PO Q6HP PRN for 10 Days, #40 TAB Prov:EMANUEL FIORE [facility] 08/14/24 Reported Medications Atorvastatin Calcium (ATORVASTATIN CALCIUM) 80 Mg Tab, 1 TAB PO DAILY, #30 TAB 5 Refills 08/10/24 Losartan Potassium (Losartan Potassium) 100 Mg Tab, 1 TAB PO DAILY, #30 TAB 5 Refills 08/10/24 Levetiracetam (Keppra) 1,000 Mg Tab, 1 TAB PO BID, #60 TAB 5 Refills 08/10/24 Review of Systems Review of systems from a constitutional standpoint negative. Cardiac and respiratory as noted above. GI musculoskeletal neurologic endocrine hematological and oncological negative with the exception of seizure disorder as mentioned and arthritis. Vital Signs Vital Signs Date Time Temp Pulse Resp B/P (MAP) Pulse Ox O2 Delivery O2 Flow Rate FiO2 02/07/25 00:48 80 02/07/25 00:29 98.1 20 149/61 (90) 97 98.1 02/06/25 23:48 Room Air* 0 21 Physical Exam He is awake alert and oriented no acute distress he is having moderate to severe chest pain. He is non diaphoretic he is warm and dry. HEENT examination is otherwise unremarkable artery well hydrated. Trachea central neck is supple thyroid is nonpalpable is no jugular distention no bruits. Lungs reveal good air entry. Heart exam reveals regular S1-S2 soft S4. Abdominal examination is otherwise unremarkable. Extremities reveal adequate perfusion no clubbing cyanosis no edema. Neurologically intact. Diminished proprioception. Integumentary is otherwise within normal limits without open wounds. Labs/Diagnostic Data Labs Test 02/07/25 01:04 02/07/25 00:18 02/06/25 21:27 Range/Units POC Glucose 373 H 70-106 mg/dl Sodium Level 139 136-145 mmol/L Potassium Level 4.8 3.5-5.1 mmol/L Chloride Level 101 98-107 mmol/L Carbon Dioxide Level 28 20-31 mmol/L Anion Gap 10 5-15 Blood Urea Nitrogen 25 H 9-23 mg/dL Creatinine 1.10 0.700-1.30 mg/dL Glomerular Filtration Rate Calc 70 >90 mL/min BUN/Creatinine Ratio 22.7 H 10.0-20.0 Serum Glucose 367 H 74-106 mg/dL Calcium Level 8.9 8.7-10.4 mg/dL Total Bilirubin 0.2 0.2-1.0 mg/dL Aspartate Amino Transferase (AST) 36 13-40 U/L Alanine Aminotransferase (ALT) 37 7-40 U/L Alkaline Phosphatase 52 46-116 U/L Troponin I High Sensitivity 102 *H </=54 ng/L Total Protein 5.4 L 5.7-8.2 g/dL Albumin 3.5 3.2-4.8 g/dL White Blood Count 10.1 4.4-10.8 10^3/uL Red Blood Count 2.86 L 4.5-5.90 10^6/uL Hemoglobin 7.6 L 13.5-17.5 g/dL Hematocrit 23.3 #L 41.0-53.0 % Mean Corpuscular Volume 81.5 80.0-100.0 fL Mean Corpuscular Hemoglobin 26.7 L 28.0-32.0 pg Mean Corpuscular Hemoglobin Concent 32.8 32.0-36.0 g/dL Red Cell Distribution Width 17.6 H 11.8-14.3 % Platelet Count 264 140-450 10^3/uL Mean Platelet Volume 7.3 6.9-10.8 fL Neutrophils (%) (Auto) 87.5 H 37.0-80.0 % Lymphocytes (%) (Auto) 6.5 L 10.0-50.0 % Monocytes (%) (Auto) 5.8 0.0-12.0 % Eosinophils (%) (Auto) 0.1 0.0-7.0 % Basophils (%) (Auto) 0.1 0.0-2.0 % Neutrophils # (Auto) 8.9 H 1.6-8.6 10 ^3/uL Lymphocytes # (Auto) 0.7 0.4-5.4 10 ^3/uL Monocytes # (Auto) 0.6 0-1.3 10 ^3/uL Eosinophils # (Auto) 0 0-0.8 10 ^3/uL Basophils # (Auto) 0 0-0.2 10 ^3/uL Nucleated Red Blood Cells 0.1 % EKG shows a sinus rhythm. He does have significant ST segment depressions across the anterolateral leads and what appears to be posterior wall involvement. Assessment Acute ST-elevation myocardial infarction with probable posterior wall myocardial infarction consider anterior ischemia concurrently. Associated history of diabetes. Hypertension. Seizure disorder. Hyperlipidemia. COPD. Neuropathy. Significant anemia consider GI loss. Plan/Recommendation Risks and benefits has been explained to the patient. He will require cardiac catheterization therapeutic intervention on an urgent basis. We will require anticoagulation and monitoring of his blood count and monitor for GI bleeding as well. Patient is at moderate risk for intervention given his overall frailty and coexisting conditions and comorbidities. Plan discussed with: Patient NYHA Physical activity limitations: Class2(Slight)fatigue,sob Date of Service: Feb 07, 2025 Billing Provider: LIZZY GALINDO Sr., MD Cardiology Common Codes: 10095-HPUWVQD INP/OBS CARE (High) LIZZY GALINDO Sr., MD Feb 07, 2025 01:53
[2025-02-07] MEDS: HEPARIN SODIUM (PORCINE) 5000 UNITS/ML 1ML VIAL ONE ×2 (03:10→07:28)
[2025-02-07] MEDS: CLOPIDOGREL BISULFATE 75 MG TAB ONE (03:36)
[2025-02-07] MEDS ORDERED: ACETAMINOPHEN 325 MG TAB PO PRN (04:00)
[2025-02-07] MEDS ORDERED: DEXTROSE (50%) 50ML SYRG IV PRN (04:00)
[2025-02-07] MEDS: CLOPIDOGREL BISULFATE 75 MG TAB PO ONE (04:00)
--- NOTE | 2025-02-07 04:02 | DVHOP2 ---
Operative Report - 2 Report Details Date: 02/07/25 Preop Diagnosis: Acute ST-elevation ND Postop Diagnosis: Coronary artery disease Diabetes mellitus Hypertension. Cardiomyopathy Anemia Surgeon: Lizzy Maldonado MD Anesthesiologist: Conscious sedation Anesthesia: Mac, Local Consent: The patient was informed of the risks and benefits of the procedure. These include but are not limited to complications of anesthesia, postoperative infection, incomplete relief of symptoms, recurrence of symptoms, damage to blood vessels, nerves and tendons, deep venous thrombosis, pulmonary embolism and possible need for repeat surgery in the future. Complications: No complications Findings: CAD, RCA stenosis. Circumflex and intermediate artery stenosis Indications for Surgery: Acute ST-elevation myocardial infarction Name of Procedure Performed Left heart catheterization. Bilateral cine coronary angiography. Left ventriculography. PTCA and stenting of RCA proximally ostial P[place]ja acute marginal branches supplying the inferior septal wall left ventricle. Procedure Details Procedure Details: Prior local anesthesia with 2% lidocaine to the right wrist and full informed consent obtained the patient was prepped and draped in usual fashion followed by placement of a six Cuban sheath in the right radial artery under fluoroscopic and ultrasound guidance. We then placed a 3.5 EBU guide which was used to cannulate the left ventricle and performed ventriculography as well as both right and left coronary ostia without complications. Angioplasty and stenting as will be delineated below. Hemodynamics: Aortic blood pressure was 110/70 end-diastolic pressure of 20. There was no gradient across the aortic valve on pullback. Coronary anatomy: The RCA is a large vessel it has an ostial 75-80% irregular stenosis. The proximal segment at the level of the acute marginal branch and preceding the acute marginal branch there is a series of stenosis from 95+ % to 99% within the LAD and marginal bifurcation. The marginals supplies the inferior septal wall left ventricle and provides a septal blush. The RCA is occluded distal to the marginal with minimal flow. The posterolateral branches distally fill faintly from the left coronary injection. Minimal collateralization noted The left main is large and normal. Left anterior descending is a large vessel it has been stented. There are no critical lesions within the LAD which is large. The septals and diagonals are free of significant disease with the exception of the 2nd diagonal which has an ostial and proximal 85-95% stenosis however this vessel is small and does not appear to be amenable to angioplasty. The circumflex bifurcates early on into an intermediate and nondominant circumflex. The ostium of the intermediate has a 90% stenosis. Not a ruptured plaque at this level. The ostium of the circumflex at the bifurcation of the intermediate also has an 85-90% stenosis. The intermediate artery is a large vessel that gives off several large branches. Ventriculography in the VENTURA projection shows an EF of about 50% with global hypokinesis. Angioplasty was performed. A Specter wire was placed into the acute marginal branch and we had some difficulty in passing a one five and 1 mm balloon. Given the significant calcification we opted to place a 2 mm balloon at high pressure. This was a noncompliant SpotBankstronic balloon at a proximally 20 atmospheres. Inching by into the acute marginal branch we were able to open the area of stenosis that was previously 95% stenosed. We were then able to angioplasty the entirety of the stenosis from the marginal to the proximal RCA. We had difficulty passing a 2.5 x 8 mm stent for which we then used a Guidezilla to help with the tortuosity and the calcification. Subsequent to this we placed a 2.5 by 15 mm stent just proximal to the one previously placed and followed it with a 3.0 by 12 mm stent into the proximal RCA. We noticed a dissection in the proximal RCA just distal to the ostium with a dampening of pressures. We placed a three five by 18 mm stent at this level toe proximally 15 atmospheres with excellent antegrade flow without thrombus formation and/or dissection with the resolution of the pre-existing gradient. Notable flow to the distal inferior wall also was noted to improve. ST segments seemed to have normalized. Impression: Elevated left ventricular end-diastolic pressure at rest with three-vessel coronary artery disease as mentioned. Successful PTCA and stenting of the RCA/acute marginal branch. Significant stenosis of the circumflex and intermediate branch requiring a staged procedure. Recommendations: A staged procedure will be scheduled in the next 2-3 days.. Condition Guarded Disposition Still a Patient Date of Service: Feb 07, 2025 Billing Provider: LIZZY MALDONADO Sr., MD Cardiology Common Codes: [id number] INP/OBS CARE (High) Cardiology Procedure Codes: 68909-PKJO FOR STEMI W/STENT, 04219-[id number] HEART CATH W/INTRA INJ LIZZY MALDONADO Sr., MD Feb 07, 2025 04:02
[2025-02-07 04:30] LABS: Total Iron Binding Capacity 305.0 ug/dL (250-425)
[2025-02-07 04:33] LABS: Iron 23.0 ug/dL (65-175)
--- NOTE | 2025-02-07 04:38 | DVHHP2 ---
History of Present Illness Reason for Visit: Chest pain History of Present Illness 74-year-old male presents for evaluation of chest pain. Patient reports a one day history of left-sided sharp chest pain with associated shortness for breath and nausea. Denies cough or fever. Currently rates the pain at 9/10 intensity. Past Medical History COPD, diabetes mellitus, CAD, dyslipidemia, hypertension, seizures Past Surgical History Appendectomy Family History Noncontributory Smoke: No ALCOHOL: none Drugs: None Lives: with Family Review of Systems Review of Systems Review of systems are currently negative otherwise addressed in HPI. Allergies: Coded Allergies: NO KNOWN ALLERGIES (Unverified , 08/09/24) Medications Current Medications Medications Dose Ordered Sig/[place] Route Start Time Stop Time Status Last Admin Dose Admin Albuterol 2.5 mg Q6HPRN PRN NEB 02/07/25 04:00 Aspirin 81 mg DAILY PO 02/07/25 10:00 Atorvastatin Calcium 40 mg HS PO 02/07/25 22:00 Clopidogrel Bisulfate 75 mg DAILY PO 02/07/25 10:00 Apixaban 5 mg BID PO 02/07/25 10:00 Losartan Potassium 100 mg DAILY PO 02/07/25 10:00 Levetiracetam 1,000 mg BID PO 02/07/25 10:00 Diagnostic Test (Pha) 1 strip ACHS 02/07/25 07:00 Insulin Human Regular ACHS SC 02/07/25 07:00 Dextrose 50 ml UD PRN IV 02/07/25 04:00 Acetaminophen/ Hydrocodone Bitart 1 tab Q4HP PRN PO 02/07/25 04:00 Ondansetron HCl 4 mg Q4HP PRN IV 02/07/25 04:00 Acetaminophen 650 mg Q6HP PRN PO 02/07/25 04:00 Nitroglycerin 0.4 mg Q5MINP PRN SL 02/07/25 04:00 Morphine Sulfate 2 mg Q30M PRN IV 02/07/25 04:00 Aspirin 325 mg DAILY PO 02/07/25 10:00 UNV Exam Vital Signs Vital Signs Date Time Temp Pulse Resp B/P (MAP) Pulse Ox O2 Delivery O2 Flow Rate FiO2 02/07/25 04:14 98.1 61 18 149/61 98 0.0 21 98.1 02/06/25 23:48 Room Air* Exam Gen: 74-year-old male in moderate distress Skin: Warm, dry, normal color and texture, no rash. HEENT: Normocephalic atraumatic, mucous membranes moist and pink. Neck: Cervical and supraclavicular nodes normal without enlargement, trachea is midline, thyroid gland is normal without masses. Pulmonary: Clear to auscultation and percussion bilaterally. Cardiac: Regular rate and rhythm. No murmur Abdomen: Soft, nontender, nondistended, bowel sounds present all 4 quadrants, no guarding, no rigidity, no organomegaly. Extremities: No cyanosis, clubbing, no edema Neuro: Cranial nerves II through XII grossly intact, normal affect and speech, no focal motor deficits. Labs/Xrays RDERING PHYSICIAN: ERICA HORVATH PROCEDURE(s): CXRP - CHEST PORTABLE REASON: CHEST PAIN ORDER NUMBER(s): [id number], ACCESSION NUMBER(s): [id number] CLINICAL HISTORY: CHEST PAIN TECHNIQUE: Single view of the chest was obtained. COMPARISON: XY CHEST PORTABLE on DOS: 01/21/25, XY CHEST PORTABLE on DOS: 12/25/24, XY CHEST PORTABLE on DOS: 11/26/24, XY CHEST PORTABLE on DOS: 08/09/24 FINDINGS: The heart size and pulmonary vasculature are normal. The lungs are clear. IMPRESSION: NO ACUTE CARDIOPULMONARY PROCESS. Labs Test 02/07/25 04:08 02/07/25 01:16 02/07/25 01:04 02/07/25 00:18 Range/Units Activated Clotting Time 198 H 93-166 SEC. Iron Level 23 L 65-175 ug/dL Total Iron Binding Capacity 305 250-425 ug/dL Percent Iron Saturation 7.5 L 20-55 % POC Glucose 373 H 70-106 mg/dl Sodium Level 139 136-145 mmol/L Potassium Level 4.8 3.5-5.1 mmol/L Chloride Level 101 98-107 mmol/L Carbon Dioxide Level 28 20-31 mmol/L Anion Gap 10 5-15 Blood Urea Nitrogen 25 H 9-23 mg/dL Creatinine 1.10 0.700-1.30 mg/dL Glomerular Filtration Rate Calc 70 >90 mL/min BUN/Creatinine Ratio 22.7 H 10.0-20.0 Serum Glucose 367 H 74-106 mg/dL Calcium Level 8.9 8.7-10.4 mg/dL Total Bilirubin 0.2 0.2-1.0 mg/dL Aspartate Amino Transferase (AST) 36 13-40 U/L Alanine Aminotransferase (ALT) 37 7-40 U/L Alkaline Phosphatase 52 46-116 U/L Troponin I High Sensitivity 102 *H </=54 ng/L Total Protein 5.4 L 5.7-8.2 g/dL Albumin 3.5 3.2-4.8 g/dL Test 02/06/25 21:27 Range/Units White Blood Count 10.1 4.4-10.8 10^3/uL Red Blood Count 2.86 L 4.5-5.90 10^6/uL Hemoglobin 7.6 L 13.5-17.5 g/dL Hematocrit 23.3 #L 41.0-53.0 % Mean Corpuscular Volume 81.5 80.0-100.0 fL Mean Corpuscular Hemoglobin 26.7 L 28.0-32.0 pg Mean Corpuscular Hemoglobin Concent 32.8 32.0-36.0 g/dL Red Cell Distribution Width 17.6 H 11.8-14.3 % Platelet Count 264 140-450 10^3/uL Mean Platelet Volume 7.3 6.9-10.8 fL Neutrophils (%) (Auto) 87.5 H 37.0-80.0 % Lymphocytes (%) (Auto) 6.5 L 10.0-50.0 % Monocytes (%) (Auto) 5.8 0.0-12.0 % Eosinophils (%) (Auto) 0.1 0.0-7.0 % Basophils (%) (Auto) 0.1 0.0-2.0 % Neutrophils # (Auto) 8.9 H 1.6-8.6 10 ^3/uL Lymphocytes # (Auto) 0.7 0.4-5.4 10 ^3/uL Monocytes # (Auto) 0.6 0-1.3 10 ^3/uL Eosinophils # (Auto) 0 0-0.8 10 ^3/uL Basophils # (Auto) 0 0-0.2 10 ^3/uL Nucleated Red Blood Cells 0.1 % SEPSIS Sepsis Screen Date sepsis recognized/suspect: Feb 07, 2025 Time Sepsis recognized/suspect: 0054 Recent Procedure: No On Antibiotic Therapy: No Respiratory Rate >20: No Heart Rate >90: No Temp<36 C (96.8 F) or >38.3 C: No SBP <90 or MAP <65 mmHG: No New Acute Mental Status Change: No Is the patient on CPAP, BIPAP,: No Physician Orders Chest Portable (02/06/25 21:22) Urinalysis (02/06/25 21:22) Electrocardigram (02/06/25 22:22) Electrocardigram (02/07/25 00:22) Cl Left Heart Cath (02/07/25 01:29) Type And Screen (02/07/25 02:07) Albuterol Medneb (Ventolin Medneb) (02/07/25 04:00) Aspirin Tablet (02/07/25 10:00) Atorvastatin (Lipitor) (02/07/25 22:00) Clopidogrel Bisulfate (Plavix) (02/07/25 10:00) Apixaban (Eliquis) (02/07/25 10:00) Losartan Tablet (Cozaar Tablet) (02/07/25 10:00) Levetiracetam Tablet (Keppra Tablet) (02/07/25 10:00) Basic Metabolic Panel (02/08/25 04:00) Troponin-I Hs (02/07/25 06:00) Glucose Blood (Accu-Chek Comfort Curve T (02/07/25 07:00) Insulin R (Human) (Insulin R) (02/07/25 07:00) Dextrose 50% Syringe (02/07/25 04:00) Admit (02/07/25 03:54) Hydrocodone-Acet 5/325mg Tab ([place] 5/32 (02/07/25 04:00) Ondansetron Hcl (Zofran) (02/07/25 04:00) Complete Blood Count (02/08/25 04:00) Cardiac Diet-2gna,Lofat,Lochol (02/07/25 Breakfast) Condition: Fair (02/07/25 03:54) Acetaminophen Tablet (Tylenol Tablet) (02/07/25 04:00) Bedrest With Bathroom Privileg (02/07/25 03:54) Nitroglycerin Sublingual (Ntrostat Subli (02/07/25 04:00) Morphine Sulfate Injection (02/07/25 04:00) Stat Ekg For Chest Pain (02/07/25 03:54) Notify Md Of Changes From Base (02/07/25 03:54) Registered Mail Clerk For 24 Hours (02/07/25 03:54) Emergency Dysrhythmia Protocol (02/07/25 03:54) Rhythm Strips Once Every Shift (02/07/25 03:54) Oxygen By Nasal Cannula (02/07/25 03:54) Stool Occult Blood (02/07/25 03:54) Admit (02/07/25 03:59) Oxygen By Nasal Cannula (02/07/25 03:59) Stat Ekg For Chest Pain (02/07/25 03:59) Notify Md Of Changes From Base (02/07/25 03:59) * Hospitalist Consult (02/07/25 ) Communication Order (02/07/25 03:59) Pantoprazole Tablet (Protonix Tablet) (02/07/25 10:00) Aspirin Enteric Coated Tablet (Ecotrin E (02/07/25 10:00) Communication Order (02/07/25 03:59) Complete Blood Count (02/07/25 09:00) Vital Signs Date Time Temp Pulse Resp B/P (MAP) Pulse Ox O2 Delivery O2 Flow Rate FiO2 02/07/25 04:14 98.1 61 18 149/61 98 0.0 21 98.1 02/07/25 01:45 61 02/07/25 00:48 80 02/07/25 00:29 98.1 93 20 149/61 (90) 97 98.1 02/07/25 00:28 96 02/07/25 00:24 108 16 149/61 02/06/25 23:48 18 98 Room Air* 0 21 02/06/25 21:17 61 02/06/25 21:10 98.4 73 16 153/60 98 98.4 02/06/25 21:10 98 Room Air* 0 21 Laboratory Tests Test 02/06/25 21:27 White Blood Count 10.1 10^3/uL (4.4-10.8) Medications Medications Dose Ordered Sig/[place] Route Start Time Stop Time Status Last Admin Dose Admin Albuterol 20 mg ONCE ONCE NEB 02/06/25 23:30 02/06/25 23:31 DC 02/06/25 23:48 20 MG Morphine Sulfate 4 mg ONCE ONCE IV 02/07/25 00:30 02/07/25 00:31 DC 02/07/25 00:24 4 MG Ondansetron HCl 4 mg ONCE ONCE IV 02/07/25 00:30 02/07/25 00:31 DC 02/07/25 00:30 4 MG Assessment/Plan Assessment/Plan Assessment STEMI COPD Anemia Diabetes mellitus Hypertension Plan Admit the patient to [facility] to the hospitalist Cardiology consultation NPO Resume home medications Continue treatment per orders. Total critical care time excluding procedures performed Plan discussed with: Patient My Orders Orders - LYNNETTE GUTHRIE Procedure Category Date Status Time Albuterol Medneb PHA 02/07/25 In Process (Ventolin Medneb) 04:00 Aspirin Tablet PHA 02/07/25 In Process 10:00 Atorvastatin (Lipitor) PHA 02/07/25 In Process 22:00 Clopidogrel Bisulfate PHA 02/07/25 In Process (Plavix) 10:00 Apixaban (Eliquis) PHA 02/07/25 In Process 10:00 Losartan Tablet PHA 02/07/25 In Process (Cozaar Tablet) 10:00 Levetiracetam Tablet PHA 02/07/25 In Process (Keppra Tablet) 10:00 Basic Metabolic Panel LAB 02/08/25 Verified 04:00 Troponin-I Hs LAB 02/07/25 Logged 06:00 Glucose Blood PHA 02/07/25 In Process (Accu-Chek Comfort 07:00 Insulin R (Human) PHA 02/07/25 In Process (Insulin R) 07:00 Dextrose 50% Syringe PHA 02/07/25 In Process 04:00 Admit ADMIT 02/07/25 Transmitted 03:54 Hydrocodone-Acet PHA 02/07/25 In Process 5/325mg Tab ([place] 04:00 Ondansetron Hcl PHA 02/07/25 In Process (Zofran) 04:00 Complete Blood Count LAB 02/08/25 Verified 04:00 Cardiac DIET 02/07/25 Transmitted Diet-2gna,Lofat,Lochol Breakfast Condition: Fair JAMIL 02/07/25 In Process 03:54 Acetaminophen Tablet PHA 02/07/25 In Process (Tylenol Tablet) 04:00 Bedrest With Bathroom [facility] 02/07/25 In Process Privileg 03:54 Nitroglycerin [facility] 02/07/25 In Process Sublingual (Ntrostat 04:00 Morphine Sulfate [facility] 02/07/25 In Process Injection 04:00 Stat Ekg For Chest [facility] 02/07/25 In Process Pain 03:54 Notify Md Of Changes [facility] 02/07/25 In Process From Base 03:54 Registered Mail Clerk For [facility] 02/07/25 In Process 24 Hours 03:54 Emergency Dysrhythmia [facility] 02/07/25 In Process Protocol 03:54 Rhythm Strips Once [facility] 02/07/25 In Process Every Shift 03:54 Oxygen By Nasal RT 02/07/25 Transmitted Cannula 03:54 Stool Occult Blood LAB 02/07/25 Logged 03:54 Date of Service: Feb 07, 2025 Billing Provider: LYNNETTE GUTHRIE Common Visit Codes: [id number] CARE 30-74 MIN LYNNETTE GUTHRIE Feb 07, 2025 04:38
[2025-02-07] MEDS: NITROGLYCERIN 0.4 MG SL TAB SL PRN (04:43)
[2025-02-07] MEDS: MORPHINE SULFATE INJ 2 MG/ml SYRG IV PRN (04:57)
[2025-02-07] MEDS: MORPHINE SULFATE 4 MG/ML SYR/VIAL ONE (05:00)
[2025-02-07] MEDS: ACCU-CHEK COMFORT CURVE STRIP VI SCH (06:38)
[2025-02-07 06:40] LABS: Urine Protein, UAD Negative (Negative)
[2025-02-07] MEDS: InsuLIN REG 1unit/0.01ml Soln (100units/ml) SC SCH (06:44)
[2025-02-07 08:35] LABS: Hematocrit 22.4 % (41.0-53.0); Mean Corpuscular Hemoglobin 25.6 pg (28.0-32.0); Mean Corpuscular Volume 82.3 fL (80.0-100.0); Nucleated Red Blood Cells % 0.0 %
[2025-02-07 08:39] LABS: Hemoglobin 7.0 g/dL (13.5-17.5)
[2025-02-07 09:05] LABS: Triglycerides 125.0 mg/dL (< 150)
[2025-02-07 09:06] LABS: Magnesium 2.5 mg/dL (1.6-2.6)
[2025-02-07 09:07] LABS: Cholesterol 145.0 mg/dL (< 200); HDL Cholesterol 55.0 mg/dL (40-59)
[2025-02-07 09:24] LABS: Alanine Aminotransferase 40 U/L (7-40); Albumin 3.4 g/dL (3.2-4.8); Alkaline Phosphatase 57 U/L (46-116); Anion Gap 11 (5-15); BUN/Creatinine Ratio 23.6 (10.0-20.0); Calcium 8.9 mg/dL (8.7-10.4); Carbon Dioxide 28 mmol/L (20-31); Chloride 102 mmol/L (98-107); Sodium 141 mmol/L (136-145)
[2025-02-07 09:27] LABS: Bilirubin, Total < 0.2 mg/dL (0.2-1.0); Blood Urea Nitrogen 26 mg/dL (9-23); Glucose 333 mg/dL (74-106); Potassium 5.3 mmol/L (3.5-5.1); Total Protein 5.4 g/dL (5.7-8.2)
[2025-02-07] MEDS ORDERED: APIXABAN 5 MG TAB PO SCH (10:00)
[2025-02-07] MEDS: LOSARTAN POTASSIUM 50 MG TAB PO SCH (10:48)
[2025-02-07] MEDS: PANTOPRAZOLE 40 MG TAB PO ONE (10:54)
[2025-02-07] MEDS: levETIRAcetam 500 MG TAB PO SCH (10:54)
[2025-02-07] MEDS: CLOPIDOGREL BISULFATE 75 MG TAB PO SCH (10:54)
[2025-02-07] MEDS: ASPirin-EC 325mg tab PO SCH (11:17)
[2025-02-07] MEDS: NITROGLYCERIN 50MG/250ML 250 ML IV SCH (11:33)
[2025-02-07] MEDS: CALCIUM GLUC 1,000mg/50ml-NS 50 ML IV ONE ×2 (12:34)
--- NOTE | 2025-02-07 12:49 | DVHPN2 ---
Reviewed: H&P Changes from previous H/P or p: No Changes General: Per HPI Objective Vitals Vital Signs Date Time Temp Pulse Resp B/P (MAP) Pulse Ox O2 Delivery O2 Flow Rate FiO2 02/07/25 11:33 130/50 02/07/25 10:00 71 02/07/25 09:00 15 100 02/07/25 08:30 98.2 98.2 02/07/25 08:00 Nasal Cannula* 2 28 Intake/Output Intake and Output 02/07/25 07:00 Intake Total 50 ml Output Total 500 ml Balance -450 ml Intake Oral 50 ml Output Urine Total 500 ml Exam GENERAL:Abnormal, LUNGS:Normal, CVS:Normal, SKIN:Abnormal (Generalized ecchymosis), NEURO:Normal Medications Current Medications Medications Dose Ordered Sig/[place] Route Start Time Stop Time Status Last Admin Dose Admin Albuterol 2.5 mg Q6HPRN PRN NEB 02/07/25 04:00 Clopidogrel Bisulfate 75 mg DAILY PO 02/07/25 10:00 02/07/25 10:54 75 MG Losartan Potassium 100 mg DAILY PO 02/07/25 10:00 Levetiracetam 1,000 mg BID PO 02/07/25 10:00 02/07/25 10:54 1,000 MG Diagnostic Test (Pha) 1 strip ACHS 02/07/25 07:00 02/07/25 11:37 1 STRIP Insulin Human Regular ACHS SC 02/07/25 07:00 02/07/25 11:47 6 UNITS Dextrose 50 ml UD PRN IV 02/07/25 04:00 Acetaminophen/ Hydrocodone Bitart 1 tab Q4HP PRN PO 02/07/25 04:00 Ondansetron HCl 4 mg Q4HP PRN IV 02/07/25 04:00 Acetaminophen 650 mg Q6HP PRN PO 02/07/25 04:00 Nitroglycerin 0.4 mg Q5MINP PRN SL 02/07/25 04:00 02/07/25 06:13 0.4 MG Morphine Sulfate 2 mg Q30M PRN IV 02/07/25 04:00 02/07/25 04:57 2 MG Aspirin 325 mg DAILY PO 02/07/25 10:00 02/07/25 11:17 325 MG Atorvastatin Calcium 80 mg HS PO 02/07/25 22:00 Nitroglycerin 250 ml @ 1.5 mls/hr Q24H IV 02/07/25 10:45 02/07/25 11:33 1.5 MLS/HR Laboratory Results Laboratory Tests 02/07/25 07:55 Chemistry Test 02/06/25 21:27 02/07/25 00:18 02/07/25 07:55 Albumin 3.5 g/dL (3.2-4.8) 3.5 g/dL (3.2-4.8) 3.4 g/dL (3.2-4.8) Calcium Level 8.9 mg/dL (8.7-10.4) 8.9 mg/dL (8.7-10.4) 8.9 mg/dL (8.7-10.4) Total Protein 5.4 g/dL (5.7-8.2) L 5.4 g/dL (5.7-8.2) L 5.4 g/dL (5.7-8.2) L Magnesium Level 2.5 mg/dL (1.6-2.6) Coagulation Test 02/07/25 02:53 02/07/25 04:08 Activated Clotting Time Pending 198 SEC. (93-166) H Lipid panel Test 02/07/25 07:55 Cholesterol Level 145 mg/dL (< 200) HDL Cholesterol 55 mg/dL (40-59) Triglycerides Level 125 mg/dL (< 150) LFT Test 02/06/25 21:27 02/07/25 00:18 02/07/25 07:55 Alanine Aminotransferase (ALT) 36 U/L (7-40) 37 U/L (7-40) 40 U/L (7-40) Alkaline Phosphatase 53 U/L (46-116) 52 U/L (46-116) 57 U/L (46-116) Aspartate Amino Transferase (AST) 39 U/L (13-40) 36 U/L (13-40) 98 U/L (13-40) H Total Bilirubin 0.2 mg/dL (0.2-1.0) 0.2 mg/dL (0.2-1.0) < 0.2 mg/dL (0.2-1.0) L HgA1c, TSH Test 02/07/25 07:55 Hemoglobin A1c 8.3 % A1C (<5.7) H Thyroid Stimulating Hormone (TSH) 7.10 uIU/mL (0.55-4.78) H Urinalysis Test 02/07/25 04:20 Urine Color Light-yellow (Yellow) Urine Clarity Clear (Clear) Urine pH 7.0 (5.0-9.0) Urine Specific [place] > 1.035 (1.001-1.035) Urine Protein Negative (Negative) Urine Ketones Negative (Negative) Urine Blood Negative /uL (Negative) Urine Nitrite Negative (Negative) Urine Bilirubin Negative (Negative) Urine Urobilinogen Normal mg/dL (Negative) Urine Leukocyte Esterase Negative /uL (Negative) Urine RBC 1 /hpf (0 - 3) Urine Microscopic WBC < 1 /HPF (0-3) Urine Squamous Epithelial Cells Few /hpf (<5) Urine Bacteria None seen /hpf (None Seen) Urine Glucose 4+ mg/dL (Normal) H Labs and/or images reviewed: Labs reviewed by me, Image(s) reviewed by me Assessment/Plan Assessment/Plan 74-year-old male brought in by EMS. Per EMS patient was at home complaining of chest pain. States he woke up in the morning with chest pain. States it started to radiate and become 10/10. Patient reports pain on the left side. EMS arrived and fire was on scene, they gave one nitro. Patient states he also took three aspirin prior to EMS arrival. Patient does report some mild relief from the 1st nitro. Upon transport into the emergency department patient was given a 2nd nitro which did help alleviate pain a bit more, patient reports 5/10 pain upon arrival to the emergency department, patient denies any shortness the breath no fever no chills no coughing. Patient was seen yesterday for abdominal pain. States abdominal pain had subsided. 02/07: Patient is here for STEMI had stents put in yesterday cardiology. Patient now is normal sinus rhythm controlled rate, blood pressure adequate. Patient has had chest pain after procedure was given sublingual nitro but now cardiology is putting in nitroglycerin drip, which is good as long as map more than 65 and SBP more than 90.. Cardiology following and plan to take patient again to hatchery laborer. Patient potassium elevated we will give calcium gluconate and Lokelma. Hemoglobin borderline at 7.0. Giving 1 unit RBC. Patient is on Eliquis for some reason, Cardiology doing anticoagulation with Plavix and Eliquis. Patient does not know of any history of DVTs/clots/AFib. We will repeat BNP today. FF 30 p.m.. We will give some slow fluids after 250 cc LR bolus. Lung sounds clear, no pitting edema, ventriculography showed 50 percent EF. Echo pending. Upgraded to ICU. Patient is not stable for transfer to in [facility] yet. 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 Patient may need to return for angiogram. Aspirin 81 Lipitor 80 Plavix 75 LR 50 cc an hour Keppra p.o. 1 g b.i.d. Losartan 100 mg p.o. daily Sliding scale insulin mild a.c. HS Chest pain protocol with nitroglycerin drip and morphine Zofran PRN Hold off Eliquis Cardiac diet NPO midnight Give 1 unit PRBC for hemoglobin less than 7. D OU Full code Plan discussed with: Patient My Orders Orders - MARTIN GRAHAM MD Procedure Category Date Status Time Calcium Gluc PHA 02/07/25 In Process 1,000mg/50ml-Ns 12:30 Date of Service: Feb 07, 2025 Billing Provider: MARTIN GRAHAM MD Common Visit Codes: [id number] CARE 30-74 MIN MARTIN GRAHAM MD Feb 07, 2025 12:48
[2025-02-07] MEDS: SODIUM ZIRCONIUM CYCL 10 GM PAK PO ONE (13:17)
[2025-02-07] MEDS: LACTATED RINGER'S 250 ML IV ONE (13:25)
--- NOTE | 2025-02-07 13:47 | DVHPN2 ---
Consult Progress Note Subjective Other Systems: Denies any chest pain at time of assessment. Objective vital signs Vital Sign Date Time Temp Pulse Resp B/P (MAP) Pulse Ox O2 Delivery O2 Flow Rate FiO2 02/07/25 11:33 130/50 02/07/25 10:00 71 02/07/25 09:00 15 100 02/07/25 08:30 98.2 98.2 02/07/25 08:00 Nasal Cannula* 2 28 Total Intake and Output 02/06/25 02/06/25 02/07/25 15:00 23:00 07:00 Intake Total 50 ml Output Total 500 ml Balance -450 ml medications Current Medications Medications Dose Ordered Sig/[place] Route Start Time Stop Time Status Last Admin Dose Admin Albuterol 2.5 mg Q6HPRN PRN NEB 02/07/25 04:00 Clopidogrel Bisulfate 75 mg DAILY PO 02/07/25 10:00 02/07/25 10:54 75 MG Losartan Potassium 100 mg DAILY PO 02/07/25 10:00 Levetiracetam 1,000 mg BID PO 02/07/25 10:00 02/07/25 10:54 1,000 MG Diagnostic Test (Pha) 1 strip ACHS 02/07/25 07:00 02/07/25 11:37 1 STRIP Insulin Human Regular ACHS SC 02/07/25 07:00 02/07/25 11:47 6 UNITS Dextrose 50 ml UD PRN IV 02/07/25 04:00 Acetaminophen/ Hydrocodone Bitart 1 tab Q4HP PRN PO 02/07/25 04:00 Ondansetron HCl 4 mg Q4HP PRN IV 02/07/25 04:00 Acetaminophen 650 mg Q6HP PRN PO 02/07/25 04:00 Nitroglycerin 0.4 mg Q5MINP PRN SL 02/07/25 04:00 02/07/25 06:13 0.4 MG Morphine Sulfate 2 mg Q30M PRN IV 02/07/25 04:00 02/07/25 04:57 2 MG Aspirin 325 mg DAILY PO 02/07/25 10:00 02/07/25 11:17 325 MG Atorvastatin Calcium 80 mg HS PO 02/07/25 22:00 Nitroglycerin 250 ml @ 1.5 mls/hr Q24H IV 02/07/25 10:45 02/07/25 11:33 1.5 MLS/HR Lactated Ringer's 1,000 ml @ 50 mls/hr Q20H IV 02/07/25 12:45 Examination: GENERAL:Abnormal, LUNGS:Normal, CVS:Normal, SKIN:Abnormal (Generalized ecchymosis), NEURO:Normal laboratory and microbiology Laboratory Tests 02/07/25 07:55 Test 02/07/25 07:55 Range/Units Serum Glucose 333 H 74-106 mg/dL Problem List/Assessment/Plan Problem List/Assessment/Plan Acute ST-elevation myocardial infarction s/p PTCA x 4 RYDER to RCA/acute marginal branch History of coronary artery disease Hypertension Hyperlipidemia Acute anemia Type 2 diabetes mellitus COPD 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 Maldonado): Case reviewed and discussed with . The patient who came in with acute ST-elevation myocardial infarction underwent a coronary angiogram with left heart catheterization where the RCA was found to be the culprit and successful PTCA and stenting of the RCA/acute marginal branch. The patient was also noted to have significant stenosis of the circumflex and intermediate branch for which the patient will undergo a staged procedure (coronary angiogram with left heart catheterization) on 02/08/2025. The procedure was discussed with the patient in full detail including risks and benefits. Risks include but are not limited to bleeding, contrast-induced nephropathy, coronary dissection, stroke, and even . The patient understands and is agreeable to undergo the procedure. We will schedule the patient on 02/08/2025. In the meantime, continue with dual antiplatelet therapy, lipid-lowering agent, and close cardiac surveillance. A transthoracic echocardiogram was ordered for evaluation of cardiac function. Closely monitor hemoglobin and hematocrit level and transfuse as needed. Thank you for allowing us to care for this patient. Please call with any questions or concerns. Critical care time spent: 38 minutes. This medical document was created using an electronic medical record system with voice recognition software and computerized dictation system. Although this document has been carefully reviewed, there might still be some phonetic and typographical errors. Occasional wrong-word or ``sound-alike substitutions may have occurred due to the inherent limitations of voice recognition software. These areas are purely typographical due to imperfections of the software programs and do not reflect any compromise in the patient's medical care. Please read the chart carefully and recognize, using context, where these substitutions have occurred. Plan discussed with: Patient, Other (Bedside RN) Date of Service: Feb 07, 2025 Billing Provider: CHELSEY SALGUERO Common Visit Codes: [id number] CARE 30-74 MIN CHELSEY SALGUERO Feb 07, 2025 13:47
[2025-02-07] MEDS: LACTATED RINGER'S 1,000 ML IV SCH (14:46)
[2025-02-07] MEDS: MORPHINE SULFATE 4 MG/ML SYR/VIAL IV PRN (16:23)
[2025-02-07] MEDS: ALBUTEROL SULF 2.5 MG/0.5ML(0.5%) NEB SOLN NEB PRN (18:55)
[2025-02-07] MEDS: SIMETHICONE 80 MG CHEWABLE TABLET PO ONE (21:13)
[2025-02-07] MEDS: ATORVASTATIN 20 MG TAB PO SCH (21:31)
[2025-02-07] MEDS ORDERED: ATORVASTATIN 20 MG TAB PO SCH (22:00)
[2025-02-08] VITALS (47 sets, daily range): BP systolic 117–166; BP diastolic 34–77; PULSE 76–90; RESP 12–23; TEMP 98.1–99.6; O2SAT 93–100
--- NOTE | 2025-02-08 03:50 | ECG ---
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
--- NOTE | 2025-02-08 03:50 | ECG ---
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
[2025-02-08 05:41] LABS: Nucleated Red Blood Cells % 0.0 %
[2025-02-08 05:45] LABS: Hematocrit 24.8 % (41.0-53.0); Hemoglobin 8.3 g/dL (13.5-17.5); Mean Corpuscular Hemoglobin 27.3 pg (28.0-32.0); Mean Corpuscular Volume 81.9 fL (80.0-100.0)
[2025-02-08 05:49] LABS: Chloride 102 mmol/L (98-107); Potassium 4.3 mmol/L (3.5-5.1); Sodium 140 mmol/L (136-145)
[2025-02-08 05:50] LABS: Anion Gap 6 (5-15)
[2025-02-08 05:54] LABS: Calcium 8.6 mg/dL (8.7-10.4); Carbon Dioxide 32 mmol/L (20-31)
[2025-02-08 05:55] LABS: BUN/Creatinine Ratio 19.3 (10.0-20.0); Blood Urea Nitrogen 17 mg/dL (9-23)
[2025-02-08 05:56] LABS: Magnesium 1.8 mg/dL (1.6-2.6)
[2025-02-08 05:59] LABS: INR 0.97 (0.9-1.15); Partial Thromboplastin Time 26.5 SEC (24.5-34.5); Prothrombin Time 10.3 sec (9.3-11.8)
[2025-02-08 06:01] LABS: Free T3 3.39 pg/mL (2.3-4.2); Free T4 (Free Thyroxine) 0.84 ng/dL (0.89-1.76)
[2025-02-08 06:05] LABS: Glucose 201 mg/dL (74-106)
[2025-02-08] MEDS: ASPirin-EC 81 mg tab PO SCH (09:52)
[2025-02-08] MEDS ORDERED: ASPirin-EC 325mg tab PO SCH (10:00)
--- NOTE | 2025-02-08 10:39 | ECG ---
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
[2025-02-08] MEDS: fentaNYL CITRATE 100 MCG/2 ML VL ONE (14:31)
[2025-02-08] MEDS: LIDOCAINE 2%HCL (LOCAL ANESTH.) INJ 20ML MDV ONE (14:32)
[2025-02-08] MEDS: MIDAZOLAM HCL 2MG/2ML 2ml VIAL (1mg/ml) ONE (14:32)
[2025-02-08] MEDS: HEPARIN IN NS 1000Units/500mL 1,500 ML ONE (14:32)
[2025-02-08] MEDS: IODIXANOL 320MG/ML 100ML BTL IV ONE (14:32)
--- NOTE | 2025-02-08 14:44 | DVHSR ---
APPROVED REPORT EXAM: Two-dimensional and M-mode echocardiogram with Doppler and color Doppler. Blood Pressure: 135/53 mmHg INDICATION s/p STEMI RISK FACTORS Height: 65, Weight: 155 DIMENSIONS LVDd 4.3 (3.8-5.7cm) LA (2D) 4.1 (1.9-4.0cm) Aortic Root 2.7 (2.0-3.7cm) LVDs 3.0 (2.5-4.0cm) LA (MM) (1.9-4.0cm) Aortic Cusp Exc 1.4 (1.5-2.0cm) EF (%) 45.0 (55-70%) Rt. Atrium 3.9 (1.9-4.0cm) Asc. Aorta 2.8 cm IVSd 1.1 (0.7-1.1cm) RV (D) 4.6 (1.8-2.4cm) PWd 1.2 (0.7-1.1cm) Mitral Valve Mitral Mitral Stenosis E wave 1.16m/s MV Mean GR. mmHg A wave 0.85m/s MV Peak GR. 107mmHg E/A ratio 1.4 2D MVA cm2 DECEL Time 146ms PRESS 1/2 Time ms Aortic Valve Aortic Valve Aortic Stenosis V1 1.13m/s AO Mean GR. 5mmHg V2 1.63m/s AO Peak GR. 11mmHg LVOT Diameter 1.7 (1.8-2.4cm) Doppler DANNY 1.57cm2 Pulmonic Valve V2 1.16m/s Tricuspid Valve TR Velocity 2.37m/s RVSP 28mmHg Conclusion Sinus rhythm. Concentric LVH. Biatrial enlargement. Mild aortic sclerosis. Mild mitral annular calcification. Left ventricular function is borderline at 50% with anterior hypokinesis. Moderate MR Mild TR. There are no pericardial effusions. No masses or vegetations.
[2025-02-08] MEDS: ANGIOMAX 250 MG VIAL IV ONE ×2 (14:45→15:57)
[2025-02-08] MEDS: SODIUM CHL 0.9% 50 ML ONE ×2 (14:45→15:57)
[2025-02-08] MEDS: hydrALAZINE HCL 20 MG/ML VL ONE (16:13)
[2025-02-08] MEDS: CLOPIDOGREL BISULFATE 75 MG TAB ONE (16:23)
--- NOTE | 2025-02-08 16:36 | DVHOP2 ---
Operative Report - 2 Report Details Date: 02/08/25 Preop Diagnosis: Coronary artery disease Postop Diagnosis: Coronary artery disease Diabetes mellitus Hypertension. Cardiomyopathy Anemia Surgeon: Lizzy Maldonado MD Anesthesiologist: Conscious sedation Anesthesia: Mac, Local Consent: The patient was informed of the risks and benefits of the procedure. These include but are not limited to complications of anesthesia, postoperative infection, incomplete relief of symptoms, recurrence of symptoms, damage to blood vessels, nerves and tendons, deep venous thrombosis, pulmonary embolism and possible need for repeat surgery in the future. Complications: No complications Name of Procedure Performed PTCA and stenting of the circumflex and intermediate branch. Intravascular ultrasound evaluation. Shockwave therapy of the intermediate branch. Procedure Details Procedure Details: Prior local anesthesia with 2% lidocaine to the right groin and full informed consent obtained the patient was prepped and draped in usual fashion followed by placement of a 3.5 EBU guide into the left main and selective arteriography performed. Mapping purposes. We then placed a whisper wire into a significantly stenotic intermediate artery and and a Specter wire into the circumflex coronary artery. We could not perform intravascular ultrasound given the significant stenosis in the intermediate. We then placed a scoring balloon into the intermediate. This was a 2.5 x 12. We noted that there was some improvement in the lumen however we could not pass an intravascular ultrasound. We then placed a 2.5 shockwave balloon and performed five treatments at three f aide and six atmospheres. There was notable improvement in flow and diameter of the vessel. We then stented with a 2.5 by 12 mm Medtronic patricia stent at a proximally 12 atmospheres. We noticed some impingement of flow into the actual circumflex for which we then placed a two five balloon dilated the vessel proximally and placed a 2.25 x 15 mm patricia stent at a proximally 10 atmospheres. Kissing balloon technique at low pressures with both balloons. Simultaneous inflation of the balloons were in the circumflex and intermediate vessels at low pressures. 6-8 atmospheres were used. There was notably improved flow in both vessels. Resolution of lesions noted. No significant hemodynamic compromise. There appears to be no significant plaque shift into the left anterior descending coronary artery and/or left main. Impression successful PTCA and stenting of the circumflex and intermediate artery. Recommendations continue dual antiplatelet therapy. Risk factor modifications to continue. Condition Guarded Disposition Still a Patient Date of Service: Feb 08, 2025 Billing Provider: LIZZY MALDONADO Sr., MD Cardiology Common Codes: [id number] INP/OBS CARE (High) Cardiology Procedure Codes: [id number] VESSEL W/I VASC FAM, 39085 -PTCA W/STENT PLACEMENT, 15612-FJDV ADD CORONARY BRANCH LIZZY MALDONADO Sr., MD Feb 08, 2025 16:36
[2025-02-08] MEDS: SODIUM CHLORIDE 0.9% 1,000 ML IV SCH (20:01)
[2025-02-08] MEDS: HYDROcodone-ACET 5/325MG TAB PO PRN (21:48)
[2025-02-09] VITALS (49 sets, daily range): BP systolic 102–146; BP diastolic 39–81; PULSE 63–85; RESP 9–22; TEMP 98.2–99.4; O2SAT 96–100
[2025-02-09] MEDS: InsuLIN REG 1unit/0.01ml Soln (100units/ml) ONE (06:50)
[2025-02-09 07:45] LABS: Hematocrit 27.9 % (41.0-53.0); Hemoglobin 9.0 g/dL (13.5-17.5); Mean Corpuscular Hemoglobin 27.2 pg (28.0-32.0); Mean Corpuscular Volume 84.5 fL (80.0-100.0); Nucleated Red Blood Cells % 0.0 %
[2025-02-09 08:54] LABS: Alanine Aminotransferase 34 U/L (7-40); Alkaline Phosphatase 57 U/L (46-116); Anion Gap 9 (5-15); BUN/Creatinine Ratio 14.1 (10.0-20.0); Blood Urea Nitrogen 11 mg/dL (9-23); Calcium 8.7 mg/dL (8.7-10.4); Carbon Dioxide 28 mmol/L (20-31); Chloride 104 mmol/L (98-107); Glucose 179 mg/dL (74-106); Potassium 3.9 mmol/L (3.5-5.1); Sodium 141 mmol/L (136-145); Total Protein 5.2 g/dL (5.7-8.2)
[2025-02-09 08:55] LABS: Albumin 3.1 g/dL (3.2-4.8); Bilirubin, Total 0.4 mg/dL (0.2-1.0)
--- NOTE | 2025-02-09 10:37 | ECG ---
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
--- NOTE | 2025-02-09 12:34 | DVHPN2 ---
Consult Progress Note Subjective Patient reports: No new complaints Objective vital signs Vital Sign Date Time Temp Pulse Resp B/P (MAP) Pulse Ox O2 Delivery O2 Flow Rate FiO2 02/09/25 09:31 117/40 02/09/25 07:30 70 9 96 02/09/25 06:34 Nasal Cannula* 1 02/09/25 04:00 99.2 99.2 Total Intake and Output 02/08/25 02/08/25 02/09/25 15:00 23:00 07:00 Intake Total 309.0 ml 339.7 ml 641.5 ml Output Total 1550 ml 850 ml Balance 309.0 ml -1210.3 ml -208.5 ml medications Current Medications Medications Dose Ordered Sig/[place] Route Start Time Stop Time Status Last Admin Dose Admin Albuterol 2.5 mg Q6HPRN PRN NEB 02/07/25 04:00 02/07/25 18:55 2.5 MG Clopidogrel Bisulfate 75 mg DAILY PO 02/07/25 10:00 02/09/25 09:32 75 MG Losartan Potassium 100 mg DAILY PO 02/07/25 10:00 02/09/25 09:31 100 MG Levetiracetam 1,000 mg BID PO 02/07/25 10:00 02/09/25 09:32 1,000 MG Diagnostic Test (Pha) 1 strip ACHS 02/07/25 07:00 02/09/25 11:19 1 STRIP Insulin Human Regular ACHS SC 02/07/25 07:00 02/09/25 11:54 6 UNITS Dextrose 50 ml UD PRN IV 02/07/25 04:00 Acetaminophen/ Hydrocodone Bitart 1 tab Q4HP PRN PO 02/07/25 04:00 02/09/25 08:49 1 TAB Ondansetron HCl 4 mg Q4HP PRN IV 02/07/25 04:00 Acetaminophen 650 mg Q6HP PRN PO 02/07/25 04:00 Nitroglycerin 0.4 mg Q5MINP PRN SL 02/07/25 04:00 02/07/25 06:13 0.4 MG Atorvastatin Calcium 80 mg HS PO 02/07/25 22:00 02/08/25 21:48 80 MG Nitroglycerin 250 ml @ 1.5 mls/hr Q24H IV 02/07/25 10:45 02/07/25 11:33 1.5 MLS/HR Morphine Sulfate 2 mg Q30MIN PRN IV 02/07/25 16:15 02/07/25 16:23 2 MG Aspirin 81 mg DAILY PO 02/08/25 10:00 UNV Aspirin 81 mg DAILY PO 02/08/25 10:00 02/09/25 09:31 81 MG Sodium Chloride 1,000 ml @ 50 mls/hr Q20H IV 02/08/25 19:15 02/09/25 12:01 50 MLS/HR Clonidine HCl 0.1 mg Q4HP PRN PO 02/08/25 23:00 Examination: CVS:Normal (Telemetry reviewed consistent with sinus rhythm at 68 beats per minute, no overnight events noted.) laboratory and microbiology Laboratory Tests 02/09/25 06:46 Test 02/09/25 06:46 Range/Units Serum Glucose 179 H 74-106 mg/dL Problem List/Assessment/Plan Problem List/Assessment/Plan Problem List/Assessment/Plan Acute ST-elevation myocardial infarction s/p PTCA x 4 RYDER to RCA/acute marginal branch History of coronary artery disease Hypertension Hyperlipidemia Acute anemia Type 2 diabetes mellitus COPD 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 Maldonado): Case reviewed and discussed with . S/p coronary angiogram with left heart catheterization with successful PTCA and stenting of the RCA/acute marginal branch 02/07. PTCA and stenting of circumflex and intermediate artery 02/08 . Continue with dual antiplatelet therapy, lipid-lowering agent, and close cardiac surveillance. Echo with LVEF 50%, anterior hypokinesis, moderate MR. Concentric LVH. S/p 1 unit PRBC 02/07 with hemoglobin 7.0, stable, no overt signs of bleeding, hemoglobin 9.0 this morning. Do not hold DAPT. Patient previously on Eliquis for history of DVT, Eliquis to be discontinued. Thank you for allowing us to care for this patient. Please call with any questions or concerns. If hemoglobin remains stable, patient to be DC on dual antiplatelet therapy. Stable from Cardiology standpoint. Outpatient cardiology follow up advised. This medical document was created using an electronic medical record system with voice recognition software and computerized dictation system. Although this document has been carefully reviewed, there might still be some phonetic and typographical errors. Occasional wrong-word or ``sound-alike substitutions may have occurred due to the inherent limitations of voice recognition software. These areas are purely typographical due to imperfections of the software programs and do not reflect any compromise in the patient's medical care. Please read the chart carefully and recognize, using context, where these substitutions have occurred. Thank you for allowing me to participate in the management of this patient. The treatment plan was discussed with and agreed upon by patient/family including requesting consultants and ordering of imaging/procedures. Plan discussed with: Patient Date of Service: Feb 09, 2025 Billing Provider: BO CHANG Common Visit Codes: [id number] INP/OBS CARE(HIGH) BO CHANG Feb 09, 2025 12:34
[2025-02-10] VITALS (9 sets, daily range): BP systolic 126–171; BP diastolic 66–78; PULSE 60–87; RESP 16–18; TEMP 97.6–98.3; O2SAT 98–100
[2025-02-10] MEDS: METOPROLOL SUCCINATE XL 50 MG TAB PO SCH (09:07)
[2025-02-10] MEDS: ONDANSETRON HCL 4 MG/2 ML VIAL IV PRN (11:32)
--- NOTE | 2025-02-10 12:01 | DVHPN2 ---
Reviewed: Care Plan, H&P Changes from previous H/P or p: No Changes General: Per HPI Objective Vitals Vital Signs Date Time Temp Pulse Resp B/P (MAP) Pulse Ox O2 Delivery O2 Flow Rate FiO2 02/10/25 10:32 62 16 157/77 100 2.0 28 02/10/25 09:01 Nasal Cannula* 02/10/25 09:00 97.6 97.6 Intake/Output Intake and Output 02/10/25 07:00 Intake Total 1230 ml Output Total 1675 ml Balance -445 ml Intake Oral 480 ml IV Total 750 ml Output Urine Total 1675 ml Medications Current Medications Medications Dose Ordered Sig/[place] Route Start Time Stop Time Status Last Admin Dose Admin Albuterol 2.5 mg Q6HPRN PRN NEB 02/07/25 04:00 02/09/25 18:32 2.5 MG Clopidogrel Bisulfate 75 mg DAILY PO 02/07/25 10:00 02/10/25 09:06 75 MG Losartan Potassium 100 mg DAILY PO 02/07/25 10:00 02/10/25 09:06 100 MG Levetiracetam 1,000 mg BID PO 02/07/25 10:00 02/10/25 09:06 1,000 MG Diagnostic Test (Pha) 1 strip ACHS 02/07/25 07:00 02/10/25 11:32 1 STRIP Insulin Human Regular ACHS SC 02/07/25 07:00 02/10/25 06:36 4 UNITS Dextrose 50 ml UD PRN IV 02/07/25 04:00 Acetaminophen/ Hydrocodone Bitart 1 tab Q4HP PRN PO 02/07/25 04:00 02/10/25 05:06 1 TAB Ondansetron HCl 4 mg Q4HP PRN IV 02/07/25 04:00 02/10/25 11:32 4 MG Acetaminophen 650 mg Q6HP PRN PO 02/07/25 04:00 Nitroglycerin 0.4 mg Q5MINP PRN SL 02/07/25 04:00 02/07/25 06:13 0.4 MG Atorvastatin Calcium 80 mg HS PO 02/07/25 22:00 02/09/25 21:19 80 MG Morphine Sulfate 2 mg Q30MIN PRN IV 02/07/25 16:15 02/07/25 16:23 2 MG Aspirin 81 mg DAILY PO 02/08/25 10:00 UNV Aspirin 81 mg DAILY PO 02/08/25 10:00 02/10/25 09:07 81 MG Sodium Chloride 1,000 ml @ 50 mls/hr Q20H IV 02/08/25 19:15 02/10/25 11:32 50 MLS/HR Clonidine HCl 0.1 mg Q4HP PRN PO 02/08/25 23:00 Metoprolol Succinate 25 mg DAILY PO 02/10/25 10:00 02/10/25 09:07 25 MG Laboratory Results Laboratory Tests 02/09/25 06:46 Urinalysis Test 02/07/25 04:20 Urine Color Light-yellow (Yellow) Urine Clarity Clear (Clear) Urine pH 7.0 (5.0-9.0) Urine Specific [place] > 1.035 (1.001-1.035) Urine Protein Negative (Negative) Urine Ketones Negative (Negative) Urine Blood Negative /uL (Negative) Urine Nitrite Negative (Negative) Urine Bilirubin Negative (Negative) Urine Urobilinogen Normal mg/dL (Negative) Urine Leukocyte Esterase Negative /uL (Negative) Urine RBC 1 /hpf (0 - 3) Urine Microscopic WBC < 1 /HPF (0-3) Urine Squamous Epithelial Cells Few /hpf (<5) Urine Bacteria None seen /hpf (None Seen) Urine Glucose 4+ mg/dL (Normal) H Microbiology Microbiology Date/Time Source Procedure Growth Status 02/07/25 04:20 Nose MRSA Screen - Final Complete Assessment/Plan Assessment/Plan 74-year-old male brought in by EMS. Per EMS patient was at home complaining of chest pain. States he woke up in the morning with chest pain. States it started to radiate and become 10/10. Patient reports pain on the left side. EMS arrived and fire was on scene, they gave one nitro. Patient states he also took three aspirin prior to EMS arrival. Patient does report some mild relief from the 1st nitro. Upon transport into the emergency department patient was given a 2nd nitro which did help alleviate pain a bit more, patient reports 5/10 pain upon arrival to the emergency department, patient denies any shortness the breath no fever no chills no coughing. Patient was seen yesterday for abdominal pain. States abdominal pain had subsided. 02/07: Patient is here for STEMI had stents put in yesterday cardiology. Patient now is normal sinus rhythm controlled rate, blood pressure adequate. Patient has had chest pain after procedure was given sublingual nitro but now cardiology is putting in nitroglycerin drip, which is good as long as map more than 65 and SBP more than 90.. Cardiology following and plan to take patient again to director of cardiac cath lab. Patient potassium elevated we will give calcium gluconate and Lokelma. Hemoglobin borderline at 7.0. Giving 1 unit RBC. Patient is on Eliquis for some reason, Cardiology doing anticoagulation with Plavix and Eliquis. Patient does not know of any history of DVTs/clots/AFib. We will repeat BNP today. FF 30 p.m.. We will give some slow fluids after 250 cc LR bolus. Lung sounds clear, no pitting edema, ventriculography showed 50 percent EF. Echo pending. Upgraded to ICU. Patient is not stable for transfer to [facility] yet. 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 Patient may need to return for angiogram. Aspirin 81 Lipitor 80 Plavix 75 LR 50 cc an hour Keppra p.o. 1 g b.i.d. Losartan 100 mg p.o. daily Sliding scale insulin mild a.c. HS Chest pain protocol with nitroglycerin drip and morphine Zofran PRN Hold off Eliquis Cardiac diet NPO midnight Give 1 unit PRBC for hemoglobin less than 7. Plan discussed with: Patient My Orders Orders - ISAIAH LOPEZ DO Procedure Category Date Status Time Transfer Orders XFER 02/09/25 Transmitted 18:02 *Podiatry Consult CONS 02/09/25 Transmitted Rebecca(Dv) 18:02 Date of Service: Feb 08, 2025 Billing Provider: ISAIAH LOPEZ DO Common Visit Codes: [id number] INP/OBS CARE(HIGH) ISAIAH LOPEZ DO Feb 10, 2025 12:01
[2025-02-10] MEDS ORDERED: LEVE100012 PO (12:04)
[2025-02-10] MEDS ORDERED: ATOR20TA50 PO (12:04)
[2025-02-10] MEDS ORDERED: CLOP75TA70 PO ×2 (12:04)
[2025-02-10] MEDS ORDERED: ASPI-543 PO (12:04)
[2025-02-10] MEDS ORDERED: METO-6 PO (12:04)
--- NOTE | 2025-02-10 12:08 | DVHPN2 ---
Reviewed: Care Plan, H&P Changes from previous H/P or p: No Changes General: Per HPI Objective Vitals Vital Signs Date Time Temp Pulse Resp B/P (MAP) Pulse Ox O2 Delivery O2 Flow Rate FiO2 02/10/25 10:32 62 16 157/77 100 2.0 28 02/10/25 09:01 Nasal Cannula* 02/10/25 09:00 97.6 97.6 Intake/Output Intake and Output 02/10/25 07:00 Intake Total 1230 ml Output Total 1675 ml Balance -445 ml Intake Oral 480 ml IV Total 750 ml Output Urine Total 1675 ml General Appearance: Alert, Oriented X3, Cooperative Cardiovascular: Regular rate, Normal S1, Normal S2 Neuro: Normal gait, Normal speech Medications Current Medications Medications Dose Ordered Sig/[place] Route Start Time Stop Time Status Last Admin Dose Admin Albuterol 2.5 mg Q6HPRN PRN NEB 02/07/25 04:00 02/09/25 18:32 2.5 MG Clopidogrel Bisulfate 75 mg DAILY PO 02/07/25 10:00 02/10/25 09:06 75 MG Losartan Potassium 100 mg DAILY PO 02/07/25 10:00 02/10/25 09:06 100 MG Levetiracetam 1,000 mg BID PO 02/07/25 10:00 02/10/25 09:06 1,000 MG Diagnostic Test (Pha) 1 strip ACHS 02/07/25 07:00 02/10/25 11:32 1 STRIP Insulin Human Regular ACHS SC 02/07/25 07:00 02/10/25 06:36 4 UNITS Dextrose 50 ml UD PRN IV 02/07/25 04:00 Acetaminophen/ Hydrocodone Bitart 1 tab Q4HP PRN PO 02/07/25 04:00 02/10/25 05:06 1 TAB Ondansetron HCl 4 mg Q4HP PRN IV 02/07/25 04:00 02/10/25 11:32 4 MG Acetaminophen 650 mg Q6HP PRN PO 02/07/25 04:00 Nitroglycerin 0.4 mg Q5MINP PRN SL 02/07/25 04:00 02/07/25 06:13 0.4 MG Atorvastatin Calcium 80 mg HS PO 02/07/25 22:00 02/09/25 21:19 80 MG Morphine Sulfate 2 mg Q30MIN PRN IV 02/07/25 16:15 02/07/25 16:23 2 MG Aspirin 81 mg DAILY PO 02/08/25 10:00 UNV Aspirin 81 mg DAILY PO 02/08/25 10:00 02/10/25 09:07 81 MG Sodium Chloride 1,000 ml @ 50 mls/hr Q20H IV 02/08/25 19:15 02/10/25 11:32 50 MLS/HR Clonidine HCl 0.1 mg Q4HP PRN PO 02/08/25 23:00 Metoprolol Succinate 25 mg DAILY PO 02/10/25 10:00 02/10/25 09:07 25 MG Laboratory Results Laboratory Tests 02/09/25 06:46 Urinalysis Test 02/07/25 04:20 Urine Color Light-yellow (Yellow) Urine Clarity Clear (Clear) Urine pH 7.0 (5.0-9.0) Urine Specific [place] > 1.035 (1.001-1.035) Urine Protein Negative (Negative) Urine Ketones Negative (Negative) Urine Blood Negative /uL (Negative) Urine Nitrite Negative (Negative) Urine Bilirubin Negative (Negative) Urine Urobilinogen Normal mg/dL (Negative) Urine Leukocyte Esterase Negative /uL (Negative) Urine RBC 1 /hpf (0 - 3) Urine Microscopic WBC < 1 /HPF (0-3) Urine Squamous Epithelial Cells Few /hpf (<5) Urine Bacteria None seen /hpf (None Seen) Urine Glucose 4+ mg/dL (Normal) H Microbiology Microbiology Date/Time Source Procedure Growth Status 02/07/25 04:20 Nose MRSA Screen - Final Complete Labs and/or images reviewed: Labs reviewed by me, Image(s) reviewed by me Assessment/Plan Assessment/Plan 74-year-old male brought in by EMS. Per EMS patient was at home complaining of chest pain. States he woke up in the morning with chest pain. States it started to radiate and become 10/10. Patient reports pain on the left side. EMS arrived and fire was on scene, they gave one nitro. Patient states he also took three aspirin prior to EMS arrival. Patient does report some mild relief from the 1st nitro. Upon transport into the emergency department patient was given a 2nd nitro which did help alleviate pain a bit more, patient reports 5/10 pain upon arrival to the emergency department, patient denies any shortness the breath no fever no chills no coughing. Patient was seen yesterday for abdominal pain. States abdominal pain had subsided. 02/07: Patient is here for STEMI had stents put in yesterday cardiology. Patient now is normal sinus rhythm controlled rate, blood pressure adequate. Patient has had chest pain after procedure was given sublingual nitro but now cardiology is putting in nitroglycerin drip, which is good as long as map more than 65 and SBP more than 90.. 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 Patient potassium elevated we will give calcium gluconate and Lokelma. Hemoglobin borderline at 7.0. Giving 1 unit RBC. Patient is on Eliquis for some reason, Cardiology doing anticoagulation with Plavix and Eliquis. Patient does not know of any history of DVTs/clots/AFib. We will repeat BNP today. FF 30 p.m.. We will give some slow fluids after 250 cc LR bolus. Lung sounds clear, no pitting edema, ventriculography showed 50 percent EF. Echo pending. Upgraded to ICU. Patient is not stable for transfer to [facility] yet. 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 Patient may need to return for angiogram. Aspirin 81 Lipitor 80 Plavix 75 LR 50 cc an hour Keppra p.o. 1 g b.i.d. Losartan 100 mg p.o. daily Sliding scale insulin mild a.c. HS Chest pain protocol with nitroglycerin drip and morphine Zofran PRN Hold off Eliquis Cardiac diet NPO midnight Give 1 unit PRBC for hemoglobin less than 7. Plan discussed with: Patient My Orders Orders - ISAIAH LOPEZ DO Procedure Category Date Status Time Transfer Orders XFER 02/09/25 Transmitted 18:02 *Podiatry Consult CONS 02/09/25 Transmitted Rebecca(Dv) 18:02 Date of Service: Feb 09, 2025 Billing Provider: ISAIAH LOPEZ DO Common Visit Codes: [id number] INP/OBS CARE(HIGH) ISAIAH LOPEZ DO Feb 10, 2025 12:08
--- NOTE | 2025-02-10 12:08 | DVHDS2 ---
Discharge Summary Date of Admission Feb 07, 2025 at 03:54 Date of Discharge: Feb 10, 2025 Labs/Diagnostic Data: Laboratory Results Test 02/10/25 11:35 02/09/25 06:46 02/08/25 05:15 02/07/25 07:55 POC Glucose 252 mg/dl (70-106) White Blood Count 6.2 10^3/uL (4.4-10.8) Red Blood Count 3.30 10^6/uL (4.5-5.90) Hemoglobin 9.0 g/dL (13.5-17.5) Hematocrit 27.9 % (41.0-53.0) Mean Corpuscular Volume 84.5 fL (80.0-100.0) Mean Corpuscular Hemoglobin 27.2 pg (28.0-32.0) Mean Corpuscular Hemoglobin Concent 32.2 g/dL (32.0-36.0) Red Cell Distribution Width 18.2 % (11.8-14.3) Platelet Count 169 10^3/uL (140-450) Mean Platelet Volume 7.7 fL (6.9-10.8) Neutrophils (%) (Auto) 73.9 % (37.0-80.0) Lymphocytes (%) (Auto) 13.2 % (10.0-50.0) Monocytes (%) (Auto) 10.0 % (0.0-12.0) Eosinophils (%) (Auto) 2.5 % (0.0-7.0) Basophils (%) (Auto) 0.4 % (0.0-2.0) Neutrophils # (Auto) 4.6 10 ^3/uL (1.6-8.6) Lymphocytes # (Auto) 0.8 10 ^3/uL (0.4-5.4) Monocytes # (Auto) 0.6 10 ^3/uL (0-1.3) Eosinophils # (Auto) 0.2 10 ^3/uL (0-0.8) Basophils # (Auto) 0 10 ^3/uL (0-0.2) Nucleated Red Blood Cells 0.0 % Sodium Level 141 mmol/L (136-145) Potassium Level 3.9 mmol/L (3.5-5.1) Chloride Level 104 mmol/L (98-107) Carbon Dioxide Level 28 mmol/L (20-31) Anion Gap 9 (5-15) Blood Urea Nitrogen 11 mg/dL (9-23) Creatinine 0.78 mg/dL (0.700-1.30) Glomerular Filtration Rate Calc 92 mL/min (>90) BUN/Creatinine Ratio 14.1 (10.0-20.0) Serum Glucose 179 mg/dL (74-106) Calcium Level 8.7 mg/dL (8.7-10.4) Total Bilirubin 0.4 mg/dL (0.2-1.0) Aspartate Amino Transferase (AST) 78 U/L (13-40) Alanine Aminotransferase (ALT) 34 U/L (7-40) Alkaline Phosphatase 57 U/L (46-116) Total Protein 5.2 g/dL (5.7-8.2) Albumin 3.1 g/dL (3.2-4.8) Prothrombin Time 10.3 sec (9.3-11.8) Prothrombin Time INR 0.97 (0.9-1.15) Activated Partial Thromboplast Time 26.5 SEC (24.5-34.5) Magnesium Level 1.8 mg/dL (1.6-2.6) Free Thyroxine (T4) Calculated 0.84 ng/dL (0.89-1.76) Free Triiodothyronine (T3) pg/mL 3.39 pg/mL (2.3-4.2) Hemoglobin A1c 8.3 % A1C (<5.7) Troponin I High Sensitivity 43714 ng/L (</=54) Triglycerides Level 125 mg/dL (< 150) Cholesterol Level 145 mg/dL (< 200) LDL Cholesterol 82 mg/dL (< 100) HDL Cholesterol 55 mg/dL (40-59) Thyroid Stimulating Hormone (TSH) 7.10 uIU/mL (0.55-4.78) Test 02/07/25 04:20 02/07/25 04:08 02/07/25 01:16 Urine Color Light-yellow (Yellow) Urine Clarity Clear (Clear) Urine pH 7.0 (5.0-9.0) Urine Specific [place] > 1.035 (1.001-1.035) Urine Protein Negative (Negative) Urine Ketones Negative (Negative) Urine Blood Negative /uL (Negative) Urine Nitrite Negative (Negative) Urine Bilirubin Negative (Negative) Urine Urobilinogen Normal mg/dL (Negative) Urine Leukocyte Esterase Negative /uL (Negative) Urine RBC 1 /hpf (0 - 3) Urine Microscopic WBC < 1 /HPF (0-3) Urine Squamous Epithelial Cells Few /hpf (<5) Urine Bacteria None seen /hpf (None Seen) Urine Glucose 4+ mg/dL (Normal) Activated Clotting Time 198 SEC. (93-166) Iron Level 23 ug/dL (65-175) Total Iron Binding Capacity 305 ug/dL (250-425) Percent Iron Saturation 7.5 % (20-55) Other Laboratory Tests 02/09/25 06:46 Brief Hx & Hospital Course: 74-year-old male brought in by EMS. Per EMS patient was at home complaining of chest pain. States he woke up in the morning with chest pain. States it started to radiate and become 10/10. Patient reports pain on the left side. EMS arrived and fire was on scene, they gave one nitro. Patient states he also took three aspirin prior to EMS arrival. Patient does report some mild relief from the 1st nitro. Upon transport into the emergency department patient was given a 2nd nitro which did help alleviate pain a bit more, patient reports 5/10 pain upon arrival to the emergency department, patient denies any shortness the breath no fever no chills no coughing. Patient was seen yesterday for abdominal pain. States abdominal pain had subsided. 02/07: Patient is here for STEMI had stents put in yesterday cardiology. Patient now is normal sinus rhythm controlled rate, blood pressure adequate. Patient has had chest pain after procedure was given sublingual nitro but now cardiology is putting in nitroglycerin drip, which is good as long as map more than 65 and SBP more than 90.. 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 Patient potassium elevated we will give calcium gluconate and Lokelma. Hemoglobin borderline at 7.0. Giving 1 unit RBC. Patient is on Eliquis for some reason, Cardiology doing anticoagulation with Plavix and Eliquis. Patient does not know of any history of DVTs/clots/AFib. We will repeat BNP today. FF 30 p.m.. We will give some slow fluids after 250 cc LR bolus. Lung sounds clear, no pitting edema, ventriculography showed 50 percent EF. Echo pending. Upgraded to ICU. Patient is not stable for transfer to in [facility] yet. 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 Patient may need to return for angiogram. Aspirin 81 Lipitor 80 Plavix 75 LR 50 cc an hour Keppra p.o. 1 g b.i.d. Losartan 100 mg p.o. daily Sliding scale insulin mild a.c. HS Chest pain protocol with nitroglycerin drip and morphine Zofran PRN Hold off Eliquis Cardiac diet NPO midnight Give 1 unit PRBC for hemoglobin less than 7. Condition at Discharge: Good Final Diagnosis/Problems List Coronary artery diseaseDiabetes mellitus Hypertension.CardiomyopathyAnemia Discharge Disposition: Home Discharge Instruct/Medications Diet: Cardiac 2g Na,low cholest Activity: No Restrictions, As Tolerated Scheduled Albuterol Sulfate (Ventolin Mdi), 90 MCG IN Q8HR Apixaban Base (Eliquis), 10 MG PO BID Apixaban Base (Eliquis), 5 MG PO BID Aspirin (Aspirin Low Dose), 81 MG PO DAILY Aspirin (Aspir-Low), 81 MG PO DAILY Atorvastatin Calcium (Atorvastatin Calcium), 1 TAB PO DAILY, (Reported) Atorvastatin Calcium (Atorvastatin Calcium), 40 MG PO DAILY Atorvastatin Calcium (Atorvastatin Calcium), 4 TAB PO DAILY Clopidogrel Bisulfate (Clopidogrel), 75 MG PO DAILY Clopidogrel Bisulfate (Clopidogrel), 75 MG PO DAILY Insulin Glargine (Basaglar Kwikpen), 26 UNIT SC DAILY Insulin Lispro (Humalog Kwikpen), 10 UNIT SC TID Ipratropium [place] Hfa (Atrovent Hfa), 2 PUFF INH QID Ipratropium [place] Hfa (Atrovent Hfa), 2 PUFF INH QID Levetiracetam (Keppra), 1 TAB PO BID, (Reported) Levetiracetam (Keppra), 1 TAB PO BID Losartan Potassium (Losartan Potassium), 1 TAB PO DAILY, (Reported) Metoprolol Succinate (Toprol Xl), 25 MG PO DAILY Scheduled PRN Acetaminophen (Acetaminophen), 325 MG PO Q6HP PRN Durable Medical Equipment Blood Glucose Monitoring Suppl (D-Care Glucometer Kit/Glu W/Device), KIT XX [facility], (DME) Lancets Misc. (Accu-Chek Fastclix Lancet), UNIT XX [facility], (DME) Discharge Statement: "Patient was advised to return to the ER or call 911 if any headaches, dizziness, shortness of breath, chest pain, abdominal pain, bleeding, fevers, or worsening of medical condition. Patient was counseled about treatment plan, medications, possible side effects, patientverbalized understanding. All questions were answered to the best of my ability. This discharge took greater then 30 minutes in planning, reviewing documentation, counseling the patient, and discussing with other team members." ASSESSMENT ASSESSMENT Assessment Coronary artery diseaseDiabetes mellitus Hypertension.CardiomyopathyAnemia ISAIAH LOPEZ DO Feb 10, 2025 12:08
--- NOTE | 2025-02-10 12:29 | DVHPN2 ---
Consult Progress Note Subjective Patient reports: No new complaints Review of Systems: CVS:Normal (Denies any active or overnight cardiac symptoms of CP, Palpitaitons) Objective vital signs Vital Sign Date Time Temp Pulse Resp B/P (MAP) Pulse Ox O2 Delivery O2 Flow Rate FiO2 02/10/25 10:32 62 16 157/77 100 2.0 28 02/10/25 09:01 Nasal Cannula* 02/10/25 09:00 97.6 97.6 Total Intake and Output 02/09/25 02/09/25 02/10/25 15:00 23:00 07:00 Intake Total 400 ml 830 ml Output Total 1075 ml 600 ml Balance 400 ml -245 ml -600 ml medications Current Medications Medications Dose Ordered Sig/[place] Route Start Time Stop Time Status Last Admin Dose Admin Albuterol 2.5 mg Q6HPRN PRN NEB 02/07/25 04:00 02/09/25 18:32 2.5 MG Clopidogrel Bisulfate 75 mg DAILY PO 02/07/25 10:00 02/10/25 09:06 75 MG Losartan Potassium 100 mg DAILY PO 02/07/25 10:00 02/10/25 09:06 100 MG Levetiracetam 1,000 mg BID PO 02/07/25 10:00 02/10/25 09:06 1,000 MG Diagnostic Test (Pha) 1 strip ACHS 02/07/25 07:00 02/10/25 11:32 1 STRIP Insulin Human Regular ACHS SC 02/07/25 07:00 02/10/25 11:58 6 UNITS Dextrose 50 ml UD PRN IV 02/07/25 04:00 Acetaminophen/ Hydrocodone Bitart 1 tab Q4HP PRN PO 02/07/25 04:00 02/10/25 05:06 1 TAB Ondansetron HCl 4 mg Q4HP PRN IV 02/07/25 04:00 02/10/25 11:32 4 MG Acetaminophen 650 mg Q6HP PRN PO 02/07/25 04:00 Nitroglycerin 0.4 mg Q5MINP PRN SL 02/07/25 04:00 02/07/25 06:13 0.4 MG Atorvastatin Calcium 80 mg HS PO 02/07/25 22:00 02/09/25 21:19 80 MG Morphine Sulfate 2 mg Q30MIN PRN IV 02/07/25 16:15 02/07/25 16:23 2 MG Aspirin 81 mg DAILY PO 02/08/25 10:00 UNV Aspirin 81 mg DAILY PO 02/08/25 10:00 02/10/25 09:07 81 MG Sodium Chloride 1,000 ml @ 50 mls/hr Q20H IV 02/08/25 19:15 02/10/25 11:32 50 MLS/HR Clonidine HCl 0.1 mg Q4HP PRN PO 02/08/25 23:00 Metoprolol Succinate 25 mg DAILY PO 02/10/25 10:00 02/10/25 09:07 25 MG Examination: CVS:Normal (Telemetry reviewed consistent with sinus rhythm at 69 beats per minute.) laboratory and microbiology Laboratory Tests 02/09/25 06:46 Test 02/09/25 06:46 Range/Units Serum Glucose 179 H 74-106 mg/dL Problem List/Assessment/Plan Problem List/Assessment/Plan Problem List/Assessment/Plan Acute ST-elevation myocardial infarction s/p PTCA x 4 RYDER to RCA/acute marginal branch History of coronary artery disease Hypertension Hyperlipidemia Acute anemia Type 2 diabetes mellitus COPD 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 Maldonado): Case reviewed and discussed with . S/p coronary angiogram with left heart catheterization with successful PTCA and stenting of the RCA/acute marginal branch 02/07. PTCA and stenting of circumflex and intermediate artery 02/08 . Continue with dual antiplatelet therapy, lipid-lowering agent, and close cardiac surveillance. Echo with LVEF 50%, anterior hypokinesis, moderate MR. Concentric LVH. S/p 1 unit PRBC 02/07 with hemoglobin 7.0, stable, no overt signs of bleeding, hemoglobin 9.0 this morning. Do not hold DAPT. Patient previously on Eliquis for history of DVT, Eliquis to be discontinued. Thank you for allowing us to care for this patient. Please call with any questions or concerns. If hemoglobin remains stable, patient to be DC on dual antiplatelet therapy. Stable from Cardiology standpoint. Outpatient cardiology follow up advised. Metoprolol 25 mg po daily added This medical document was created using an electronic medical record system with voice recognition software and computerized dictation system. Although this document has been carefully reviewed, there might still be some phonetic and typographical errors. Occasional wrong-word or ``sound-alike substitutions may have occurred due to the inherent limitations of voice recognition software. These areas are purely typographical due to imperfections of the software programs and do not reflect any compromise in the patient's medical care. Please read the chart carefully and recognize, using context, where these substitutions have occurred. Thank you for allowing me to participate in the management of this patient. The treatment plan was discussed with and agreed upon by patient/family including requesting consultants and ordering of imaging/procedures. Plan discussed with: Patient Date of Service: Feb 10, 2025 Billing Provider: BO CHANG Common Visit Codes: [id number] INP/OBS CARE(HIGH), [id number] CARE 30-74 MIN BO CHANG Feb 10, 2025 12:29
--- NOTE | 2025-02-11 13:44 | ECG ---
[facility] Test Date: 2025-02-08 Test Time: 08:09:29 Pat Name: MARY JANE BRITT Department: Respiratoy Room: 0217T B Gender: M Implementation Project Manager: RYAN : 1950 Requested By: LIZZY MALDONADO Order Number: [id number] Reading MD: Lizzy Maldonado Measurements Intervals [place] Rate: 81 P: 63 OK: 221 QRS: 10 QRSD: 93 T: 57 QT: 380 QTc: 441 Interpretive Statements Sinus rhythm Atrial premature complex Prolonged OK interval Minimal ST depression, lateral leads Electronically Signed On 02-14-2025 18:16:35 PST by Lizzy Maldonado Please click the below link to view image of tracing.
== END 2025-02-10 17:50 | disposition home or self-care (01) | DRG 323 ==
LOC: EDBD 21:06 → ER 21:06 → OVERFLOW 02-07 03:54 → DOU 02-07 04:00 → TELE-CENTR 02-09 23:35
PROVIDERS: ADMIT Student in an Organized Health Care Education/Training Program; ATTEND Student in an Organized Health Care Education/Training Program
PROC: 027037Z Dilation of Coronary Artery, One Artery with Four or More Drug-eluting Intraluminal Devices, Percutaneous Approach (ICD-10-PCS; principal; 2025-02-07)
PROC: 4A023N7 Measurement of Cardiac Sampling and Pressure, Left Heart, Percutaneous Approach (ICD-10-PCS; 2025-02-07)
PROC: B211YZZ Fluoroscopy of Multiple Coronary Arteries using Other Contrast (ICD-10-PCS; 2025-02-07)
PROC: B215YZZ Fluoroscopy of Left Heart using Other Contrast (ICD-10-PCS; 2025-02-07)
PROC: 02F03ZZ Fragmentation in Coronary Artery, One Artery, Percutaneous Approach (ICD-10-PCS; 2025-02-08)
PROC: 027135Z Dilation of Coronary Artery, Two Arteries with Two Drug-eluting Intraluminal Devices, Percutaneous Approach (ICD-10-PCS; 2025-02-08)
PROC: B240ZZ3 Ultrasonography of Single Coronary Artery, Intravascular (ICD-10-PCS; 2025-02-08)
DX: I21.29 ST elevation (STEMI) myocardial infarction involving other sites (principal); N17.0 Acute kidney failure with tubular necrosis; E87.5 Hyperkalemia; Z79.01 Long term (current) use of anticoagulants; Z79.02 Long term (current) use of antithrombotics/antiplatelets; E11.40 Type 2 diabetes mellitus with diabetic neuropathy, unspecified; I10 Essential (primary) hypertension; J44.9 Chronic obstructive pulmonary disease, unspecified; I77.1 Stricture of artery; G40.909 Epilepsy, unspecified, not intractable, without status epilepticus; I42.9 Cardiomyopathy, unspecified; I25.10 Atherosclerotic heart disease of native coronary artery without angina pectoris; D64.9 Anemia, unspecified; E78.5 Hyperlipidemia, unspecified; Z86.718 Personal history of other venous thrombosis and embolism; Z79.4 Long term (current) use of insulin; Z90.49 Acquired absence of other specified parts of digestive tract; Z79.899 Other long term (current) drug therapy; Z79.82 Long term (current) use of aspirin; E86.0 Dehydration
CPT/HCPCS: 36415; 36430; 71045; 80048; 80053; 80061; 81001; 82962; 83036; 83540; 83550; 83735; 84132; 84439; 84443; 84481; 84484; 85025; 85610; 85730; 86850; 86900; 86901; 86920; 87081; 92928; 92941; 92972; 92978; 92979; 93005; 93306; 93458; 94640; 99152; 99291; C1874; C1887; G0378; J1815; J2250; J2405; Q9967